=== PATIENT | female | born 1960 | race Caucasian/White ===

== ENCOUNTER → 2016-05-24 | Outpatient (CLI) | payer BC ==
[~2016-05-24] VITALS: Ht 162.6 cm; Wt 53.5 kg
[~2016-05-24] MED LIST: LIDOCAINE 2% INJ 100 MG/5 ML SDV (FOR ANES.) As Ordered ONE; METO25TAB PO; NS 1,000 ML IV SCH; PROPOFOL 200 MG/20 ML VIAL As Ordered ONE; TRAM50TA2 PO
--- NOTE | 2016-05-24 12:25 | ROOR ---
Patient Name: Diana Bonner Procedure Date: 05/24/2016 12:07 PM Date of : 1960 Age: 55 Room: [facility] Gender: Female Note Status: Finalized Procedure: Upper GI endoscopy + Biopsies Indications: Nausea with vomiting Providers: Mathew Haas MD Referring MD: WILFREDO SMITH MD Requesting Provider: Medicines: Monitored Anesthesia Care Complications: No immediate complications. Procedure: Pre-Anesthesia Assessment: - The heart rate, respiratory rate, oxygen saturations, blood pressure, adequacy of pulmonary ventilation, and response to care were monitored throughout the procedure. The Endoscope was introduced through the mouth, and advanced to the second part of duodenum. The upper GI endoscopy was accomplished without difficulty. The patient tolerated the procedure well. Findings: The Z-line was regular and was found 38 cm from the incisors. A small hiatus hernia was present. Localized minimal inflammation characterized by congestion (edema) and erythema was found in the gastric antrum. Biopsies were taken with a cold forceps for Helicobacter pylori testing. The exam of the duodenum was otherwise normal. Impression: - Z-line regular, 38 cm from the incisors. - Small hiatus hernia. - Chronic gastritis. Biopsied. - The examination was otherwise normal. Recommendation: - Patient has a contact number available for emergencies. The signs and symptoms of potential delayed complications were discussed with the patient. Return to normal activities tomorrow. Written discharge instructions were provided to the patient. - Discharge patient to home. - Follow an antireflux regimen. - Continue present medications. - Await pathology results. - Telephone GI clinic for pathology results in 1 week. - Return to referring physician. - The findings and recommendations were discussed with the patient's family. Mathew Haas MD Mathew Haas MD 05/24/2016 12:25:40 PM This report has been signed electronically. Number of Addenda: 0 Note Initiated On: 05/24/2016 12:07 PM Estimated Blood Loss: Estimated blood loss: none.
--- NOTE | 2016-05-24 12:44 | ROOR ---
Patient Name: Diana Bonner Procedure Date: 05/24/2016 12:08 PM Date of : 1960 Age: 55 Room: [facility] Gender: Female Note Status: Finalized Procedure: Colonoscopy to Cecum Indications: Screening for colorectal malignant neoplasm, Incidental - Abnormal CT of the GI tract Providers: Mathew Haas MD Referring MD: WILFREDO SMITH MD Requesting Provider: Medicines: Monitored Anesthesia Care Complications: No immediate complications. Procedure: Pre-Anesthesia Assessment: - The heart rate, respiratory rate, oxygen saturations, blood pressure, adequacy of pulmonary ventilation, and response to care were monitored throughout the procedure. The Colonoscope was introduced through the anus and advanced to the cecum, identified by appendiceal orifice and ileocecal valve. The colonoscopy was performed without difficulty. The patient tolerated the procedure well. The quality of the bowel preparation was good. Findings: The perianal and digital rectal examinations were normal. Non-bleeding internal hemorrhoids were found during retroflexion. The hemorrhoids were small and Grade I (internal hemorrhoids that do not prolapse). Scattered small-mouthed diverticula were found in the recto-sigmoid colon, in the sigmoid colon and in the descending colon. The exam was otherwise without abnormality on direct and retroflexion views. Impression: - Non-bleeding internal hemorrhoids. - Diverticulosis in the recto-sigmoid colon, in the sigmoid colon and in the descending colon. - The examination was otherwise normal on direct and retroflexion views. - No specimens collected. - The exam was otherwise normal to the cecum. Recommendation: - Patient has a contact number available for emergencies. The signs and symptoms of potential delayed complications were discussed with the patient. Return to normal activities tomorrow. Written discharge instructions were provided to the patient. - High fiber diet. - Discharge patient to home. - Continue present medications. - Repeat colonoscopy in 10 years for screening purposes. - Return to referring physician. - The findings and recommendations were discussed with the patient's family. Mathew Haas MD Mathew Haas MD 05/24/2016 12:43:51 PM This report has been signed electronically. Number of Addenda: 0 Note Initiated On: 05/24/2016 12:08 PM Estimated Blood Loss: Estimated blood loss: none.
[2016-05-24 13:00] VITALS: BP 180/90
== END ==
LOC: M OPP 10:49
PROVIDERS: ATTEND Internal Medicine Gastroenterology
DX: R93.3 Abnormal findings on diagnostic imaging of other parts of digestive tract (principal); K57.30 Diverticulosis of large intestine without perforation or abscess without bleeding; K64.0 First degree hemorrhoids; K44.9 Diaphragmatic hernia without obstruction or gangrene; K29.50 Unspecified chronic gastritis without bleeding; R11.2 Nausea with vomiting, unspecified; I25.2 Old myocardial infarction; I10 Essential (primary) hypertension; Z83.71 Family history of colonic polyps; Z57.8 Occupational exposure to other risk factors; Z79.899 Other long term (current) drug therapy; F17.200 Nicotine dependence, unspecified, uncomplicated

== ENCOUNTER → 2016-06-12 | Outpatient (CLI) | payer BC ==
[~2016-06-12] MED LIST changes: -LIDOCAINE 2% INJ 100 MG/5 ML SDV (FOR ANES.) As Ordered ONE; -NS 1,000 ML IV SCH; -PROPOFOL 200 MG/20 ML VIAL As Ordered ONE
[2016-06-12 08:55] LABS: MEAN CORPUSCULAR HGB CONC 33.2 g/dl (32.0-36.5); MEAN CORPUSCULAR VOLUME 96.3 fl (80.0-96.0); RED CELL DISTRIBUTION WIDTH 12.9 % (11.5-14.5); WHITE BLOOD COUNT 8.7 K/mm3 (4.0-10.0)
[2016-06-12 09:30] LABS: ALBUMIN 3.6 GM/DL (3.2-5.2); ALBUMIN/GLOBULIN RATIO 1.29 (1.00-1.93); BILIRUBIN,TOTAL 0.5 MG/DL (0.2-1.0); CALCIUM LEVEL 8.7 MG/DL (8.5-10.1); CREATININE FOR GFR 1.02 MG/DL (0.55-1.02); GLOMERULAR FILTRATION RATE 59.7 (>51); POTASSIUM SERUM 4.6 MEQ/L (3.5-5.1); TOTAL PROTEIN 6.4 GM/DL (6.4-8.2)
--- NOTE | 2016-06-13 00:55 | ECGEPIP ---
Stationary ECG Study [facility] Test Date: 2016-06-12 Pat Name: JORDYN MURILLO Department: Room: - Gender: F Clinical Trial Head: LEONILA : 1960 Requested By: Emilee Hu Order Number: [id number] Reading MD: Jones Florentino Measurements Intervals [place] Rate: 71 P: 73 ME: 130 QRS: -33 QRSD: 90 T: 64 QT: 398 QTc: 434 Interpretive Statements SINUS RHYTHM POSSIBLE RIGHT VENTRICULAR CONDUCTION DELAY Possible prior pancho-septal infarct Compared to the last 2 tracings in the system, no significant changes Electronically Signed On 06-13-2016 0:55:46 EST by Jones Florentino
--- NOTE | 2016-06-14 08:30 | REP ---
Lead shield chest PA and lateral views: The versus 12/03/2015. There are no infiltrates, effusions or masses. Lung ambrose are clear but again appear hyperinflated, suggestive of COPD, however, requiring clinical confirmation. The raquel, mediastinum, and bony thorax are unremarkable. Impression: There are no acute cardiopulmonary fatty changes. The lung ambrose appear chronically hyperinflated suggestive of COPD, however, requiring clinical confirmation. Signed by Ba Hargrove MD 06/12/2016 10:18 A
== END ==
LOC: M LAB 08:18
PROVIDERS: ATTEND Family Medicine
DX: I10 Essential (primary) hypertension (principal); J44.9 Chronic obstructive pulmonary disease, unspecified

== ENCOUNTER → 2016-07-29 | Outpatient (CLI) | payer BC | LOC: M LAB 11:24 | PROVIDERS: ATTEND Family Medicine | DX: E11.9 Type 2 diabetes mellitus without complications (principal) ==

== ENCOUNTER → 2016-08-27 | Outpatient (CLI) | payer BC ==
[~2016-08-27] MED LIST changes: +PROZ20CA11 PO; +VITA500055 PO
--- NOTE | 2016-08-27 15:26 | REP ---
RIGHT KNEE SERIES, COMPLETE: 08/27/2016. Comparison: 03/17/2011. Clinical history: Knee pain. Findings: Five views were provided. There is no patellar subluxation or dislocation on the sunrise view. No definite evidence of a joint effusion. There is no narrowing of the medial or lateral compartments and no visible fracture, avulsion, loose body or osteochondral defect. Small marginal osteophytes at joint margins and tibial spines. Impression: 1. Mild degenerative changes without fracture, loose body, osteochondral defect or focal lesion. No definite joint effusion. Signed by Anoop Padilla MD 08/27/2016 03:31 P
== END ==
LOC: M RAD 10:03
PROVIDERS: ATTEND Family Medicine
DX: M25.561 Pain in right knee (principal); M17.11 Unilateral primary osteoarthritis, right knee

== ENCOUNTER → 2016-08-27 | Outpatient (CLI) | payer BC ==
[2016-08-27 10:41] LABS: BASO # 0.1 K/mm3 (0.0-0.2); BASO % 0.9 % (0.0-1.0); EOS # 0.2 K/mm3 (0.0-0.50); EOS % 2.1 % (0.0-3.0); LARGE UNSTAINED CELL # 0.2 K/mm3 (0.0-0.4); LARGE UNSTAINED CELL % 2.9 % (0.0-4.0); LYMPH # 2.6 K/mm3 (1.5-4.5); LYMPH % 31.7 % (24.0-44.0); MEAN CORPUSCULAR HEMOGLOBIN 32.6 pg (27.0-33.0); MEAN CORPUSCULAR HGB CONC 33.3 g/dl (32.0-36.5); MEAN CORPUSCULAR VOLUME 98.2 fl (80.0-96.0); MONO # 0.4 K/mm3 (0.0-0.8); MONO % 5.2 % (0.0-5.0); NEUTROPHILS # 4.4 K/mm3 (1.8-7.7); NEUTROPHILS % 57.3 % (36.0-66.0); PLATELET COUNT, AUTOMATED 300 k/mm3 (150-450); RED CELL DISTRIBUTION WIDTH 12.1 % (11.5-14.5); WHITE BLOOD COUNT 7.6 K/mm3 (4.0-10.0)
[2016-08-27 11:04] LABS: ANION GAP 6 MEQ/L (8-16); BLOOD UREA NITROGEN 21 MG/DL (7-18); CALCIUM LEVEL 8.8 MG/DL (8.5-10.1); CARBON DIOXIDE LEVEL 26 MEQ/L (21-32); CHLORIDE LEVEL 108 MEQ/L (98-107); CREATININE FOR GFR 0.85 MG/DL (0.55-1.02); GLOMERULAR FILTRATION RATE > 60.0 (>51); GLUCOSE, FASTING 95 MG/DL (70-105); POTASSIUM SERUM 4.6 MEQ/L (3.5-5.1); SODIUM LEVEL 140 MEQ/L (136-145)
== END ==
LOC: M LAB 09:59
PROVIDERS: ATTEND Podiatrist
DX: Z01.818 Encounter for other preprocedural examination (principal)

== ENCOUNTER → 2016-09-08 | Day surgery (SDC) | payer BC ==
[~2016-09-08] VITALS: Ht 162.6 cm; Wt 52.2 kg
[~2016-09-08] MED LIST changes: +BACITRACIN PWD 50,000 UNITS VIAL As Ordered ONE; +BUPIVACAINE HCL 0.5% 30 ML VIAL As Ordered ONE; +LIDOCAINE 1% MDV 20ML VIAL As Ordered ONE; +LR 1,000 ML IV SCH; +MIDAZOLAM INJ 2 MG/2 ML VIAL (J2250) As Ordered ONE; +NEOSPORIN GU IRRIG 20 ML VIAL As Ordered ONE; +ONDANSETRON 4MG/2ML VIAL (J2405) As Ordered ONE; +PROPOFOL 500 MG/50 ML VIAL As Ordered ONE; +dexameTHASONE 4 MG/ML 1ML VIAL (J1100) As Ordered ONE; +fentaNYL 100 MCG/2 ML INJECTION (J3010) As Ordered ONE
[2016-09-08 11:40] VITALS: BP 155/87
--- NOTE | 2016-09-08 11:43 | REP ---
PORTABLE LEFT FOOT, THREE VIEWS: HISTORY: Postoperative. An overlying bandage is present obscuring detail. The patient is status post osteotomy of the 1st metatarsal. A metal screw is present. There is no acute fracture or dislocation. The joint spaces are normal in appearance. IMPRESSION: The patient is status post 1st metatarsal osteotomy. There is anatomic alignment. Signed by Hu Luciano MD 09/08/2016 11:57 A
--- NOTE | 2016-09-08 12:50 | RO ---
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 PROCEDURE: SURGEON: Dr. Vasyl Combs. SENIOR PARTNER: ANESTHESIA: Local MAC. IRRIGATION: Dilute bacitracin, neomycin, polymyxin B solution. HARDWARE: Right Dart-Fire 3.0 x 24 mm cannulated compression screw. HEMOSTASIS: Ankle pneumatic tourniquet at 20 mmHg for 31 minutes. DESCRIPTION OF PROCEDURE: On 09/08/2016, this 56-year-old white female was taken from her hospital room to the operating room and placed on the operating table in supine position. Following the induction of IV sedation, local and regional anesthesia, the left lower extremity was prepped and draped in the usual aseptic manner. The left lower extremity was elevated to 45 degrees from the horizontal plane for the purpose of preoperative exsanguination of the limb. During this 3-minute time period an ankle pneumatic tourniquet was applied just proximal to the medial and lateral malleolus over a well-padded site. To further exsanguinate the limb, a Blanco's Esmarch bandage was placed circumferentially extending from the digits to the distal edge of the ankle pneumatic tourniquet and rapidly inflated to 200 mmHg. Sterile draping was completed. The left lower extremity was returned to the operating table and the following procedure was performed. STEPHEN BUNIONECTOMY INTERNAL SCREW FIXATION 3.0 MM X 24 MM X ONE, LEFT FOOT: Attention was directed to the patients left foot. There was noted to be a previous cicatrix over the first metatarsophalangeal joint and this was utilized measuring approximately 5 cm in length. The incision was deepened through subcutaneous tissues, and all coursing venous tributaries were identified, underscored, clamped, cut, ligated, and electrocoagulated as necessary. A linear capsulotomy was performed in the same plane as original skin incision. The capsule and periosteal structures were then dissected free in one continuous layer dorsally, medially, and laterally, thus creating a capsule and periosteal-type envelope. The hypertrophied medial eminence was then osteotomized from dorsal to plantar through and through exiting medial to sesamoidal groove. Attention was directed to the 1st intermetatarsophalangeal space, where dissection was carried down to the level of the conjoined tendon, which was sharply dissected off the fibular sesamoid. Attention was directed to the medial surface of the 1st metatarsal, where a V-shaped osteotomy was performed with a long plantar and a short dorsal wing. Upon creation of this osteotomy, the capital fragment was transposed 40% of the width of the shaft of the 1st metatarsal and fixated with a 3.0 x 22 mm cannulated screw. The redundant cortical spike was then osteotomized from dorsal to plantar through and through. A large cystic erosion was noted in the medial surface of the 1st metatarsal. This was curetted out with a hand curet and irrigated. The redundant cortical spike was then cut with raji and bone splitting forceps and packed into the wound. Medial eminence was then contoured to the opening of the cyst and then impacted to close the cyst wall. The wound was flushed with copious amounts of dilute bacitracin, neomycin, and polymyxin B solution. Utilizing #2-0 Monocryl, the capsule was repaired in a simple interrupted and cruciate fashion. Subcutaneous tissues were coapted and maintained using #4-0 Monocryl in a simple interrupted-type fashion. The skin incision coapted and maintained utilizing #5-0 undyed Monocryl in a continuous subcuticular-type fashion. This was additionally reinforced with Steri-Strips. Following the completion of the surgical procedure, 4 mg of dexamethasone sodium phosphate was instilled proximal to the surgical site. Attention was directed towards bandaging, where a sterile compressive bandage was applied, consisting of Adaptic, 4 x 4's, 4 x 4 splints, Doris, Kerlix, and Coban. The ankle pneumatic tourniquet was rapidly deflated, and instantaneous capillary filling time was noted to digits 1 through 5 of the patient's right foot. The patient, having apparently tolerated the surgical procedure well, was taken from the operating room (OR) to the recovery room, vital signs stable, the patient afebrile, for further monitoring by the anesthesia department. All surgical specimens removed during the operative procedure were sent to pathology for gross and microscopic examination. Postoperative instructions given upon discharge.
== END | disposition home or self-care (01) ==
LOC: M SDC 07:56
PROVIDERS: ATTEND Podiatrist
DX: M20.12 Hallux valgus (acquired), left foot (principal); M79.672 Pain in left foot; I25.2 Old myocardial infarction; I10 Essential (primary) hypertension; K44.9 Diaphragmatic hernia without obstruction or gangrene; J44.9 Chronic obstructive pulmonary disease, unspecified; G47.30 Sleep apnea, unspecified; Z79.899 Other long term (current) drug therapy; F17.210 Nicotine dependence, cigarettes, uncomplicated
CPT/HCPCS: 28296; 73630; 88300; C1776; J0690; J1100; J2250; J2405; J3010

== ENCOUNTER 2016-12-26 07:30 | Emergency (ER) | payer BC, SELFPAY ==
[~2016-12-26] VITALS: Ht 162.6 cm; Wt 50.9 kg
[~2016-12-26 07:30] MED LIST changes: -BACITRACIN PWD 50,000 UNITS VIAL As Ordered ONE; -BUPIVACAINE HCL 0.5% 30 ML VIAL As Ordered ONE; -LIDOCAINE 1% MDV 20ML VIAL As Ordered ONE; -LR 1,000 ML IV SCH; +METO25TA4 PO; -METO25TAB PO; -MIDAZOLAM INJ 2 MG/2 ML VIAL (J2250) As Ordered ONE; -NEOSPORIN GU IRRIG 20 ML VIAL As Ordered ONE; -ONDANSETRON 4MG/2ML VIAL (J2405) As Ordered ONE; -PROPOFOL 500 MG/50 ML VIAL As Ordered ONE; -dexameTHASONE 4 MG/ML 1ML VIAL (J1100) As Ordered ONE; -fentaNYL 100 MCG/2 ML INJECTION (J3010) As Ordered ONE
[2016-12-26] MEDS ORDERED: METO-346 PO (07:45)
[2016-12-26] MEDS ORDERED: NORCO, ANEXSIA 5/325MG TABLET (HYDROcodone/ACETAMINOPHEN) PO ONE (08:15)
--- NOTE | 2016-12-26 09:08 | REP ---
Right ribs and PA chest: Right ribs four views: There is a fracture of the right sixth rib posterolaterally. PA chest: Comparison is the PA and lateral chest of 06/12/2016. There is no pneumothorax, hemothorax or pulmonary contusion. However, the right infrahilar zone appears enlarged as a change from the prior study. CT might be considered for further evaluation. Left lung is clear. Cardiac size is normal. Impression: The right infrahilar area appears enlarged compared to the prior study. CT might be considered for further evaluation. Signed by Ba Hargrove MD 12/26/2016 09:00 A
[2016-12-26] MEDS ORDERED: NORCOTAB PO (09:24)
[2016-12-26 09:33] VITALS: BP 151/113
[2016-12-26] MEDS ORDERED: MIRA3350 PO (09:44)
--- NOTE | 2016-12-26 13:27 | ED PDOC ---
Post-Departure Follow-Up radiology report faxed to Comfort Wiseman MD Dec 26, 2016 13:27
== END 2016-12-26 09:37 | disposition home or self-care (01) ==
LOC: M ED 07:30
DX: S22.31XA Fracture of one rib, right side, initial encounter for closed fracture (principal); W11.XXXA Fall on and from ladder, initial encounter; Y92.89 Other specified places as the place of occurrence of the external cause; Y93.89 Activity, other specified; Y99.8 Other external cause status; R93.8 Abnormal findings on diagnostic imaging of other specified body structures; I25.10 Atherosclerotic heart disease of native coronary artery without angina pectoris; F17.210 Nicotine dependence, cigarettes, uncomplicated; I25.2 Old myocardial infarction; Z79.899 Other long term (current) drug therapy

== ENCOUNTER → 2017-06-22 | Outpatient (CLI) | payer BC | LOC: M RAD 16:14 | DX: M25.561 Pain in right knee (principal) | CPT/HCPCS: 73564 ==

== ENCOUNTER → 2017-11-13 | Outpatient (CLI) | payer BC | LOC: M RAD 09:15 | DX: M54.5 Low back pain (principal) | CPT/HCPCS: 72110 ==

== ENCOUNTER 2018-09-20 17:39 | Emergency (ER) | payer BC, OTHER ==
[~2018-09-20] VITALS: Ht 162.6 cm; Wt 52.4 kg
[~2018-09-20 17:39] MED LIST changes: +HYDR-3715 PO; +METO-346 PO; +MIRA3350 PO
--- NOTE | 2018-09-20 19:27 | REPVR ---
EXAM: US Duplex Left Lower Extremity Veins, Limited EXAM DATE/TIME: 09/20/2018 6:45 PM CLINICAL HISTORY: 58 years old, female; Pain; Leg, lower; Left; Additional info: Pain, swelling TECHNIQUE: Imaging protocol: Real-time Duplex ultrasound of the Left Lower Extremity with 2-D byrd scale, color Doppler flow and spectral waveform analysis. Limited exam focused on the left lower extremity veins. COMPARISON: No relevant prior studies available. FINDINGS: Left deep veins: Unremarkable. The common femoral, femoral, proximal profunda femoral and popliteal veins are patent without thrombus. Normal Doppler waveforms. Normal compressibility and/or augmentation response. Left superficial veins: Unremarkable. Saphenofemoral junction is patent without thrombus. Soft tissues: Unremarkable. IMPRESSION: No acute findings. No evidence of deep vein thrombosis. Electronically signed by: Antoinette Price On 09/20/2018 19:27:09 PM
[2018-09-20 20:12] VITALS: BP 126/87
[2018-09-20] MEDS ORDERED: NEUR100C PO (20:19)
[2018-09-20] MEDS ORDERED: NAPR-837 PO (20:19)
[2018-09-20] MEDS ORDERED: GABAPENTIN 100 MG CAP PO ONE (20:30)
[2018-09-20] MEDS ORDERED: NAPROXEN 250 MG TAB PO ONE (20:30)
== END 2018-09-20 20:32 | disposition home or self-care (01) ==
LOC: M ED 17:39
DX: M79.662 Pain in left lower leg (principal); J44.9 Chronic obstructive pulmonary disease, unspecified; F17.210 Nicotine dependence, cigarettes, uncomplicated

== ENCOUNTER → 2018-10-18 | Outpatient (REF) | payer OTHER, MEDICAID ==
[~2018-10-18] MED LIST changes: +NAPR-837 PO; +NEUR100C PO
[2018-10-18 18:41] LABS: BASO # 0.1 10^3/uL (0.0-0.2); BASO % 1.1 % (0.0-1.0); EOS # 0.2 10^3/uL (0.0-0.50); EOS % 2.4 % (0.0-3.0); HEMATOCRIT 41.2 % (36.0-47.0); HEMOGLOBIN 15.5 g/dl (12.0-15.5); LYMPH # 2.3 10^3/uL (1.5-4.5); LYMPH % 27.9 % (24.0-44.0); MEAN CORPUSCULAR HEMOGLOBIN 38.9 pg (27.0-33.0); MEAN CORPUSCULAR VOLUME 103.5 fl (80.0-96.0); MONO # 0.7 10^3/uL (0.0-0.8); MONO % 8.7 % (0.0-5.0); NEUTROPHILS % 59.8 % (36.0-66.0); PLATELET COUNT, AUTOMATED 397 10^3/uL (150-450); RED BLOOD COUNT 3.98 10^6/uL (4.00-5.40); WHITE BLOOD COUNT 8.3 10^3/uL (4.0-10.0)
[2018-10-18 18:42] LABS: MEAN CORPUSCULAR HGB CONC 37.6 g/dl (32.0-36.5)
[2018-10-18 18:44] LABS: ALBUMIN 3.3 GM/DL (3.2-5.2); ALT/SGPT 16 U/L (12-78); BILIRUBIN,TOTAL 0.2 MG/DL (0.2-1.0); BLOOD UREA NITROGEN 14 MG/DL (7-18); CALCIUM LEVEL 8.5 MG/DL (8.5-10.1); CARBON DIOXIDE LEVEL 26 MEQ/L (21-32); CHLORIDE LEVEL 106 MEQ/L (98-107); CHOLESTEROL LEVEL 206 MG/DL (<200); CHOLESTEROL RISK RATIO 3.169 (<5); CREATININE FOR GFR 0.78 MG/DL (0.55-1.30); FREE T4 1.25 NG/DL (0.76-1.46); GLOMERULAR FILTRATION RATE > 60.0 (>51); GLUCOSE, FASTING 75 MG/DL (70-100); HDL CHOLESTEROL 65 MG/DL (>40); LDL CHOLESTEROL 116 MG/DL (<100); NON-HDL-C 141 MG/DL; POTASSIUM SERUM 4.9 MEQ/L (3.5-5.1); SODIUM LEVEL 138 MEQ/L (136-145); THYROID STIMULATING HORMONE 0.849 uIU/ML (0.358-3.740); TOTAL 25(OH) VITAMIN D 14.3 NG/ML (30.0-100.0); TOTAL PROTEIN 6.4 GM/DL (6.4-8.2); TRIGLYCERIDES LEVEL 126 MG/DL (<150)
[2018-10-18 19:20] LABS: HEMOGLOBIN A1c 5.2 %
[2018-10-21 00:06] LABS: Lyme Disease IgG/IgM Antibodie <0.91 ISR (0.00-0.90); Lyme Disease IgM Ab Quantitati <0.80 index (0.00-0.79)
== END ==
LOC: M LAB REF 17:05
PROVIDERS: ATTEND Family Medicine
DX: Z13.228 Encounter for screening for other metabolic disorders (principal)

== ENCOUNTER → 2018-11-08 | Outpatient (CLI) | payer OTHER ==
--- NOTE | 2018-11-08 10:03 | REP ---
Clinical: Symptoms related to atherosclerotic disease including absent pulses on physical examination. Technique: Real time byrd scale and color Doppler evaluation of the bilateral lower extremity arterial vasculature using linear high frequency transducer. Findings: There is evidence for significant bilateral inflow disease originating above the level of the common iliac arteries as well as moderate to significant elements of stenosis involving the bilateral external iliac arteries (left greater than right) based on obtainable velocities. Right lower extremity below the common femoral artery demonstrates elements of narrowing without significant focal stenosis appreciated. Left lower extremity demonstrates elements of narrowing as well as complete occlusion to the mid/distal superficial femoral artery extending to the level of the proximal anterior tibial artery where revascularization from a large collateral originating above the level of occlusion is noted. Aorta 61 cm/sec Right common iliac artery 167 cm/sec. Right external iliac artery 214 cm/sec. Left common iliac artery 49 - 142 cm/sec. Left external iliac artery 464 cm/sec. Peak systolic velocities (cm/sec) RIGHT LEFT Common femoral artery 209 (triphasic) 206 (monophasic) Profunda femoris 113 (monophasic) 121 (monophasic) SFA (proximal) 118 (triphasic) 112 (monophasic) SFA (mid) 104 (triphasic) 75 (monophasic) SFA (distal) 98 (triphasic) occluded Popliteal artery 58 (biphasic) occluded FESTUS (prox.) 29 (biphasic) occluded Tibioperoneal trunk 42 (biphasic) 11 (monophasic) WIRE DRAWING MACHINE OPERATOR (prox.) 52 (biphasic) 21 (monophasic) WIRE DRAWING MACHINE OPERATOR (distal) 35 (biphasic) 6 (monophasic) FESTUS (distal) 37 (biphasic) 8 (monophasic) Impression: Significant atherosclerotic disease as described above. Electronically Signed by Douglas Vences MD 11/08/2018 09:55 A
== END ==
LOC: M RAD 08:12
PROVIDERS: ATTEND Podiatrist Foot & Ankle Surgery
DX: I73.9 Peripheral vascular disease, unspecified (principal)

== ENCOUNTER → 2018-11-22 | Outpatient (CLI) | payer OTHER ==
[~2018-11-22] MED LIST changes: +OMEP40CA2 PO; +RA M500C PO; +VITA50005 PO
[2018-11-22 15:00] LABS: BASO # 0.1 10^3/uL (0.0-0.2); BASO % 0.9 % (0.0-1.0); EOS # 0.2 10^3/uL (0.0-0.50); EOS % 2.2 % (0.0-3.0); HEMATOCRIT 51.2 % (36.0-47.0); HEMOGLOBIN 17.3 g/dl (12.0-15.5); LYMPH # 3.3 10^3/uL (1.5-4.5); LYMPH % 33.6 % (24.0-44.0); MEAN CORPUSCULAR HEMOGLOBIN 32.5 pg (27.0-33.0); MEAN CORPUSCULAR HGB CONC 33.8 g/dl (32.0-36.5); MEAN CORPUSCULAR VOLUME 96.2 fl (80.0-96.0); MONO # 0.8 10^3/uL (0.0-0.8); NEUTROPHILS # 5.4 10^3/uL (1.8-7.7); NEUTROPHILS % 55.1 % (36.0-66.0); PLATELET COUNT, AUTOMATED 451 10^3/uL (150-450); RED BLOOD COUNT 5.32 10^6/uL (4.00-5.40); WHITE BLOOD COUNT 9.8 10^3/uL (4.0-10.0)
[2018-11-22 15:24] LABS: CREATININE FOR GFR 1.12 MG/DL (0.55-1.30); POTASSIUM SERUM 4.8 MEQ/L (3.5-5.1)
== END ==
LOC: M LAB 14:11
PROVIDERS: ATTEND Surgery Vascular Surgery
DX: R10.31 Right lower quadrant pain (principal); F17.210 Nicotine dependence, cigarettes, uncomplicated; I70.213 Atherosclerosis of native arteries of extremities with intermittent claudication, bilateral legs

== ENCOUNTER → 2018-11-24 | Outpatient (CLI) | payer OTHER ==
--- NOTE | 2018-11-24 11:12 | REP ---
CT CHEST WITHOUT CONTRAST: Low-dose screening exam. HISTORY: Nicotine dependence. Lung cancer screening. Comparison is made with right rib radiographs from December 26, 2016. CT FINDINGS: There is a fairly large coarse band of fibroatelectatic change through the right middle lobe. This may have been present previously on the December 26, 2016 radiographs. It is above the imaging field of view for the CT study of the abdomen obtained December 03, 2015. The largest portion of this band of parenchymal opacity measures 1.5 cm in greatest transverse dimension. In addition, there is a 6 mm rectangular subpleural nodular opacity in the right lower lobe on page 76 of 121 in today's study. There is a 3 mm nodule in the left lower lobe on page 81, which is visible in retrospect on 2016 prior study. There is an oval-shaped air cyst or bullous 3.7 cm in diameter in the left lower lobe. There is a 3 mm subpleural nodular opacity in the left upper lobe on page 45. The 2 mm right upper lobe subpleural nodule is seen on page 38. There are mild bilateral upper lobe emphysematous changes. No other significant pulmonary nodule is appreciated. IMPRESSION: Possibly chronic fibroatelectatic band of opacity in the right middle lobe. 6 mm nodule in the right lower lobe. Scattered smaller nodules. Lung RADS category 3 probably benign findings. 3- 6 month follow-up CT study recommended. Electronically Signed by Leopoldo Corona MD 11/24/2018 12:37 P
== END ==
LOC: M RAD 08:32
PROVIDERS: ATTEND Family Medicine
DX: Z12.2 Encounter for screening for malignant neoplasm of respiratory organs (principal); F17.210 Nicotine dependence, cigarettes, uncomplicated

== ENCOUNTER → 2018-11-28 | Outpatient (CLI) | payer OTHER ==
[~2018-11-28] MED LIST changes: +ASPI81CH8 PO; +ASPI81TA85 PO; +ATOR1TAB21 PO; +ATOR80TA59 PO; +DULC10SU2 PR; +ELIQ5TAB PO; +GABA-845 PO; +HYDR12CA PO; +LORA1TAB4 PO; +METO1TAB87 PO; +METO50TA7 PO; +NAPR-885 PO; +NITR0.3S4 SL; -OMEP40CA2 PO; +OMEP40CA97 PO; +OXYC1TAB23 PO; +PANT40TA3 PO; +PATIENT COMMENTS; +POTA1TAB14 PO; +REME15TA PO
--- NOTE | 2018-11-28 11:05 | REP ---
DUPLEX DOPPLER ULTRASOUND CELIAC AND SUPERIOR MESENTERIC ARTERY: Real-time ultrasound evaluation and duplex Doppler interrogation of celiac and superior mesenteric arteries performed in the fasting state and following a meal challenge. In the fasting state, there is elevated peak systolic velocity of the celiac axis at 296 cm/s, end diastolic velocity is 65.7 cm/s. The elevated peak systolic velocity is suggestive of stenosis 70% or greater. Proximal superior mesenteric artery demonstrates fasting peak systolic velocity 242 cm/s and mid superior mesenteric artery 212 cm/s. These values do not fulfill criteria for superior mesenteric artery stenosis. Flow velocities increase in a relatively normal fashion following meal challenge. 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 No compelling duplex Doppler sonographic evidence of significant stenosis of the superior mesenteric artery. Electronically Signed by Ba Ellis MD 11/28/2018 05:31 P
== END ==
LOC: M RAD 07:23
PROVIDERS: ATTEND Surgery Vascular Surgery
DX: R11.2 Nausea with vomiting, unspecified (principal)

== ENCOUNTER 2018-12-12 06:53 | Inpatient (IN) | payer OTHER ==
[~2018-12-12] VITALS: Ht 162.6 cm; Wt 52.3 kg
[~2018-12-12 06:53] MED LIST changes: -ASPI81CH8 PO; -ASPI81TA85 PO; -ATOR1TAB21 PO; -ATOR80TA59 PO; -DULC10SU2 PR; -ELIQ5TAB PO; -GABA-845 PO; -HYDR12CA PO; -LORA1TAB4 PO; -METO1TAB87 PO; -METO50TA7 PO; -NITR0.3S4 SL; +OMEP40CA2 PO; -OMEP40CA97 PO; -OXYC1TAB23 PO; -PANT40TA3 PO; -PATIENT COMMENTS; -POTA1TAB14 PO; -REME15TA PO
[2018-12-12] MEDS ORDERED: BUPIVACAINE HCL 0.5% 10 ML VIAL As Ordered ONE (06:55)
[2018-12-12] MEDS ORDERED: diphenhydrAMINE INJ 50MG/ML VIAL (J1200) As Ordered ONE (06:55)
[2018-12-12] MEDS ORDERED: fentaNYL 100 MCG/2 ML INJECTION (J3010) As Ordered ONE (06:55)
[2018-12-12] MEDS ORDERED: LIDOCAINE 2% MDV 20 ML VIAL As Ordered ONE (06:56)
[2018-12-12] MEDS ORDERED: MIDAZOLAM INJ 2 MG/2 ML VIAL (J2250) As Ordered ONE (06:56)
[2018-12-12] MEDS ORDERED: HEPARIN 1,000 UNITS/ML 10ML VIAL (FOR RADIOLOGY& DIALYSIS ONLY) As Ordered ONE (06:56)
[2018-12-12] MEDS ORDERED: ISOVUE-300 61% 50ML VIAL (Q9967) As Ordered ONE (06:56)
[2018-12-12] MEDS ORDERED: ONDANSETRON 4MG/2ML VIAL (J2405) As Ordered ONE (09:46)
--- NOTE | 2018-12-12 10:20 | REP ---
Clinical: Evaluate for intraperitoneal hemorrhage. Technique: Axial noncontrast images from the lung bases to the pubic symphysis with coronal and sagittal re-formations. Findings: Lung bases demonstrate COPD and chronic interstitial changes as well as scattered ill-defined areas of opacity involving the right middle lobe and left lower lobe. Visualized heart and pericardium grossly normal. The patient appears to be status post intraluminal stent placement at the origin of the celiac access and superior mesenteric artery. Moderate atherosclerotic changes to the aorta and branch vessels noted without aneurysm. No periaortic inflammatory stranding or fluid is identified to suggest leak. Liver, spleen, pancreas, gallbladder, bilateral adrenal glands and kidneys are essentially normal. Small amount of contrast identified in the urinary tract collecting system as well as within the bladder consistent with recent contrast enhanced examination/procedure. The enteric system is without obstruction or acute inflammatory process. Scattered diverticulosis noted without acute diverticulitis. Pelvis demonstrates relatively normal bladder and evidence of prior hysterectomy. No ascites. No free air. No adenopathy. No evidence for intraperitoneal or retroperitoneal hemorrhage/hematoma. Musculoskeletal structures demonstrate age-related changes without focal osseous abnormality. Impression: 1. Status post celiac axis and superior mesenteric artery stent placement. 2. No evidence for intraperitoneal or retroperitoneal hemorrhage or hematoma. 3. No obvious acute abdominopelvic pathology appreciated. 4. Chronic changes as described above. 5. Lung bases demonstrate elements of opacity/irregularity involving the right middle lobe and left lower lobe which warrant short-term follow-up evaluation. Electronically Signed by Douglas Vences MD 12/12/2018 10:11 A
[2018-12-12] MEDS ORDERED: NORCO, ANEXSIA 5/325MG TABLET (HYDROcodone/ACETAMINOPHEN) As Ordered ONE (10:22)
[2018-12-12] MEDS: D5W/0.45% SODIUM CHLORIDE 1,000 ML IV SCH ×2 (10:36→18:14)
[2018-12-12] MEDS ORDERED: ONDANSETRON 4MG/2ML VIAL (J2405) IV PRN (10:45)
[2018-12-12] MEDS ORDERED: ACETAMINOPHEN TAB 650MG DOSE (2X325MG) PO PRN (10:45)
[2018-12-12] MEDS ORDERED: NORCO, ANEXSIA 5/325MG TABLET (HYDROcodone/ACETAMINOPHEN) PO PRN ×2 (10:45→14:00)
[2018-12-12 11:22] LABS: BASO # 0.1 10^3/uL (0.0-0.2); BASO % 0.5 % (0.0-1.0); EOS # 0.1 10^3/uL (0.0-0.50); EOS % 0.8 % (0.0-3.0); HEMATOCRIT 54.6 % (36.0-47.0); HEMOGLOBIN 18.4 g/dl (12.0-15.5); LYMPH # 2.8 10^3/uL (1.5-4.5); LYMPH % 28.3 % (24.0-44.0); MEAN CORPUSCULAR HEMOGLOBIN 33.2 pg (27.0-33.0); MEAN CORPUSCULAR HGB CONC 33.7 g/dl (32.0-36.5); MEAN CORPUSCULAR VOLUME 98.4 fl (80.0-96.0); MONO # 0.6 10^3/uL (0.0-0.8); MONO % 5.6 % (0.0-5.0); NEUTROPHILS # 6.3 10^3/uL (1.8-7.7); NEUTROPHILS % 64.5 % (36.0-66.0); PLATELET COUNT, AUTOMATED 352 10^3/uL (150-450); RED BLOOD COUNT 5.55 10^6/uL (4.00-5.40); WHITE BLOOD COUNT 9.7 10^3/uL (4.0-10.0)
[2018-12-12 11:32] LABS: PROTHROMBIN TIME 13.9 SECONDS (11.8-14.0)
[2018-12-12 12:13] LABS: BLOOD UREA NITROGEN 15 MG/DL (7-18); CALCIUM LEVEL 8.1 MG/DL (8.5-10.1); CARBON DIOXIDE LEVEL 20 MEQ/L (21-32); CHLORIDE LEVEL 106 MEQ/L (98-107); CREATININE FOR GFR 0.86 MG/DL (0.55-1.30); GLOMERULAR FILTRATION RATE > 60.0 (>51); GLUCOSE, FASTING 147 MG/DL (70-100); POTASSIUM SERUM 4.1 MEQ/L (3.5-5.1); SODIUM LEVEL 134 MEQ/L (136-145)
[2018-12-12 12:16] LABS: PARTIAL THROMBOPLASTIN TIME > 240.0 SECONDS (25.0-38.4)
[2018-12-12] MEDS ORDERED: CLOPIDOGREL 300 MG TAB (PLAVIX) PO STA (12:22)
[2018-12-12] MEDS ORDERED: CLOPIDOGREL 75 MG TAB As Ordered ONE (12:29)
[2018-12-12 13:48] VITALS: BP 160/102
[2018-12-12 14:30] VITALS: BP 150/105
[2018-12-12] MEDS: ONDANSETRON 4MG/2ML VIAL (J2405) IV PRN ×2 (15:18→21:20)
[2018-12-12 16:41] VITALS: BP 142/82
[2018-12-12] MEDS ORDERED: zolPIDEM TARTRATE 5 MG TAB PO PRN (18:15)
[2018-12-12 18:30] VITALS: BP 144/105
[2018-12-12] MEDS ORDERED: METOPROLOL TART 25 MG TABLET PO ONE ×2 (18:30→20:45)
[2018-12-12] MEDS ORDERED: PANTOPRAZOLE 40MG INJ (PROTONIX) (C9113) IV SCH (21:00)
[2018-12-12 21:50] LABS: CK-MB VALUE MASS 10.4 NG/ML (<3.6); TROPONIN I 1.6 NG/ML (< 0.10)
[2018-12-12 22:00] VITALS: BP 156/110
--- NOTE | 2018-12-12 22:11 | REPVR ---
EXAM: XR Chest, 1 View EXAM DATE/TIME: 12/12/2018 (9:36pm) CLINICAL HISTORY: 58 year old female with dypnea. Lateral CXR requested. TECHNIQUE: Imaging protocol: Lateral CXR, 1 view COMPARISON: Abdomen and CXR plain films of 12/12/18 (9:34pm) Frontal CXR of 12/26/16 FINDINGS: A lateral chest film is provided for review. A frontal chest film was obtained a few minutes earlier. Coarse interstitial disease is seen in the mid and upper lung zones (not present in 2016). No consolidation and no pleural effusions. Stable, normal heart size. No pneumothorax. IMPRESSION: Coarse, prominentlung markings noted in the mid and upper lung zones, not present 2 years ago. No consolidation and no pleural effusions. An acute bilateral interstitial pneumonitis is of concern. Clinical correlation and follow-up are suggested. Electronically signed by: Nancy Garduno On 12/12/2018 22:11:05 PM
--- NOTE | 2018-12-12 22:25 | REPVR ---
EXAM: XR Abdomen, 3 or More Views EXAM DATE/TIME: 12/12/18 (9:36pm) CLINICAL HISTORY: 58 year old female with abdominal pain. S/P stent placement today. Possible bowel obstruction or free air. Prior surgery. Surgery date: Post-operative (0-2 days). TECHNIQUE: Imaging protocol: Frontal view of the abdomen/pelvis with upright view of the abdomen and frontal CXR COMPARISON: No relevant prior studies available FINDINGS: The accompanying frontal chest film demonstrates coarse, prominent lung markings in the mid and upper lung zones. No consolidation and no pleural effusions. Hyperinflation is also noted. Abdomen films demonstrate a nonspecific bowel gas pattern. Air-filled small and large bowel loops are noted. No free air. No abnormal mass. Two (2) short adjacent metallic stents (each approx. 13 mm length) are oriented vertically, in the medial LUQ area, overlying the left margin of the L1 vertebral body. Contrast is seen in the urinary bladder. IMPRESSION: Coarse lung disease in the mid and upper lung zones, of unclear chronicity and unclear clinical significance. An acute pneumonitis cannot be excluded. No consolidation and no pleural effusions. The bowel gas pattern is nonspecific and non-obstructed. Air-filled small and large bowel loops are noted, predominantly in the lower abdomen and pelvis. 2 adjacent, short metallic stents (each 13 mm length) are seen in the medial LUQ area, oriented vertically, overlying the left margin of the L1 vertebral body. Electronically signed by: Nancy Garduno On 12/12/2018 22:24:37 PM
[2018-12-13] VITALS (14 sets, daily range): BP systolic 110–180; BP diastolic 87–142
--- NOTE | 2018-12-13 00:31 | HPEPDOC ---
General Date of Admission Dec 12, 2018 at 13:48 Date of Service: Dec 12, 2018 Chief Complaint The patient is a 58-year-old female admitted with a reason for visit of Lt Leg Pain. Source: Patient, RN/MD Exam Limitations: No limitations Severity: Moderate Associated Symptoms: Nausea History of Present Illness Consultation Report Consultation requested by Dr Kilpatrick Reason for consult: Tachycardia , uncontrolled hypertension with elevated troponin. HPI: 58 year old female with PM of PAD, left leg claudication, Celiac and SMA stenosis, AMI in the past, hypertension , Smoker, chronic cough , chronic abdo rashid pain , nausea and vomiting daily underwent elective SMA and Celiac artery stenting today. Post procedure patient complained of abdominal pain, nausea. She was noted to be tachycardic up to 160s . EKG showed sinus tachycardia, Her blood pressure was elevated and she was diaphoretic. Pateint had a CT abdomen and Xray abdomen did not show any free air or any extravasation of blood. Had a CXR which was negative for any pneumothorax. Pateint was given 50 of metoprolol and cardiac markers ordered. Troponin was elevated to 1.5 first set, pateint continued to have uncontrolled hypertension and nausea. Also remained tachycardic so the hospitalist service was consulted. Patient complained of diffuse abdominal pain but maximum in the epigastrium and left upper quadrant about 3/10 in intensity, dull aching, associated with nausea but no vomiting. Home Medications Scheduled Ergocalciferol (Vitamin D2) (Vitamin D2) 50,000 Unit Capsule, 50,000 UNIT PO QWEEK, (Reported) tuesday Magnesium Oxide (Magnesium) 500 Mg Capsule, 500 MG PO PRN, (Reported) Omeprazole (Omeprazole) 40 Mg Capsule.dr, 40 MG PO BIDP, (Reported) Scheduled PRN Naproxen (Naproxen) 500 Mg Tablet, 500 MG PO for PAIN, (Reported) Allergies Coded Allergies: No Known Allergies (Unverified , 11/24/18) Past Medical History Medical History PAD Hypertension Celiac artery and SMA stenosis Surgical History Appendectomy right oophorectomy partial hysterectomy Incisional hernia surgery in right groin Family History Significant Family History: Cancer (mother ovarian), Heart disease (father), Hypertension, Other (stroke father) Social History * Smoker: current smoker Alcohol: Denies Drugs: denies A-FIB/CHADSVASC A-FIB History Current/History of A-Fib/PAF?: No Review of Systems Constitutional: Denies: Chills, Fever, Night Sweats Eyes: Denies: Pain, Vision change ENT: Denies: Head Aches, Ear Pain, Dysphagia Skin: Reports: Rash (upper back); Denies: Lesions, Breakdown Pulmonary: Reports: Cough (chronic); Denies: Dyspnea Cardiovascular: Denies: Chest Pain, Palpitations, Orthopnea, Paroxysmal Noc. Dyspnea, Lt Headedness Gastrointestinal: Reports: Nausea, Abdominal Pain; Denies: Vomiting, Diarrhea, Constipation, Melena, Hematochezia Genitourinary: Denies: Dysuria, Frequency, Incontinence, Retention Musculoskeletal: Reports: Leg Pain (left); Denies: Neck Pain, Back Pain, Joint Pain, Muscle Pain, Spasms Physical Examination General Exam: Positive: Alert, Cooperative, No Acute Distress Eye Exam: Positive: PERRLA, Conjunctiva & lids normal, EOMI; Negative: Sclera icteric ENT Exam: Positive: Atraumatic, Mucous membr. moist/pink, Pharynx Normal Neck Exam: Positive: Supple; Negative: JVD, thyromegaly Chest Exam: Positive: Rhonchi (on expiration), Wheezing (on deep expiration), Diminished Heart Exam: Positive: Tachycardic, Regular Rhythm, Normal S1, Normal S2; Negative: Irregular Rhythm, Gallops, Murmurs, Rubs Telemetry: Positive: Sinus, Tachycardia Abdomen Exam: Positive: BS Hyperactive, Soft, Tenderness (in the epigastrium and left upper quadrant. ) Extremity Exam: Negative: Clubbing, Cyanosis, Edema Vital Signs Vital Signs Date Time Temp Pulse Resp B/P (MAP) Pulse Ox O2 Delivery O2 Flow Rate FiO2 12/12/18 21:00 124 156/110 12/12/18 18:39 94 1.0 12/12/18 18:38 20 12/12/18 14:09 97.9 Laboratory Data Labs 24H Laboratory Tests 2 12/12/18 10:52: Immature Granulocyte % (Auto) 0.3, White Blood Count 9.7, Red Blood Count 5.55H, Hemoglobin 18.4H, Hematocrit 54.6H, Mean Corpuscular Volume 98.4H, Mean Corpuscular Hemoglobin 33.2H, Mean Corpuscular Hemoglobin Concent 33.7, Red Cell Distribution Width 12.3, Platelet Count 352, Neutrophils (%) (Auto) 64.5, Lymphocytes (%) (Auto) 28.3, Monocytes (%) (Auto) 5.6H, Eosinophils (%) (Auto) 0.8, Basophils (%) (Auto) 0.5, Neutrophils # (Auto) 6.3, Lymphocytes # (Auto) 2.8, Monocytes # (Auto) 0.6, Eosinophils # (Auto) 0.1, Basophils # (Auto) 0.1, Nucleated Red Blood Cells % (auto) 0.0, Prothrombin Time 13.9, Prothromb Time International Ratio 1.10, Activated Partial Thromboplast Time > 240.0*H, Anion Gap 8, Glomerular Filtration Rate > 60.0, Blood Urea Nitrogen 15, Creatinine 0.86, Sodium Level 134L, Potassium Level 4.1, Chloride Level 106, Carbon Dioxide Level 20L, Calcium Level 8.1L 12/12/18 21:03: Total Creatine Kinase 130, Creatine Kinase MB 10.4H, Creatine Kinase MB Relative Index 8.00H, Troponin I 1.60*H CBC/BMP Laboratory Tests 12/12/18 10:52 Red Blood Count 5.55 H, Mean Corpuscular Volume 98.4 H, Mean Corpuscular Hem oglobin 33.2 H, Mean Corpuscular Hemoglobin Concent 33.7, Red Cell Distribution Width 12.3, Neutrophils (%) (Auto) 64.5, Lymphocytes (%) (Auto) 28.3, Monocytes (%) (Auto) 5.6 H, Eosinophils (%) (Auto) 0.8, Basophils (%) (Auto) 0.5, Neutrophils # (Auto) 6.3, Lymphocytes # (Auto) 2.8, Monocytes # (Auto) 0.6, Eosinophils # (Auto) 0.1, Basophils # (Auto) 0.1, Calcium Level 8.1 L Assessment/Plan Hypertensive urgency patient has received metoprolol will continue will add clonidine Q6H Elevated troponin No Chest pain no ekg changes possibly due to tachycardia and hypertensive urgency will cycle cardiac markers. Sinus tachycardia patient may be intravascularly depleted along with pain and nausea Her HH is up to 18 suggesting dehydration. May be having some nicotine withdrawal also continue IVF, continue metoprolol. Will not give any patch for now. She does not feel any craving at present. Abdominal pain and nausea possibly due to repercussion as per surgeon ct scan and xray abdomen negative for acute post procedure complications. continue zofran, tylenol, codeine will add pantoprazole. PAD as per Dr Kilpatrick has received plavix 300 mg COPD and Emphysema in CXR. long time smoker with chronic cough denies any SOB though has wheezing on exam will make Xopenex available if needed. Protein calorie malnutrition Has bitemporal wasting, BMI 19.8 probably due to chronic abdominal ischemia and chronic nausea and vomiting Chronic lung disease. Right middle lobe and Left lower lobe opacity / irregularity needs short time follow up CT to demonstrate stability Plan / VTE VTE Prophylaxis Ordered?: Yes HAL ALICEA MD Dec 13, 2018 00:29
[2018-12-13] MEDS: cloNIDine 0.1 MG TAB PO SCH ×2 (00:43→05:31)
[2018-12-13] MEDS ORDERED: LEVALBUTEROL 1.25 MG/0.5 ML CONCENTRATE NEB INH PRN (01:30)
[2018-12-13] MEDS: METOPROLOL TART 25 MG TABLET PO SCH ×2 (03:16→10:26)
[2018-12-13 03:25] LABS: CK-MB VALUE MASS 11.8 NG/ML (<3.6); MB/CK RELATIVE INDEX 5.24 (< OR =4); TROPONIN I 0.95 NG/ML (< 0.10)
[2018-12-13] MEDS ORDERED: AZITHROMYCIN 250 MG TAB PO ONE (03:30)
[2018-12-13] MEDS ORDERED: methylPREDNISolone INJ 40 MG/1 ML VIAL (J2920) IV ONE (03:30)
--- NOTE | 2018-12-13 03:37 | IPNPDOC ---
Text Note Date of Service The patient was seen on 12/13/18. NOTE Patient complaining of SOB, tachypneic to 36/ min, Bilateral wheezing and ronchi worsened. Cxr repeated, To me it seems like increased vascular markings with chronic interstitial changes and emphysema. Will send the plate to eladia chapman for read I think patient may be having COPD exacerbation with mild fluid overload. will stop IVf give lasix 20 mg once give nebs, methyl pred and azithromycin 1 dose each. continue oxygen supplementation. Troponin down trending. though EKG V4, V5 and V6 shows more prominent T wave inversion and ST depression. Denies any chest pain. The EKG changes could be due to hypertensive urgency However if continues to be SOB and EKG changes persist now with management of severe hypertension will consult Cardiology as patient being a smoker and vasculopath an NSTEMI is definitely in the differential VS,Naomie, I+O VS, Naomie, I+O Laboratory Tests 12/12/18 10:52 Red Blood Count 5.55 H, Mean Corpuscular Volume 98.4 H, Mean Corpuscular Hemoglobin 33.2 H, Mean Corpuscular Hemoglobin Concent 33.7, Red Cell Distribution Width 12.3, Neutrophils (%) (Auto) 64.5, Lymphocytes (%) (Auto) 28.3, Monocytes (%) (Auto) 5.6 H, Eosinophils (%) (Auto) 0.8, Basophils (%) (Auto) 0.5, Neutrophils # (Auto) 6.3, Lymphocytes # (Auto) 2.8, Monocytes # (Auto) 0.6, Eosinophils # (Auto) 0.1, Basophils # (Auto) 0.1, Calcium Level 8.1 L Vital Signs Date Time Temp Pulse Resp B/P (MAP) Pulse Ox O2 Delivery O2 Flow Rate FiO2 12/13/18 03:16 109 164/108 12/13/18 03:05 95.1 36 93 1.0 I&O- Last 24 Hours up to 6 AM 12/13/18 05:59 Intake Total 0 ml Output Total 201 ml Balance -201 ml HAL ALICEA MD Dec 13, 2018 03:37
[2018-12-13] MEDS ORDERED: IPRATROPIUM 0.02% SOLN 0.5MG/2.5 ML NEB INH PRN (03:45)
[2018-12-13] MEDS ORDERED: FUROSEMIDE 20 MG/2 ML VIAL (J1940) IV ONE (03:45)
--- NOTE | 2018-12-13 05:07 | REPVR ---
EXAM: XR Chest, 1 View EXAM DATE/TIME: 12/13/2018 3:26 AM CLINICAL HISTORY: 58 years old, female; Shortness of breath; Additional info: SOB TECHNIQUE: Imaging protocol: XR of the chest, 1 view. COMPARISON: CR Chest, 1 view 12/12/2018 9:31 PM CR - Ribs uni W-PA CHEST ONLY 12/26/2016 8:28:20 AM FINDINGS: Lungs: The lungs are hyperinflated, unchanged. There is an increase in upper lobe predominant interstitial thickening and bilateral upper lobe opacities compared to the exam of one day prior. Pleural space: There are no pleural effusions present. No pneumothorax is seen. Heart/Mediastinum: The heart is normal in size. Bones/joints: Deformity from an old healed right sixth rib fracture is again noted. IMPRESSION: Worsening of bilateral upper lobe opacities and interstitial thickening, probably due to multifocal pneumonia. Electronically signed by: Jena Armenta On 12/13/2018 05:07:20 AM
[2018-12-13 06:27] LABS: BASO % 0.1 % (0.0-1.0); HEMATOCRIT 56.6 % (36.0-47.0); HEMOGLOBIN 19.9 g/dl (12.0-15.5); LYMPH # 1.4 10^3/uL (1.5-4.5); LYMPH % 6.4 % (24.0-44.0); MEAN CORPUSCULAR HEMOGLOBIN 35.5 pg (27.0-33.0); MEAN CORPUSCULAR HGB CONC 35.2 g/dl (32.0-36.5); MEAN CORPUSCULAR VOLUME 101.1 fl (80.0-96.0); MONO # 1.5 10^3/uL (0.0-0.8); NEUTROPHILS # 18.7 10^3/uL (1.8-7.7); NEUTROPHILS % 85.9 % (36.0-66.0); PLATELET COUNT, AUTOMATED 376 10^3/uL (150-450); WHITE BLOOD COUNT 21.7 10^3/uL (4.0-10.0)
[2018-12-13] MEDS ORDERED: SODIUM CHLORIDE 0.9% 1000ML IV ONE (06:45)
[2018-12-13 07:25] LABS: ABG BASE EXCESS -6.2 (-2.0-2.0); ABG HCO3 17.4 MEQ/L (22.0-26.0); ABG O2 SATURATION 87.4 % (95.0-99.0); ABG PARTIAL PRESSURE O2 53.9 mmHg (75.0-100.0); ABG STANDARD HCO3 19.3 MEQ/L (22.0-26.0); ABG TOTAL CO2 18.3 MEQ/L (22.0-29.0); ABG pH (ARTERIAL) 7.366 UNITS (7.350-7.450)
[2018-12-13 07:43] LABS: CALCIUM LEVEL 8.8 MG/DL (8.5-10.1); CREATININE FOR GFR 1.34 MG/DL (0.55-1.30); GLOMERULAR FILTRATION RATE 43.1 (>51); POTASSIUM SERUM 4.4 MEQ/L (3.5-5.1)
[2018-12-13] MEDS ORDERED: NS 1,000 ML IV ONE (08:00)
[2018-12-13] MEDS ORDERED: cefTRIAXone SOD 2 GM in D5W MINI-BAG PLUS 50 ML IV SCH (08:00)
[2018-12-13] MEDS ORDERED: LISINOPRIL 10 MG TAB PO SCH (09:00)
[2018-12-13] MEDS ORDERED: CLOPIDOGREL 75 MG TAB PO SCH (09:00)
[2018-12-13] MEDS ORDERED: ATORVASTATIN 20 MG TAB PO SCH (09:00)
--- NOTE | 2018-12-13 09:31 | ECGEPIP ---
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
--- NOTE | 2018-12-13 09:34 | ECGEPIP ---
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
--- NOTE | 2018-12-13 09:45 | ECGEPIP ---
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
--- NOTE | 2018-12-13 10:38 | IPNPDOC ---
Date Seen The patient was seen on 12/13/18. Progress Note Vascular Surgery Dr Kilpatrick. HPI: 58year oldF with chronic abdominal pain , nausea and vomiting daily underwent elective SMA and Celiac artery stenting 12/12/[address] Kilpatrick. The pt has also had pain with ambulation/claudication symptoms LLE and had also been scheduled for LLE angiogram, this had been postponed related to her abdominal pain. Following her procedure the pt had been complaining of SOB, tachypneic to 36/ min, Bilateral wheezing and rhonchi worsened. Hospitalist consulted. This AM the pt continues to experience SOB. She states she continues to have lower abdominal pain, nausea. No vomiting. Denies CP. Reports non productive cough. Denies any Headache, palpitations, or changes in bowel or bladder habits. 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 PE: GEN: 58yoF, appears stated age. No acute distress. Alert and oriented x 3. HEENT: Normocephalic, atraumatic. Sclera are nonicteric. Conjunctiva without injection. No facial asymmetry. Moist mucous membranes. CHEST: Regular rate and rhythm, +S1, +S2 LUNGS: decreased BS bilaterally with rhonchi noted, rales at bases. No wheezes. ABD: Round, soft, no tenderness with palpation, non-distended. +Bowel sounds throughout. No rebound or guarding. No costovertebral angle tenderness. EXT: Pulses 2+ bilaterally dorsalis pedis and radial. No lower extremity edema appreciated. SKIN: [place], dry, warm. Capillary refill <2sec. No rashes. NEURO: Alert and oriented x 3. Cranial nerves III-XII are intact. No focal deficits appreciated. EKG SINUS TACHYCARDIA Left axis deviation LEFT VENTRICULAR HYPERTROPHY by aVL criteria New inferior Q's a marked change from tracing done 06-12-16 ST-T wave abnormalities, consider ischemia Electronically Signed on 12-13-2018 9:31:39 EDT by Hernesto Goodman EKG SINUS TACHYCARDIA WITH SHORT NH INTERVAL WITH OCCASIONAL SUPRAVENTRICULAR PREMATURE COMPLEXES ANTEROSEPTAL MYOCARDIAL INFARCTION, PROBABLY RECENT Continuing evolution of anterospetal ST-T wave changes when compared to tracing done 0248 on the same day Consider anteroseptal infarct Electronically Signed on 12-13-2018 9:44:45 EDT by Hernesto Goodman A&P: 1. H/O chronic abdominal pain, N/V. Celiac and SMA stenosis S/P stent placement 12/12/[address] Kilpatrick. Pt with cont'd lower abdominal pain and nausea, pt states slightly less pronounced c/w yesterday. Plavix 300mg po x 1 12/12/18, continue with 75 mg po daily. IV Zofran last dose 12/12 PM. 2. Abn. EKG/Elevated troponin. Hospitalist managing. Anticipate possible transfer to [facility] for further evaluation. 3. SOB/Cough/ COPD exacerbation. Mgmt as per primary team. BC, SC pending. Supplemental O2. Duonebs. IV Rocephin/Zmax IV Solumedrol. Lasix 20 mg IV x 1 dose VASCULAR SURGICAL ATTENDING NOTE: Dr. Dino Kilpatrick M.D. The patient was seen on 12/13/18 at 09:27. This is a 58-year-old female admitted with abdominal pain, nausea and vomiting after undergoing a speed her mesenteric artery and celiac artery angiogram, angioplasty and stenting via a left brachial artery approach. After revascularization the patient had a significant amount of abdominal pain and was sent for a noncontrast CT of the abdomen and pelvis which showed no hematoma or extravasation at the placement of the stents or from the abdominal aorta. The patient was monitored and after 4-5 hours was still complaining of nausea with the inability to vomit but with improvement in her abdominal pain. The patient had sinus tachycardia and hypertension after the procedure which was thought to be secondary to her pain. The patient was hypertensive prior to the procedure. The patient was given Lopressor in an attempt to improve her tachycardia and hypertension with slight improvement. Later in the evening the patient continued with sinus tachycardia with elevation of her heart rate into the 160s. A cardiac index panel was sent which showed her troponin to be 1.60. This was her peak troponin and has started to trend downward on follow-up cardiac index panel evaluation. Once the initial troponin of 1.60 was related to me by phone from the nurse on the floor a medical consult was placed to Dr. Serra for management of the patient medically. Today the patient still complains of some abdominal pain and cramping which is slightly improved. The left upper extremit y is well-perfused with good pulses at the brachial, radial and ulnar distributions. The incision from the left brachial artery exposure is clean with the dressing intact. Vital Signs Date Time Temp Pulse Resp B/P (MAP) Pulse Ox O2 Delivery O2 Flow Rate FiO2 12/13/18 11:22 165/88 12/13/18 10:26 104 142/103 12/13/18 09:09 96.6 104 34 134/96 (109) 94 4.0 12/13/18 08:50 4.0 12/13/18 08:15 4.0 12/13/18 08:00 96.2 102 18 153/111 (125) 90 4.0 12/13/18 06:49 98 40 110/ (36) 98 4.0 12/13/18 05:40 115 38 138/110 (119) 94 4.0 12/13/18 05:35 96.0 105 20 96 3.0 12/13/18 05:31 158/110 12/13/18 05:30 4.0 12/13/18 04:35 93 3.0 12/13/18 04:31 90 2.0 12/13/18 04:30 88 12/13/18 04:30 89 1.0 12/13/18 03:16 109 164/108 12/13/18 03:05 95.1 109 36 164/108 (126) 93 1.0 12/13/18 02:30 34 93 1.0 12/13/18 00:43 162/101 12/13/18 00:00 107 25 162/101 (121) 93 1.0 12/12/18 22:00 96.8 124 21 156/110 (125) 93 1.0 12/12/18 21:00 124 156/110 12/12/18 20:00 1.0 12/12/18 18:39 94 1.0 12/12/18 18:38 168 20 93 1.0 12/12/18 18:35 160 144/105 12/12/18 18:30 160 18 144/105 (118) 91 12/12/18 16:41 120 16 142/82 (102) 96 12/12/18 15:49 18 12/12/18 15:19 20 12/12/18 14:30 150/105 (120) 12/12/18 14:09 97.9 105 18 96 2 12/12/18 13:48 97.0 111 17 160/102 (121) 92 12/12/18 13:08 105 18 96 Intake & Output 12/13/18 06:00 Intake Total 980 ml Output Total 451 ml Balance 529 ml Laboratory Tests 12/12/18 21:03: Total Creatine Kinase 130, Creatine Kinase MB 10.4H, Creatine Kinase MB Relative Index 8.00H, Troponin I 1.60*H 12/13/18 02:47: Total Creatine Kinase 225H, Creatine Kinase MB 11.8H, Creatine Kinase MB Relative Index 5.24H, Troponin I 0.95#H 12/13/18 05:40: White Blood Count 21.7H, Red Blood Count 5.60H, Hemoglobin 19.9H, Hematocrit 56.6H, Mean Corpuscular Volume 101.1H, Mean Corpuscular Hemoglobin 35.5H, Mean Corpuscular Hemoglobin Concent 35.2, Red Cell Distribution Width 13.0, Platelet Count 376, Neutrophils (%) (Auto) 85.9H, Lymphocytes (%) (Auto) 6.4L, Monocytes (%) (Auto) 7.0H, Eosinophils (%) (Auto) 0.0, Basophils (%) (Auto) 0.1, Neutrophils # (Auto) 18.7H, Lymphocytes # (Auto) 1.4L, Monocytes # (Auto) 1.5H, Eosinophils # (Auto) 0.0, Basophils # (Auto) 0.0, Immature Granulocyte % (Auto) 0.6, Nucleated Red Blood Cells % (auto) 0.0 12/13/18 06:59: Blood Urea Nitrogen 21H, Creatinine 1.34#H, Sodium Level 132L, Potassium Level 4.4, Chloride Level 102, Carbon Dioxide Level 16L, Calcium Level 8.8, Anion Gap 14, Glomerular Filtration Rate 43.1L, Fasting Glucose 243H, Lactic Acid Level 5.3*H 12/13/18 07:07: Blood Gas Bicarbonate Standard 19.3L, Arterial Blood pH 7.366, Arterial Blood Partial Pressure CO2 31.0L, Arterial Blood Partial Pressure O2 53.9L, Arterial Blood Total CO2 18.3L, Arterial Blood HCO3 17.4L, Arterial Blood Base Excess - 6.2L, Arterial Blood Oxygen Saturation 87.4L 12/13/18 10:04: Aspartate Amino Transf (AST/SGOT) 23, Alanine Aminotransferase (ALT/SGPT) 17, Alkaline Phosphatase 75, Total Bilirubin 0.5, Direct Bilirubin 0.1, Total Creatine Kinase 131, Creatine Kinase MB 11.6H, Creatine Kinase MB Relative Index 8.85H, Troponin I 0.55#H, Total Protein 5.7L, Albumin 2.7L, Albumin/Globulin Ratio 0.90L 12/13/18 11:27: Lactic Acid Followup at 4 Hours 6.9*H Current Medications Medications (Trade) Dose Ordered Sig/Kevin Route PRN Reason Start Time Stop Time Status Last Admin Dose Admin Acetaminophen/ Hydrocodone Bitart ([place], Anexsia 5/325) 1 tab Q6HP PRN PO PAIN 12/12/18 14:00 Future hold 12/12/18 15:19 1 TAB Atorvastatin Calcium (Lipitor) 80 mg DAILY PO 12/13/18 09:00 12/13/18 11:22 80 MG Ceftriaxone Sodium 2 gm/ Dextrose 50 ml @ 100 mls/hr Q24H IV 12/13/18 08:00 12/13/18 09:38 100 MLS/HR Clopidogrel Bisulfate (PLAVix) 75 mg DAILY PO 12/13/18 09:00 12/13/18 11:21 75 MG Levalbuterol HCl (Xopenex Neb) 0.63 mg Q6HP PRN INH SOB/WHEEZING 12/13/18 01:30 12/13/18 02:46 0.63 MG Lisinopril (Prinivil) 10 mg DAILY PO 12/13/18 09:00 12/13/18 11:22 10 MG Methylprednisolone (SOLU medrol) 40 mg Q8H IV 12/13/18 11:00 12/13/18 11:21 40 MG Metoprolol Tartrate (Lopressor) 25 mg Q6H PO 12/13/18 03:00 12/13/18 10:26 25 MG Ondansetron HCl (ZOFRAN INJection) 4 mg Q6HP PRN IV NAUSEA OR VOMITING 12/12/18 14:00 12/12/18 21:20 4 MG Pantoprazole Sodium (Protonix) 40 mg Q24H IV 12/12/18 21:00 12/13/18 00:42 40 MG Zolpidem Tartrate (Ambien) 5 mg QHSP PRN PO COUGH 12/12/18 18:15 12/12/18 18:24 5 MG Laboratory Tests 12/12/18 10:52 Red Blood Count 5.55 H, Mean Corpuscular Volume 98.4 H, Mean Corpuscular Hemoglobin 33.2 H, Mean Corpuscular Hemoglobin Concent 33.7, Red Cell Distribution Width 12.3, Neutrophils (%) (Auto) 64.5, Lymphocytes (%) (Auto) 28.3, Monocytes (%) (Auto) 5.6 H, Eosinophils (%) (Auto) 0.8, Basophils (%) (Auto) 0.5, Neutrophils # (Auto) 6.3, Lymphocytes # (Auto) 2.8, Monocytes # (Auto) 0.6, Eosinophils # (Auto) 0.1, Basophils # (Auto) 0.1, Calcium Level 8.1 L 12/13/18 05:40 Red Blood Count 5.60 H, Mean Corpuscular Volume 101.1 H, Mean Corpuscular Hemoglobin 35.5 H, Mean Corpuscular Hemoglobin Concent 35.2, Red Cell Distribution Width 13.0, Neutrophils (%) (Auto) 85.9 H, Lymphocytes (%) (Auto) 6.4 L, Monocytes (%) (Auto) 7.0 H, Eosinophils (%) (Auto) 0.0, Basophils (%) (Auto) 0.1, Neutrophils # (Auto) 18.7 H, Lymphocytes # (Auto) 1.4 L, Monocytes # (Auto) 1.5 H, Eosinophils # (Auto) 0.0, Basophils # (Auto) 0.0 12/13/18 06:59 Calcium Level 8.8 ASSESSMENT: Patient is a 58-year-old female with severe mesenteric arterial atherosclerotic occlusive disease as well as lower extremity atherosclerotic occlusive disease and claudication in the left lower extremity which is more severe than the right. The patient underwent angioplasty and stenting of her celiac and superior mesenteric arteries. The patient developed abdominal pain, nausea and vomiting post procedure which I believe is secondary to reperfusion of her viscera secondary to to her chronic intestinal ischemia. The patient also had a slight elevation in her troponin which is now returning to normal. Patient's medical management is being performed by the hospitalist who have recommended transferring her for further cardiac evaluation and possible cardiac cath. Patient was started on Plavix 300 mg yesterday and will continue on Plavix 75 mg daily. PLAN: Patient will continue on Plavix for her celiac and superior mesenteric artery stents. Patient will be transferred for further cardiac evaluation and treatment with possible cardiac catheterization with intervention. Patient will follow-up as an outpatient for continued management of her mesenteric ischemia as well as discussion of treatment for her left lower extremity claudication pending the results of her cardiac evaluation. The patient was counseled and recommendation was made to stop tobacco use and the patient states that she has Chantix at home and will attempt to stop tobacco use once she is discharged. Eric Mclean was the attending vascular surgeon for this patient encounter. The patient was seen, examined, interviewed and evaluated independently by Dr. Marjan Kilpatrick M.D. Dr. Marjan Kilpatrick M.D. was fully available during the consultation evaluation. All aspects of the patient interview, examination, medical decision making process, and medical care plan development were reviewed and approved by Dr. Marjan Kilpatrick M.D. Dr. Marjan Kilpatrick M.D. is aware and concurs with the plan as stated in the body of this note and will attest to such by his/her cosignature. VS, I&O, 24H, Fishbone Vital Signs/I&O Vital Signs Date Time Temp Pulse Resp B/P (MAP) Pulse Ox O2 Delivery O2 Flow Rate FiO2 12/13/18 09:09 96.6 104 34 134/96 (109) 94 4.0 I&O- Last 24 Hours up to 6 AM 12/13/18 06:00 Intake Total 980 ml Output Total 451 ml Balance 529 ml Laboratory Data 24H LABS Laboratory Tests 2 12/12/18 10:52: Immature Granulocyte % (Auto) 0.3, White Blood Count 9.7, Red Blood Count 5.55H, Hemoglobin 18.4H, Hematocrit 54.6H, Mean Corpuscular Volume 98.4H, Mean Corpuscular Hemoglobin 33.2H, Mean Corpuscular Hemoglobin Concent 33.7, Red Cell Distribution Width 12.3, Platelet Count 352, Neutrophils (%) (Auto) 64.5, Lymphocytes (%) (Auto) 28.3, Monocytes (%) (Auto) 5.6H, Eosinophils (%) (Auto) 0.8, Basophils (%) (Auto) 0.5, Neutrophils # (Auto) 6.3, Lymphocytes # (Auto) 2.8, Monocytes # (Auto) 0.6, Eosinophils # (Auto) 0.1, Basophils # (Auto) 0.1, Nucleated Red Blood Cells % (auto) 0.0, Prothrombin Time 13.9, Prothromb Time International Ratio 1.10, Activated Partial Thromboplast Time > 240.0*H, Anion Gap 8, Glomerular Filtration Rate > 60.0, Blood Urea Nitrogen 15, Creatinine 0.86, Sodium Level 134L, Potassium Level 4.1, Chloride Level 106, Carbon Dioxide Level 20L, Calcium Level 8.1L 12/12/18 21:03: Total Creatine Kinase 130, Creatine Kinase MB 10.4H, Creatine Kinase MB Relative Index 8.00H, Troponin I 1.60*H 12/13/18 02:47: Total Creatine Kinase 225H, Creatine Kinase MB 11.8H, Creatine Kinase MB Relative Index 5.24H, Troponin I 0.95#H 12/13/18 05:40: Immature Granulocyte % (Auto) 0.6, White Blood Count 21.7H, Red Blood Count 5.60H, Hemoglobin 19.9H, Hematocrit 56.6H, Mean Corpuscular Volume 101.1H, Mean Corpuscular Hemoglobin 35.5H, Mean Corpuscular Hemoglobin Concent 35.2, Red Cell Distribution Width 13.0, Platelet Count 376, Neutrophils (%) (Auto) 85.9H, Lymphocytes (%) (Auto) 6.4L, Monocytes (%) (Auto) 7.0H, Eosinophils (%) (Auto) 0.0, Basophils (%) (Auto) 0.1, Neutrophils # (Auto) 18.7H, Lymphocytes # (Auto) 1.4L, Monocytes # (Auto) 1.5H, Eosinophils # (Auto) 0.0, Basophils # (Auto) 0.0, Nucleated Red Blood Cells % (auto) 0.0 12/13/18 06:59: Anion Gap 14, Glomerular Filtration Rate 43.1L, Lactic Acid Level 5.3*H, Blood Urea Nitrogen 21H, Creatinine 1.34#H, Sodium Level 132L, Potassium Level 4.4, Chloride Level 102, Carbon Dioxide Level 16L, Calcium Level 8.8 12/13/18 07:07: Blood Gas Bicarbonate Standard 19.3L, Arterial Blood pH 7.366, Arterial Blood Partial Pressure CO2 31.0L, Arterial Blood Partial Pressure O2 53.9L, Arterial Blood Total CO2 18.3L, Arterial Blood HCO3 17.4L, Arterial Blood Base Excess - 6.2L, Arterial Blood Oxygen Saturation 87.4L CBC/BMP Laboratory Tests 12/12/18 10:52 Red Blood Count 5.55 H, Mean Corpuscular Volume 98.4 H, Mean Corpuscular Hem oglobin 33.2 H, Mean Corpuscular Hemoglobin Concent 33.7, Red Cell Distribution Width 12.3, Neutrophils (%) (Auto) 64.5, Lymphocytes (%) (Auto) 28.3, Monocytes (%) (Auto) 5.6 H, Eosinophils (%) (Auto) 0.8, Basophils (%) (Auto) 0.5, Neutrophils # (Auto) 6.3, Lymphocytes # (Auto) 2.8, Monocytes # (Auto) 0.6, Eosinophils # (Auto) 0.1, Basophils # (Auto) 0.1, Calcium Level 8.1 L 12/13/18 05:40 Red Blood Count 5.60 H, Mean Corpuscular Volume 101.1 H, Mean Corpuscular Hemoglobin 35.5 H, Mean Corpuscular Hemoglobin Concent 35.2, Red Cell Distribution Width 13.0, Neutrophils (%) (Auto) 85.9 H, Lymphocytes (%) (Auto) 6.4 L, Monocytes (%) (Auto) 7.0 H, Eosinophils (%) (Auto) 0.0, Basophils (%) (Auto) 0.1, Neutrophils # (Auto) 18.7 H, Lymphocytes # (Auto) 1.4 L, Monocytes # (Auto) 1.5 H, Eosinophils # (Auto) 0.0, Basophils # (Auto) 0.0 12/13/18 06:59 Calcium Level 8.8 Microbiology Microbiology 12/13/18 Blood Culture, Received Pending Wandy Escalona Dec 13, 2018 10:38 Vasyl Kilpatrick MD Dec 13, 2018 12:42
[2018-12-13] MEDS ORDERED: NS 1,000 ML IV SCH (10:44)
[2018-12-13] MEDS ORDERED: NITROGLYCERIN 0.4 MG SUBL TABLET SL PRN (10:45)
[2018-12-13] MEDS ORDERED: methylPREDNISolone INJ 40 MG/1 ML VIAL (J2920) IV SCH (11:00)
[2018-12-13 11:02] LABS: CK-MB VALUE MASS 11.6 NG/ML (<3.6); MB/CK RELATIVE INDEX 8.85 (< OR =4); TROPONIN I 0.55 NG/ML (< 0.10)
[2018-12-13] MEDS ORDERED: IPRATROPIUM 0.5MG/ALBUTEROL 2.5MG INH SOL UD 3ML (DUONEB)(J7620) NEB PRN (11:15)
[2018-12-13 11:23] LABS: ALBUMIN 2.7 GM/DL (3.2-5.2); BILIRUBIN,DIRECT 0.1 MG/DL (0.0-0.2); BILIRUBIN,TOTAL 0.5 MG/DL (0.2-1.0); TOTAL PROTEIN 5.7 GM/DL (6.4-8.2)
[2018-12-13] MEDS ORDERED: FUROSEMIDE 40 MG/4 ML VIAL (J1940) As Ordered ONE (11:53)
[2018-12-13] MEDS ORDERED: FUROSEMIDE 40 MG/4 ML VIAL (J1940) IV ONE (12:00)
--- NOTE | 2018-12-13 12:14 | ROOPDOC ---
[facility] Report Of Operation Report of Operation DATE OF PROCEDURE: 12/12/2018 PREOPERATIVE DIAGNOSES: Abdominal pain, nausea, vomiting, mesenteric artery stenosis, left lower extremity claudication, atherosclerotic arterial occlusive disease, chronic renal insufficiency, history of tobacco use with smoking of cigarettes with patient continuing to smoke currently, COPD. POSTOPERATIVE DIAGNOSES: Abdominal pain, nausea, vomiting, mesenteric artery stenosis, left lower extremity claudication, atherosclerotic arterial occlusive disease, chronic renal insufficiency, history of tobacco use with smoking of cigarettes with patient continuing to smoke currently, COPD. PROCEDURE: Left brachial artery exposure Abdominal Aortogram Selective celiac artery catheter placement with angiogram Celiac artery angioplasty and stent with a 7 x 15 express SD stent Selective superior mesenteric artery catheter placement with angiogram Superior mesenteric artery angioplasty and stent with a 7 x 19 express SD stent Closure of the left brachial artery arteriotomy SURGEON: Dr. Dino Kilpatrick M.D. MATERIAL MANAGER: Nanda Rios INDICATION: The patient is a 58-year-old female who was initially referred for left lower extremity claudication and during the evaluation the patient was found to also have abdominal pain and chronic nausea and vomiting which has been present for approximate 2 years. The patient has been evaluated by the dialysis biomed technician. 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 The patient was also found to have atherosclerotic arterial occlusive disease in her left lower extremity. The patient has a long history and current tobacco use with smoking of cigarettes. The procedure was explained and described to the patient's family in detail including drawing of pictures demonstrating the procedure and the pertinent anatomy. Risks, benefits and alternative treatment options were discussed with the patient's family. Alternative treatment options included but were not limited to no intervention. Benefits include but were not limited to evaluation of arterial inflow to the intra-abdominal organs, small bowel and large bowel with possible intervention to treat the gastrointestinal hemorrhage. Risks included but were not limited to infection, bleeding, renal failure requiring hemodialysis, retroperitoneal hematoma, possible need for surgical intervention, allergic and/or adverse reaction from the prepping and draping materials, allergic and/or adverse reaction to the IV sedation and local anesthetic, sedation related complication, possible requirement for transfusion of blood products, scarring of the skin, bruising, nerve injury, anesthetic complications, cerebrovascular accident, myocardial infarction, pulmonary embolus, deep venous thrombosis, poor satisfaction, poor outcome, poor results, loss of limb and loss of life. Patient's family's questions were answered. Patient's family voices understanding of these risks, benefits and alternative treatment options. Patient's family voices acceptance of the risks associated with angiogram to evaluate for gastrointestinal bleeding with possible intervention and consents to proceed with the procedure accepting the associated risks of the procedure. There were no promises or guarantees made to the patient regarding the outcome and/or results of the procedure ANESTHESIA: Local with sedation with 2 mg of Versed, 100 g of fentanyl, 50 mg of Benadryl and 20 mL of 2% lidocaine mixed with 0.5% Marcaine. SEDATION TIME: 8:25 AM to 9:53 AM for a total of 88 minutes of monitored sedation. The sedation was administered by the registered nurse monitoring the procedure. The cardiopulmonary monitoring during sedation was performed by the registered nurse monitoring the procedure. Administration of sedation and cardiopulmonary monitoring were performed under my direct supervision and direction. I was present for and directed the entire case. There were no sedation related complications. Patient was stable post sedation and returned to pre-sedation status. FLUORO TIME: 5.1 minutes CONTRAST: 18 mL of Isovue 300 IVF: 100 mL ESTIMATED BLOOD LOSS: 10 mL. HEPARIN: 7000 units PROTAMINE: None COMPLICATIONS: None. DRAINS: None SPECIMENS: None IMPLANTS: Celiac artery angioplasty and stent with and an express SD 7 mm x 15 mm stent. Superior mesenteric artery angioplasty and stent with an express SD 7 1 x 19 mm stent. DESCRIPTION OF PROCEDURE: The patient was taken to the angiography suite and placed supine on the angiography room table and then prepped and draped in a standard surgical fashion. A time-out was conducted by myself and the team members in the room confirming the correct procedure, patient and laterality. The left brachial artery was exposed to a transverse incision in the left antecubital fossa after anesthetizing the overlying skin with 2% lidocaine mixed with 0.5% Marcaine. The brachial artery was sharply dissected proximally and distally and then encircled with vessel loops. The micropuncture needle was then used to cannulate the left brachial artery. A micropuncture wire was then advanced through the micropuncture needle which was used to up-size to a micropuncture sheath. The Gordon wire was then advanced through the micropuncture sheath which was up-sized to a 5 Egyptian sheath. The Omni flush catheter was used to direct the Gordon wire through the aortic arch into the descending thoracic aorta and the infrarenal abdominal aorta. The marking pigt ail catheter was placed in the aorta at the level of the diaphragm and aortogram was performed showing stenosis in the celiac artery which is high-grade and at the origin which was approximately 95-99%. There was stenosis in the superior mesenteric artery shortly after the origin which was approximately 60-70%. The 5 Egyptian sheath was then exchanged for a long 6 Egyptian sheath which was placed with the tip in the abdominal aorta just below the diaphragm. The patient was given systemic heparin for anticoagulation. The celiac artery was then selectively cannulated and an angiogram performed showing catheter to be intraluminal after crossing the high-grade stenosis in the celiac artery. This celiac artery was then angioplastied and stented with a 7 mm x 15 mm express SD stent. The completion celiac artery angiogram showed the celiac artery to be widely patent distal to the stented region with the stent in good position and no residual stenosis remaining. The superior mesenteric artery was then selectively cannulated and an angiogram performed showing the catheter to be intraluminal after crossing the lesion in the spare mesenteric artery. The superior mesenteric artery was then angioplastied and stented with a 7 mm x 19 mm express SD stent. The completion superior mesenteric artery angiogram showed the stent to be in good position and good alignment with good filling of the superior mesenteric artery distal to the stent and no residual stenosis remaining. A completion aortogram was performed and this showed the celiac and superior mesenteric arteries to be in good position and good alignment and widely patent with no residual stenosis remaining. The sheath was then removed and the arteriotomy in the left brachial artery was closed with 6-0 Prolene sutures in interrupted fashion. Once hemostasis was obtained the wound was closed using 3-0 Monocryl to approximate the skin in a running subcuticular fashion. Steri-Strips and dressings were then applied. The patient tolerated the procedure well. All instrument, sponge and needle counts were correct at the end of the case. There were no complications. Dr. Kilpatrick was present for and directed the entire case. The patient was transferred to the recovery area and subsequently to the floor in stable condition. RADIOLOGIC SUPERVISION INTERPRETATION: Aortogram: The aortogram formed and lateral projection showed stenosis in the celiac artery which is approximate 95-99% as well as stenosis in the spare mesenteric artery which was approximate 60-70%. The distal superior mesenteric artery appeared small and had atherosclerotic arterial occlusive disease with no obvious stenosis or occlusion distally the splenic, left gastric and hepatic arteries were patent. There was atherosclerotic plaquing along the course of th e abdominal aorta. Selective celiac artery angiogram: The celiac artery was selectively cannulated and after an angiogram confirmed intraluminal positioning, the celiac artery underwent angioplasty and stenting with a 7 mm x 15 mm express SD stent. Comp letion celiac artery angiogram showed the stent to be widely patent with no residual stenosis remaining. Selective superior mesenteric artery angiogram: The superior mesenteric artery was selected cannulated and after an angiogram confirmed intraluminal p ositioning, the spare mesenteric artery underwent angioplasty and stenting with a 7 mm x 19 mm express SD stent. Completion superior mesenteric artery angiography showed resolution of the stenosis with the stent in good position and no residual stenosis remaining. A completion aortogram was performed showing both the superior mesenteric and celiac artery stents to be widely patent with good filling of the vessels distal to the stent. CONCLUSION: The patient underwent successful angioplasty and stenting of her superior mesenteric and celiac arteries. The patient had significant abdominal pain after the procedure and a noncontrast CT was performed showing no evidence of hematoma around the celiac artery, spare mesenteric artery or aorta at this level. PLAN: Patient will be started on Plavix with 300 mg loading dose followed by 75 mg daily. The patient will be admitted and monitored for observation overnight due to her abdominal pain which I believe is secondary to reperfusion after undergoing celiac artery and superior mesenteric artery stenting. The patient will require left lower extremity angiogram for her claudication and atherosclerotic arterial occlusive disease in her lower extremities and this will be performed at a later time. Vasyl Kilpatrick MD Dec 13, 2018 12:13
--- NOTE | 2018-12-13 12:18 | REP ---
Portable chest, 11:54 a.m., single AP view with the patient sitting: Comparisons are 12/13/2018 at 03:22 a.m. and 12/26/2016. There is diffuse bilateral interstitial coarsening, similar to the study of 03:22 a.m. earlier today. This was not present on 12/26/2016. There are no pleural effusions. The finding could be acute, subacute, chronic, or combination. Cardiac size is normal. The raquel, mediastinum, skeletal structures are unremarkable. Impression: Diffuse interstitial coarsening as described. Electronically Signed by Ba Hargrove MD 12/13/2018 12:09 P
--- NOTE | 2018-12-13 13:37 | IPNPDOC ---
Subjective Date Seen The patient was seen on 12/13/18. Subjective Chief Complaint/HPI Patient is a 58 year old female who was seen this morning with hypotension and tachycardia. She is s/p SMA and celiac angioplasty post op day [address] Kilpatrick. This morning her only complaint was nausea which she states has been persistent for the past few months and mild abdominal pain. She denied any chest pain, palpitations, SOB, headaches, arm or jaw pain. She denies chills but states she often feels cold. Constitutional: Denies: Chills, Fever, Night Sweats ENT: Denies: Head Aches Skin: Denies: Rash Pulmonary: Denies: Dyspnea, Cough Cardiovascular: Denies: Chest Pain, Palpitations, Orthopnea, Lt Headedness Gastrointestinal: Reports: Nausea, Abdominal Pain; Denies: Vomiting, Diarrhea, Constipation Genitourinary: Denies: Dysuria, Frequency Musculoskeletal: Denies: Arm Pain, Joint Pain, Muscle Pain Neurological: Denies: Weakness, Numbness, Confusion Psych: Reports: Mood Normal Objective Physical Examination General Exam: Positive: Alert, Cooperative, No Acute Distress Eye Exam: Positive: PERRLA, Conjunctiva & lids normal, EOMI; Negative: Sclera icteric ENT Exam: Positive: Atraumatic, Mucous membr. moist/pink, Pharynx Normal Neck Exam: Positive: Supple; Negative: JVD Chest Exam: Positive: Rhonchi (on expiration), Wheezing (on deep expiration), Diminished Heart Exam: Positive: Rate Normal, Regular Rhythm, Normal S1, Normal S2; Negative: Murmurs, Rubs Abdomen Exam: Positive: Normal bowel sounds, Soft, Tenderness (in the epigastrium and left upper quadrant. ) Extremity Exam: Positive: Normal pulses; Negative: Clubbing, Cyanosis, Edema Skin Exam: Positive: Nl turgor and temperature Neuro Exam: Positive: Normal Speech, Strength at 5/5 X4 ext, Cranial Nerves 3- 12 NL Psych Exam: Positive: Mental status NL, Mood NL, Oriented x 3 Assessment /Plan Assessment 58 F who presented with nausea, hypotension, tachycardia, elevated troponins, and EKG changes Plan/VTE VTE Prophylaxis Ordered?: Yes Plan 1. NSTEMI Pt presented with nausea, diaphoresis, and hypotension. Troponins peaked at 1.60 and have been downtrending. EKG showed T wave inversions in leads I, aVL, and V3-V6 which are new compared to her last EKG in May 2016. Lactic acid also elevated to 5.3. She was given oxygen, aspirin, giancarlo inhibitor, statin. Morphine and nitroglycerin as needed for chest pain/angina. She is on plavix since her procedure last night and she has been on metoprolol. Plan is for transfer to [facility] in [place] for further cardiology work up and management, such as cardiac catheterization. 2. SOB She was given 1L fluid bolus and subsequently developed shortness of breath with crackles on lung exam. O2 saturation dropped at that point into the 80s and she was placed on venti mask 15 liters with FiO2 of 40. Portable CXR revealed increased interstitial congestion. She was diuresed with lasix and had clinical improvement of her SOB. 3. Chronic abdominal pain s/p celiac and SMA stent placement on 12/12/[address] Kilpatrick. On Plavix. Disposition Transfer to [facility] in [place] VS, I&O, 24H, Fishbone Vital Signs/I&O Vital Signs Date Time Temp Pulse Resp B/P (MAP) Pulse Ox O2 Delivery O2 Flow Rate FiO2 12/13/18 12:00 15.0 40 12/13/18 12:00 97.0 98 34 152/101 (118) 92 I&O- Last 24 Hours up to 6 AM 12/13/18 06:00 Intake Total 980 ml Output Total 451 ml Balance 529 ml Laboratory Data 24H LABS Laboratory Tests 2 12/12/18 21:03: Total Creatine Kinase 130, Creatine Kinase MB 10.4H, Creatine Kinase MB Relative Index 8.00H, Troponin I 1.60*H 12/13/18 02:47: Total Creatine Kinase 225H, Creatine Kinase MB 11.8H, Creatine Kinase MB Relative Index 5.24H, Troponin I 0.95#H 12/13/18 05:40: Immature Granulocyte % (Auto) 0.6, White Blood Count 21.7H, Red Blood Count 5.60H, Hemoglobin 19.9H, Hematocrit 56.6H, Mean Corpuscular Volume 101.1H, Mean Corpuscular Hemoglobin 35.5H, Mean Corpuscular Hemoglobin Concent 35.2, Red Cell Distribution Width 13.0, Platelet Count 376, Neutrophils (%) (Auto) 85.9H, Lymphocytes (%) (Auto) 6.4L, Monocytes (%) (Auto) 7.0H, Eosinophils (%) (Auto) 0.0, Basophils (%) (Auto) 0.1, Neutrophils # (Auto) 18.7H, Lymphocytes # (Auto) 1.4L, Monocytes # (Auto) 1.5H, Eosinophils # (Auto) 0.0, Basophils # (Auto) 0.0, Nucleated Red Blood Cells % (auto) 0.0 12/13/18 06:59: Anion Gap 14, Glomerular Filtration Rate 43.1L, Lactic Acid Level 5.3*H, Blood Urea Nitrogen 21H, Creatinine 1.34#H, Sodium Level 132L, Potassium Level 4.4, Chloride Level 102, Carbon Dioxide Level 16L, Calcium Level 8.8 12/13/18 07:07: Blood Gas Bicarbonate Standard 19.3L, Arterial Blood pH 7.366, Arterial Blood Partial Pressure CO2 31.0L, Arterial Blood Partial Pressure O2 53.9L, Arterial Blood Total CO2 18.3L, Arterial Blood HCO3 17.4L, Arterial Blood Base Excess - 6.2L, Arterial Blood Oxygen Saturation 87.4L 12/13/18 10:04: Aspartate Amino Transf (AST/SGOT) 23, Alanine Aminotransferase (ALT/SGPT) 17, Alkaline Phosphatase 75, Total Bilirubin 0.5, Direct Bilirubin 0.1, Total Creatine Kinase 131, Creatine Kinase MB 11.6H, Creatine Kinase MB Relative Index 8.85H, Troponin I 0.55#H, Total Protein 5.7L, Albumin 2.7L, Albumin/Globulin Ratio 0.90L 12/13/18 11:27: Lactic Acid Followup at 4 Hours 6.9*H CBC/BMP Laboratory Tests 12/13/18 05:40 Red Blood Count 5.60 H, Mean Corpuscular Volume 101.1 H, Mean Corpuscular Hemoglobin 35.5 H, Mean Corpuscular Hemoglobin Concent 35.2, Red Cell Distribution Width 13.0, Neutrophils (%) (Auto) 85.9 H, Lymphocytes (%) (Auto) 6.4 L, Monocytes (%) (Auto) 7.0 H, Eosinophils (%) (Auto) 0.0, Basophils (%) (Auto) 0.1, Neutrophils # (Auto) 18.7 H, Lymphocytes # (Auto) 1.4 L, Monocytes # (Auto) 1.5 H, Eosinophils # (Auto) 0.0, Basophils # (Auto) 0.0 12/13/18 06:59 Calcium Level 8.8 Microbiology Microbiology 12/13/18 Blood Culture, Received Pending 12/13/18 Blood Culture, Received Pending GME ATTESTATION GME ATTESTATION My faculty preceptor for this patient encounter was physically present during the encounter and was fully available. All aspects of the patient interview, examination, medical decision making process, and medical care plan development were reviewed and approved by the faculty preceptor. The faculty preceptor is aware and concurs with the plan as stated in the body of this note and will attest to such by his/her cosignature. ATTENDING NOTE I, Galileo Hoyt, have independently examined this patient and performed my own physical exam, as well as reviewed the documentation and edited where necessary. I have discussed in detail with the resident / student the findings and plan of treatment as documented by the resident / student and edited their note. I agree with their findings and treatment plan and have edited their documentation. I will continue to follow the patient during this hospital stay. LUANN HERRERA PGY-1 Dec 13, 2018 13:37 GALILEO HOYT MD Dec 14, 2018 07:57
[2018-12-13] MEDS ORDERED: AZITHROMYCIN 250 MG TAB PO SCH (21:00)
[2018-12-14] MEDS ORDERED: ASPIRIN 81 MG ENTERIC TAB PO SCH (09:00)
== END 2018-12-13 13:04 | disposition short-term general hospital (02) | DRG 182 ==
LOC: M IRPRO 06:53 → M MSPAV 13:48 → M PCU 12-13 05:00 → M ICU 12-13 08:41
PROVIDERS: ADMIT Surgery Vascular Surgery; ATTEND Surgery Vascular Surgery
PROC: 04713DZ Dilation of Celiac Artery with Intraluminal Device, Percutaneous Approach (ICD-10-PCS; 2018-12-12)
PROC: 04753DZ Dilation of Superior Mesenteric Artery with Intraluminal Device, Percutaneous Approach (ICD-10-PCS; 2018-12-12)
PROC: B41J1ZZ Fluoroscopy of Other Lower Arteries using Low Osmolar Contrast (ICD-10-PCS; 2018-12-12)
PROC: B4141ZZ Fluoroscopy of Superior Mesenteric Artery using Low Osmolar Contrast (ICD-10-PCS; 2018-12-12)
PROC: B4101ZZ Fluoroscopy of Abdominal Aorta using Low Osmolar Contrast (ICD-10-PCS; principal; 2018-12-12 07:30)
DX: I21.4 Non-ST elevation (NSTEMI) myocardial infarction (principal); K55.1 Chronic vascular disorders of intestine; E46 Unspecified protein-calorie malnutrition; J44.1 Chronic obstructive pulmonary disease with (acute) exacerbation; I16.0 Hypertensive urgency; F17.210 Nicotine dependence, cigarettes, uncomplicated; G89.18 Other acute postprocedural pain; I70.212 Atherosclerosis of native arteries of extremities with intermittent claudication, left leg; I10 Essential (primary) hypertension; Z79.899 Other long term (current) drug therapy; Z90.49 Acquired absence of other specified parts of digestive tract; Z68.1 Body mass index [BMI] 19.9 or less, adult

== ENCOUNTER 2018-12-29 10:51 | Inpatient (IN) | payer OTHER ==
[~2018-12-29] VITALS: Ht 162.6 cm; Wt 48.2 kg
[2018-12-29 11:45] VITALS: BP 110/75
[2018-12-29] MEDS ORDERED: NITROGLYCERIN 0.3 MG SUBL TAB SL PRN (12:15)
[2018-12-29] MEDS ORDERED: oxyCODONE 5MG TAB PO PRN (12:15)
[2018-12-29] MEDS ORDERED: ACETAMINOPHEN TAB 650MG DOSE (2X325MG) PO PRN (12:15)
[2018-12-29] MEDS ORDERED: POTA1TAB14 PO ×2 (13:01→13:04)
[2018-12-29] MEDS ORDERED: OXYC1TAB23 PO (13:01)
[2018-12-29] MEDS ORDERED: DULC10SU2 PR (13:01)
[2018-12-29] MEDS ORDERED: ATOR80TA59 PO (13:01)
[2018-12-29] MEDS ORDERED: MIRA3350 PO (13:01)
[2018-12-29] MEDS ORDERED: ELIQ5TAB PO (13:01)
[2018-12-29] MEDS ORDERED: LORA1TAB12 PO (13:01)
[2018-12-29] MEDS ORDERED: METO50TA7 PO (13:08)
[2018-12-29] MEDS ORDERED: ASPI81TA85 PO (13:08)
[2018-12-29] MEDS ORDERED: PATIENT COMMENTS (13:10)
--- NOTE | 2018-12-29 13:18 | CR.PDOC ---
General Date of Consultation: Dec 29, 2018 Referring Provider: ALONZO GURROLA MD Primary Care Physician: A Attending Physician: ABDI MICHELLE MD Consultation REASON FOR CONSULTATION/CHIEF COMPLAINT: Medical management HISTORY OF PRESENT ILLNESS: Patient is a 58-year-old female, past medical history significant for peripheral arterial disease, SMA stenosis, hypertension, COPD, admitted to inpatient rehabilitation unit. S/P left BKA. Patient initially presented to this facility 12 of December on account of a bdominal and left leg pain, with plan for elective angioplasty. Post procedure, she complained of shortness of breath, tachycardia, and was found to have elevated troponins. Due to concern for acute myocardial infarction. She was emergently transferred to [facility] for emergent cath. Left heart catheterization completed 12/13/2018 was negative for obstructive coronary artery disease and did reveal cardiomyopathy with Ejection fraction of 25%. There were also findings of left ventricular thrombus with cold lower extremities. CT was completed and showed aortic and distal bilateral lower extremity occlusions. Repeat 2-D echocardiogram 12/17/2018 showed hyperdynamic cardiac function with left ventricular function of greater than 65%. Patient was again taken emergently to the operating room for bilateral femoral cutdowns aortic iliac SFA DFA distal embolectomy. Post surgical intervention. She was admitted, intubated to ICU. Perfusion to left lower extremity did not improve and she was taken back to the emergency room and had left [id number] amputation. She also had right calf fasciotomy. Patient was started on heparin drip for limb ischemia and arterial thrombus. She was subsequently transitioned to oral anticoagulation with Eliquis 10 mg twice a day. Post stabilization she was transferred back to this facility for rehabilitation. On assessment, she denies chest pain, shortness of breath, weakness, chills, abdominal pain or discomfort. ALLERGIES: Please see below. HOME MEDICATIONS: Please see below. PAST MEDICAL HISTORY: Peripheral arterial disease COPD Hypertension Nicotine dependence Nonischemic cardiomyopathy, EF 25% Aortic thromboembolism Left ventricular Thrombus Non-ST elevation myocardial infarction PAST SURGICAL HISTORY: Left [id number] amputation. Tonsillectomy Appendectomy Hysterectomy D&C Aortic iliac SFA DFA, distal embolectomy Bilateral lower extremity 4 compartment fasciotomy FAMILY HISTORY: Father: CVA, hypertension Mother: Ovarian cancer SOCIAL HISTORY: Tobacco use: One pack per day ETOH: Occasional Illicit drug use: Denies REVIEW OF SYSTEMS: A pertinent 10 point review of systems is completed, negative except as stated in the history of presenting illness PHYSICAL EXAMINATION: GENERAL: NAD SKIN : Warm. Right leg lateral and medial fasciotomy without odor or drainage. Left AKA tim and sutures intact HEENT: Atraumatic, normocephalic, PERRL, moist mucous membrane CARDIOVASCULAR: Regular rate and rhythm, S1S2, no JVD, no edema to right lower extremity,right distal pulses is palpable RESP: CTAB, no accessory muscle use noted ABDOMEN: BS+ non distended non tender MS: left AKA NEURO: Alert and oriented x 3, CN2-12 grossly intact PSYCH: no anxiety or agitation, appropriate mood and affect. LABORATORY DATA: Please see below. ASSESSMENT/PLAN: Peripheral Arterial Disease -with thrombus leading to critical limb ischemia -S/P Left AKA -continue aspirin, atorvastatin, apixaban -Rehabilitation for new musculoskeletal deficit by primary team LV Thrombus -Apixaban twice a day -Repeat 2-D echocardiogram showing preserved ejection fraction greater than 65% Hypertension -Continue metoprolol Nicotine dependence -Plans to quit -Counseling provided COPD -No acute exacerbation currently -Stable Right leg fasciotomy -Wound care per wound team -Pain control as needed DVT prophylaxis -Fully anticoagulated on apixaban Vital Signs/I&O Vital Signs Date Time Temp Pulse Resp B/P (MAP) Pulse Ox O2 Delivery O2 Flow Rate FiO2 12/29/18 11:45 98.5 100 16 110/75 (87) 97 Allergies Coded Allergies: No Known Allergies (Unverified , 11/24/18) Home Medications Scheduled Apixaban (Eliquis) 5 Mg Tablet, 10 MG PO BID, (Reported) STARTED AT PREVIOUS FACILITY 12/29/2018. STATED FOR 4 DAYS TO END 01/02/2019 Aspirin (Aspir 81) 81 Mg Tablet.dr, 81 MG PO DAILY, (Reported) STARTED AT PREVIOUS FACILITY Atorvastatin Calcium (Atorvastatin Calcium) 80 Mg Tablet, 80 MG PO DAILY, (Reported) STARTED AT PREVIOUS FACILITY Ergocalciferol (Vitamin D2) (Vitamin D2) 50,000 Unit Capsule, 50,000 UNIT PO QWEEK, (Reported) tuesday Magnesium Oxide (Magnesium) 500 Mg Capsule, 500 MG PO DAILY, (Reported) Metoprolol Tartrate (Metoprolol Tartrate) 50 Mg Tablet, 50 MG PO BID, (Reported) STARTED AT PREVIOUS FACILITY Potassium Chloride (Potassium Chloride) 20 Meq Tablet.er, 20 MEQ PO DAILY, (Reported) STARTED AT PREVIOUS FACILITY Scheduled PRN Bisacodyl (Dulcolax) 10 Mg Supp.rect, 10 MG NC DAILY PRN for CONSTIPATION, (Repo rted) STARTED AT PREVIOUS FACILITY Lorazepam (Lorazepam) 1 Mg Tablet, 1 MG PO TID PRN for ANXIETY, (Reported) STARTED AT PREVIOUS FACILITY Naproxen (Naproxen) 500 Mg Tablet, 500 MG PO Q6H PRN for PAIN, (Reported) Oxycodone HCl/Acetaminophen (Oxycodone-Acetaminophen 5-325) 1 Each Tablet, 1-2 TAB PO Q4H PRN for PAIN, (Reported) STARTED AT PREVIOUS FACILITY. Polyethylene Glycol 3350 (Miralax) 119 Gm Powder, 17 GM PO DAILY PRN for CONSTIPATION, (Reported) STARTED AT PREVIOUS FACILITY Miscellaneous Medications [Patient Comments] , (Reported) PATIENT STATES SHE WAS NOT TAKING ANY PRESCRIPTION MEDICATIONS AT HOME. SHE HAD AN RX FOR CHANTIX BUT HAD NOT STARTED IT YET. RAJESH TAVARES Dec 29, 2018 13:18
--- NOTE | 2018-12-29 13:21 | HPEPDOC ---
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 Kilpatrick at [facility] and transferred to [facility] on 12/13/18 for NSTEMI and admitted for cardiac catheterization. She was found to have Takotsubo cardiomyopathy and no CAD, acute systolic CHF, with an EF of 25%. She developed bilateral cold lower limbs and post-cath ECHO on 12/14/18 revealed a left ventricular thrombus. She was started on IV heparin, had bilateral femoral cutdowns with [id number] embolectomies with bilateral 4 compartment fasciotomies performed by Dr. Baez. Follow-up CTA on 12/16/18 showed, "Occlusion of the infrarenal aorta. reconstitution of diminutive iliac arteries and common femoral arteries. Limited opacification of the superficial femoral arteries left more so than right with non-opacification of the popliteal arteries and vessels below the knee. Areas of decreased perfusion, cortical right kidney...lesser degrees within the left kidney...likely embolic" Repeat TTE on 12/17/18 showed "hyperdynamic (>65%) left v entricular function." Her left limb was deemed unsalvageable and she underwent an AKA on 12/22/18. She was transitioned from heparin drip to po Eliquis, evaluated by therapy and found to well below her prior level of function with regard to mobility and ADL management. She was deemed medically appropriate for discharge to ARU on 12/29/18 for IRF level of care. REVIEW OF SYSTEMS: The following is a completed review of systems and has been reviewed. Review of systems otherwise unremarkable. PAIN: Patient self reports right calf pain EYES: No recent vision changes EARS, NOSE, & THROAT: No throat pain, or dysphagia, or rhinorrhea CARDIOVASCULAR: Denies chest pain or palpitations PULMONARY: Denies shortness of breath GASTROINTESTINAL: Denies constipation/diarrhea GENITOURINARY: denies dysuria MUSCULOSKELETAL: left aka and right fasciotomies NEUROLOGICAL:no tremor or seizure activity HEMATOLOGICAL: +PAD SKIN: left aka incision and right calf fasciotomies PSYCHIATRIC: Unremarkable All other review of systems found to be negative. PAST MEDICAL HISTORY: as per hpi PAST SURGICAL HISTORY: 12/12/18 Left brachial artery exposure, Abdominal Aortogram, Selective celiac artery catheter placement with angiogram, Celiac artery angioplasty and stent with a 7 x 15 express SD stent Selective superior mesenteric artery catheter placement with angiogram, Superior mesenteric artery angioplasty and stent with a 7 x 19 express SD stent, Closure of the left brachial artery arteriotomy ALLERGIES: Please see below. MEDICATIONS: Please see below. SOCIAL HISTORY: currently without housing, daily smoker, no ETOH, or illicit drugs, not working DIET: low sodium PHYSICAL EXAMINATION: VITAL SIGNS: Please see below. GENERAL: Pleasant and cooperative. No acute distress. HEENT: PERRL. Extraocular movements intact. Clear conjunctiva CARDIOVASCULAR: Regular rate and rhythm. No murmurs, rubs, or gallops LUNGS: Clear to auscultation bilaterally. No wheezes. No rhonchi ABDOMEN: Soft, nontender, nondistended. Positive bowel sounds. Normal active eden wel sounds NEUROLOGICAL: Alert and oriented times three. Cranial nerves II through XII grossly intact. Sensation grossly intact EXTREMITIES: 5\\5 strength bilateral upper extremities. 5-\\5 strength right hip flexion, knee extension, 3/5 ankle DF and EHL, 5-/5 strength in left hip flexion extremity SKIN: left residual limb c/d/i without erythema or induration right calf fasciotomies c/d/i with healthy appearing muscle tissue bilateral groin incisions, scant drainage on the left LABORATORY DATA: Please see below. IMAGING:Imaging documentation personally reviewed by record FUNCTIONAL STATUS: Premorbid: Independent with all activities of daily life as well as mobility On Admission: Mod-assist with bed mobility and functional transfers, Max assist for sit-to stand GOALS: Mod-I wheelchair level for mobility, dressing, toileting, grooming, medical optimization ASSESSMENT: 58-year-old F with past medical history of COPD who presents status post AKA and right LE fasciotomy. PLAN: 1. Rehab: PT-strengthen /maintain ROM/stretch bilat LE- prevent left hip flexion and abduction contracture OT- strengthen /maintain ROM/stretch bilat UE 2. Neuro: stable, avoid delirogenic meds 3. Cardiac: s/p recent NSTEMI with cath positive for takotsubo [place], EF 65% -LV thrombus with emboli in the aorta, iliac, and bilateral LE s/p embolectomies with right lower leg fasciotomy and left AKA, c/u ASA and Eliquis -has f/u with Dr. Forrest 01/10/19 1:30 pm -will need outpatient hypercoagulation work-up -HTN, c/u betablocker, medicine consulted to assist in management -HLD, c/u statin 4. Resp: pmh COPD, current smoker, will order Duonebs prn, smoking cessation education 5. Pain: oxycodone, gabapentin and tylenol 6. Renal: recent angiogram suspicious for renal emboli, will monitor kidney function and consult renal prn 7. GI ppx: protonix 8. DVT ppx: Eliquis 9. SKin: wound vac to be changed [id number], will monitor CRP and ESR 9. Dispo: TBD POST ADMISSION PHYSICIAN EVALUATION: Medical and functional status: Description of medical status, medical assessment: As above. Rehabilitation diagnosis and current and prior cold morbid medical conditions as above. Risk of complications and plans to mitigate them as above. Description of functional status current status is as above. Prior status as above. Status compared to preadmission: There are no clinically significant differences between the patient's current status and the information described on the preadmission screening document. Treatment plan anticipated: Treatment plan is as described above. Required disciplines including physical therapy, occupational therapy, others as noted above. Intensity of services: 3 hours a day, 6 days a week. Special considerations: There are no specific special or safety considerations that would likely preclude immediate implementation of an intensive rehabilitation program or subsequently influence the plan of care ATTESTATION: Considering all the information above, it is my best judgment that this patient requires intensive rehabilitation therapy as described above and an inpatient hospital environment due to the complexity of nursing, medical, and rehabilitation needs required by the patient. Furthermore, this patient can reasonably be expected to participate in an benefit from an inpatient rehabilitation stay with an interdisciplinary team approach to the delivery of rehabilitation care under the direction and supervision of rehabilitation physician PROGNOSIS:good ESTIMATED LENGTH OF STAY:21-24 days. PROJECTED DISCHARGE DESTINATION: Home with family support and any durable medical equipment required to increase functional safety and mobility TIME SPENT COUNSELING AND COORDINATING INITIAL CARE: Greater than 70 minutes. Vital Signs Vital Signs Date Time Temp Pulse Resp B/P (MAP) Pulse Ox O2 Delivery O2 Flow Rate FiO2 12/29/18 11:45 98.5 100 16 110/75 (87) 97 Home Medications Scheduled Apixaban (Eliquis) 5 Mg Tablet, 10 MG PO BID, (Reported) STARTED AT PREVIOUS FACILITY 12/29/2018. STATED FOR 4 DAYS TO END 01/02/2019 Aspirin (Aspir 81) 81 Mg Tablet.dr, 81 MG PO DAILY, (Reported) STARTED AT PREVIOUS FACILITY Atorvastatin Calcium (Atorvastatin Calcium) 80 Mg Tablet, 80 MG PO DAILY, (Reported) STARTED AT PREVIOUS FACILITY Ergocalciferol (Vitamin D2) (Vitamin D2) 50,000 Unit Capsule, 50,000 UNIT PO QWEEK, (Reported) tuesday Magnesium Oxide (Magnesium) 500 Mg Capsule, 500 MG PO DAILY, (Reported) Metoprolol Tartrate (Metoprolol Tartrate) 50 Mg Tablet, 50 MG PO BID, (Reported) STARTED AT PREVIOUS FACILITY Potassium Chloride (Potassium Chloride) 20 Meq Tablet.er, 20 MEQ PO DAILY, (R eported) STARTED AT PREVIOUS FACILITY Scheduled PRN Bisacodyl (Dulcolax) 10 Mg Supp.rect, 10 MG [place] DAILY PRN for CONSTIPATION, (Reported) STARTED AT PREVIOUS FACILITY Lorazepam (Lorazepam) 1 Mg Tablet, 1 MG PO TID PRN for ANXIETY, (Reported) STARTED AT PREVIOUS FACILITY Naproxen (Naproxen) 500 Mg Tablet, 500 MG PO Q6H PRN for PAIN, (Reported) Oxycodone HCl/Acetaminophen (Oxycodone-Acetaminophen 5-325) 1 Each Tablet, 1-2 TAB PO Q4H PRN for PAIN, (Reported) STARTED AT PREVIOUS FACILITY. Polyethylene Glycol 3350 (Miralax) 119 Gm Powder, 17 GM PO DAILY PRN for CONSTIPATION, (Reported) STARTED AT PREVIOUS FACILITY Allergies Coded Allergies: No Known Allergies (Unverified , 11/24/18) A-FIB/CHADSVASC A-FIB History Current/History of A-Fib/PAF?: No ALONZO GURROLA MD Dec 29, 2018 13:20
[2018-12-29] MEDS: oxyCODONE 5MG TAB PO PRN ×2 (13:28→20:09)
[2018-12-29] MEDS: PANTOPRAZOLE 40MG TAB (PROTONIX) PO SCH (13:35)
[2018-12-29 15:30] VITALS: BP 124/77
[2018-12-29] MEDS: GABAPENTIN 300 MG CAP PO SCH ×2 (16:17→22:29)
[2018-12-29] MEDS: IPRATROPIUM 0.5MG/ALBUTEROL 2.5MG INH SOL UD 3ML (DUONEB)(J7620) NEB SCH ×2 (16:56→19:39)
[2018-12-29 21:00] VITALS: BP 111/67
[2018-12-29] MEDS ORDERED: LORazepam 1 MG TAB PO ONE ×2 (22:15→23:00)
[2018-12-29] MEDS: ATORVASTATIN 20 MG TAB PO SCH (22:28)
[2018-12-29] MEDS: DOCUSATE SODIUM 100 MG CAP PO SCH (22:30)
[2018-12-29] MEDS: APIXABAN 5 MG TAB (ELIQUIS) PO SCH (22:30)
[2018-12-29] MEDS: METOPROLOL TART 50 MG TAB PO SCH (22:30)
[2018-12-29] MEDS: SENNA 8.6 MG TAB (SENOKOT) PO SCH (22:30)
[2018-12-30 06:00] VITALS: BP 106/65
[2018-12-30 07:22] LABS: BASO # 0.1 10^3/uL (0.0-0.2); BASO % 0.7 % (0.0-1.0); EOS # 0.3 10^3/uL (0.0-0.50); EOS % 2.3 % (0.0-3.0); HEMATOCRIT 29.5 % (36.0-47.0); HEMOGLOBIN 9.4 g/dl (12.0-15.5); LYMPH # 2.1 10^3/uL (1.5-4.5); LYMPH % 15.6 % (24.0-44.0); MEAN CORPUSCULAR HEMOGLOBIN 31.3 pg (27.0-33.0); MEAN CORPUSCULAR HGB CONC 31.9 g/dl (32.0-36.5); MEAN CORPUSCULAR VOLUME 98.3 fl (80.0-96.0); MONO # 1.2 10^3/uL (0.0-0.8); NEUTROPHILS # 9.6 10^3/uL (1.8-7.7); NEUTROPHILS % 71.7 % (36.0-66.0); PLATELET COUNT, AUTOMATED 742 10^3/uL (150-450); WHITE BLOOD COUNT 13.3 10^3/uL (4.0-10.0)
[2018-12-30] MEDS: IPRATROPIUM 0.02% SOLN 0.5MG/2.5 ML NEB INH SCH ×3 (07:49→19:52)
[2018-12-30] MEDS: IPRATROPIUM 0.5MG/ALBUTEROL 2.5MG INH SOL UD 3ML (DUONEB)(J7620) NEB SCH (07:49)
[2018-12-30 08:00] LABS: ALBUMIN 2.2 GM/DL (3.2-5.2); ALT/SGPT 27 U/L (12-78); BLOOD UREA NITROGEN 15 MG/DL (7-18); CALCIUM LEVEL 8.8 MG/DL (8.5-10.1); CARBON DIOXIDE LEVEL 27 MEQ/L (21-32); CHLORIDE LEVEL 99 MEQ/L (98-107); GLOMERULAR FILTRATION RATE > 60.0 (>51); GLUCOSE, FASTING 108 MG/DL (70-100); POTASSIUM SERUM 4.5 MEQ/L (3.5-5.1); SODIUM LEVEL 133 MEQ/L (136-145); TOTAL PROTEIN 6.2 GM/DL (6.4-8.2)
[2018-12-30 09:27] LABS: C REACTIVE PROTEIN QUANTITATIV 7.59 MG/DL (0.00-0.30)
[2018-12-30 10:14] LABS: ERYTHROCYTE SEDIMENTATION RATE 90 mm/hr (0-30)
[2018-12-30] MEDS: ASPIRIN 81 MG CHEW TABLET PO SCH (10:14)
[2018-12-30] MEDS: PANTOPRAZOLE 40MG TAB (PROTONIX) PO SCH (10:15)
[2018-12-30] MEDS: DOCUSATE SODIUM 100 MG CAP PO SCH ×3 (10:15→20:34)
[2018-12-30] MEDS: GABAPENTIN 300 MG CAP PO SCH ×3 (10:16→20:34)
[2018-12-30] MEDS: POTASSIUM CHLORIDE 10 MEQ SR TABLET PO SCH (10:16)
[2018-12-30] MEDS: METOPROLOL TART 50 MG TAB PO SCH ×2 (10:16→20:34)
[2018-12-30] MEDS: APIXABAN 5 MG TAB (ELIQUIS) PO SCH ×2 (10:17→20:34)
[2018-12-30] MEDS: oxyCODONE 5MG TAB PO PRN ×2 (10:59→20:35)
[2018-12-30 14:00] VITALS: BP 122/68
[2018-12-30 20:00] VITALS: BP 136/81
[2018-12-30] MEDS: TEMAZEPAM 7.5 MG CAP PO PRN (20:33)
[2018-12-30] MEDS: ATORVASTATIN 20 MG TAB PO SCH (20:33)
[2018-12-30] MEDS: SENNA 8.6 MG TAB (SENOKOT) PO SCH (20:34)
[2018-12-31] MEDS: oxyCODONE 5MG TAB PO PRN ×3 (03:47→20:21)
[2018-12-31 06:00] VITALS: BP 119/73
[2018-12-31] MEDS: IPRATROPIUM 0.02% SOLN 0.5MG/2.5 ML NEB INH SCH ×3 (07:37→20:11)
[2018-12-31] MEDS: DOCUSATE SODIUM 100 MG CAP PO SCH ×3 (09:50→20:19)
[2018-12-31] MEDS: ASPIRIN 81 MG CHEW TABLET PO SCH (09:50)
[2018-12-31] MEDS: GABAPENTIN 300 MG CAP PO SCH ×3 (09:50→20:19)
[2018-12-31] MEDS: PANTOPRAZOLE 40MG TAB (PROTONIX) PO SCH (09:50)
[2018-12-31] MEDS: METOPROLOL TART 50 MG TAB PO SCH ×2 (09:51→20:20)
[2018-12-31] MEDS: APIXABAN 5 MG TAB (ELIQUIS) PO SCH ×2 (09:52→20:20)
[2018-12-31] MEDS: POTASSIUM CHLORIDE 10 MEQ SR TABLET PO SCH (09:53)
[2018-12-31 14:00] VITALS: BP 126/85
[2018-12-31] MEDS: ATORVASTATIN 20 MG TAB PO SCH (20:19)
[2018-12-31] MEDS: SENNA 8.6 MG TAB (SENOKOT) PO SCH (20:20)
[2018-12-31 22:05] VITALS: BP 117/59
[2019-01-01] MEDS: TEMAZEPAM 7.5 MG CAP PO PRN ×2 (00:32→20:45)
[2019-01-01] MEDS: MOM 30ML SUSPENSION UDC PO PRN (04:29)
[2019-01-01 06:02] VITALS: BP 131/71
[2019-01-01] MEDS: IPRATROPIUM 0.02% SOLN 0.5MG/2.5 ML NEB INH SCH ×3 (07:40→20:08)
[2019-01-01] MEDS: GABAPENTIN 300 MG CAP PO SCH ×3 (08:41→20:37)
[2019-01-01] MEDS: ASPIRIN 81 MG CHEW TABLET PO SCH (08:41)
[2019-01-01] MEDS: METOPROLOL TART 50 MG TAB PO SCH ×2 (08:41→20:37)
[2019-01-01] MEDS: DOCUSATE SODIUM 100 MG CAP PO SCH ×3 (08:42→20:37)
[2019-01-01] MEDS: APIXABAN 5 MG TAB (ELIQUIS) PO SCH ×2 (08:42→20:37)
[2019-01-01] MEDS: PANTOPRAZOLE 40MG TAB (PROTONIX) PO SCH (08:42)
[2019-01-01] MEDS: POTASSIUM CHLORIDE 10 MEQ SR TABLET PO SCH (08:42)
[2019-01-01] MEDS: oxyCODONE 5MG TAB PO PRN ×2 (08:43→20:39)
[2019-01-01 14:00] VITALS: BP 122/83
[2019-01-01 14:31] LABS: ALBUMIN 2.3 GM/DL (3.2-5.2); ALT/SGPT 33 U/L (12-78); BILIRUBIN,TOTAL 0.8 MG/DL (0.2-1.0); BLOOD UREA NITROGEN 14 MG/DL (7-18); CALCIUM LEVEL 8.5 MG/DL (8.5-10.1); CARBON DIOXIDE LEVEL 27 MEQ/L (21-32); CHLORIDE LEVEL 100 MEQ/L (98-107); CREATININE FOR GFR 0.56 MG/DL (0.55-1.30); GLOMERULAR FILTRATION RATE > 60.0 (>51); GLUCOSE, FASTING 93 MG/DL (70-100); POTASSIUM SERUM 5.5 MEQ/L (3.5-5.1); SODIUM LEVEL 134 MEQ/L (136-145); TOTAL PROTEIN 5.6 GM/DL (6.4-8.2)
[2019-01-01] MEDS ORDERED: SOD POLYSTYRENE SULFONATE SUSP 15 GM/60 ML UD PO ONE (14:45)
[2019-01-01] MEDS: DOXYCYCLINE HYCLATE 100 MG TAB PO SCH ×2 (16:44→20:37)
--- NOTE | 2019-01-01 17:07 | IPNPDOC ---
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 She is wondering when her tim and sutures can be removed. REVIEW OF SYSTEMS: The following is a completed review of systems and has been reviewed. Review of systems otherwise unremarkable. PAIN: Patient self reports right calf pain EYES: No recent vision changes EARS, NOSE, & THROAT: No throat pain, or dysphagia, or rhinorrhea CARDIOVASCULAR: Denies chest pain or palpitations PULMONARY: Denies shortness of breath GASTROINTESTINAL: Denies constipation/diarrhea GENITOURINARY: denies dysuria MUSCULOSKELETAL: left aka and right fasciotomies NEUROLOGICAL:no tremor or seizure activity HEMATOLOGICAL: +PAD SKIN: left aka incision and right calf fasciotomies PSYCHIATRIC: Unremarkable All other review of systems found to be negative. PHYSICAL EXAMINATION: VITAL SIGNS: Please see below. GENERAL: Pleasant and cooperative. No acute distress. HEENT: PERRL. Extraocular movements intact. Clear conjunctiva CARDIOVASCULAR: Regular rate and rhythm. No murmurs, rubs, or gallops LUNGS: Clear to auscultation bilaterally. No wheezes. No rhonchi ABDOMEN: Soft, nontender, nondistended. Positive bowel sounds. Normal active bowel sounds NEUROLOGICAL: Alert and oriented times three. Cranial nerves II through XII grossly intact. Sensation grossly intact EXTREMITIES: 5\5 strength bilateral upper extremities. 5-\5 strength right hip flexion, knee extension, 3/5 ankle DF and EHL, 5-/5 strength in left hip flexion extremity SKIN: left residual limb c/d/i without erythema or induration right calf fasciotomies c/d/i with healthy appearing muscle tissue bilateral groin incisions, scant drainage on the left presents status post AKA and right LE fasciotomy. PLAN: 1. Rehab: PT-strengthen /maintain ROM/stretch bilat LE- prevent left hip flexion and abduction contracture, limit weight bearing to RLE for transfers, otherwise aim for NWB OT- strengthen /maintain ROM/stretch bilat UE 2. Neuro: stable, avoid delirogenic meds 3. Cardiac: s/p recent NSTEMI with cath positive for takotsubo [place], EF 65% -LV thrombus with emboli in the aorta, iliac, and bilateral LE s/p embolectomies with right lower leg fasciotomy and left AKA, c/u ASA and Eliquis -has f/u with Dr. Forrest 01/10/19 1:30 pm -will need outpatient hypercoagulation work-up -HTN, c/u betablocker, medicine consulted to assist in management -HLD, c/u statin 4. Resp: pmh COPD, current smoker, c/u Duonebs prn, smoking cessation education 5. Pain: oxycodone, gabapentin and tylenol 6. Renal: recent angiogram suspicious for renal emboli, will monitor kidney function and consult renal prn 7. GI ppx: protonix 8. DVT ppx: Eliquis 9. SKin: wound vac to be changed [id number] -left AKA incision slightly more erythematous than on admission and right fasciotomy with mild erythema yen-wound, will start Doxycycline to cover MRSA and will monitor CRP and ESR 9. Dispo: TBD Allergies Coded Allergies: No Known Allergies (Unverified , 11/24/18) Vital Signs Vital Signs Date Time Temp Pulse Resp B/P (MAP) Pulse Ox O2 Delivery O2 Flow Rate FiO2 01/01/19 14:00 98.3 102 18 122/83 (96) 96 Laboratory Data CBC/BMP Laboratory Tests 01/01/19 13:41 Calcium Level 8.5, Aspartate Amino Transf (AST/SGOT) 33, Alanine Aminotransferase (ALT/SGPT) 33, Alkaline Phosphatase 86, Total Bilirubin 0.8, Total Protein 5.6 L, Albumin 2.3 L Labs 24H Laboratory Tests 2 01/01/19 13:41: Anion Gap 7L, Glomerular Filtration Rate > 60.0, Blood Urea Nitrogen 14, Creatinine 0.56, Sodium Level 134L, Potassium Level 5.5H, Chloride Level 100, Carbon Dioxide Level 27, Calcium Level 8.5, Aspartate Amino Transf (AST/SGOT) 33, Alanine Aminotransferase (ALT/SGPT) 33, Alkaline Phosphatase 86, Total Bilirubin 0.8, Total Protein 5.6L, Albumin 2.3L, Albumin/Globulin Ratio 0.70L Microbiology Microbiology 12/30/18 Blood Culture - Preliminary, Resulted No Growth after 48 hours. All Specime... 12/30/18 Blood Culture - Preliminary, Resulted No Growth after 48 hours. All Specime... Current Medications Current Medications Current Medications Medications (Trade) Dose Ordered Sig/Kevin Route PRN Reason Start Time Stop Time Status Last Admin Dose Admin Acetaminophen (Tylenol Tab) 650 mg Q4HP PRN PO fever/MILD PAIN (PS 1-4) 12/29/18 12:15 Albuterol/ Ipratropium (Duoneb (Ipr 0.5mg/Alb 2.5mg)) 3 ml RTID NEB 12/29/18 14:00 12/30/18 07:43 DC 12/30/18 07:49 Apixaban (Eliquis) 5 mg BID PO 01/03/19 09:00 Apixaban (Eliquis) 10 mg BID PO 12/29/18 21:00 01/02/19 23:00 01/01/19 08:42 Aspirin (Aspirin Chewable) 81 mg DAILY PO 12/30/18 09:00 01/01/19 08:41 Atorvastatin Calcium (Lipitor) 80 mg QHS PO 12/29/18 21:00 12/31/18 20:19 Bacitracin/ Polymyxin B Sulfate (Polysporin Top Oint) 1 dose BID TOP 01/01/19 21:00 Docusate Sodium (Colace) 100 mg BID PO 12/29/18 21:00 12/30/18 12:13 DC 12/30/18 10:15 Docusate Sodium (Colace) 100 mg TID PO 12/30/18 16:00 01/01/19 08:42 Doxycycline Hyclate (Vibramycin) 100 mg BID PO 01/01/19 15:45 01/01/19 16:44 Gabapentin (Neurontin) 300 mg TID PO 12/29/18 16:00 01/01/19 16:44 Home Med (Med Rec Complete!) ASDIRECTED XX 12/29/18 13:15 12/29/18 13:16 DC Ipratropium [place]on (Atrovent 0.02%) 0.25 mg RTID INH 12/30/18 08:00 01/01/19 07:40 Magnesium Hydroxide (Milk Of Magnesia) 30 ml DAILYPRN PRN PO CONSTIPATION 12/30/18 11:45 01/01/19 04:29 Metoprolol Tartrate (Lopressor) 50 mg BID PO 12/29/18 21:00 01/01/19 08:41 Nitroglycerin (Nitrostat (1/ 200)) 0.3 mg Q5MP PRN SL CHEST PAIN 12/29/18 12:15 Oxycodone HCl (Roxicodone, Oxyir) 5 mg Q4HP PRN PO PAIN 12/29/18 12:15 Oxycodone HCl (Roxicodone, Oxyir) 10 mg Q6HP PRN PO SEVERE PAIN (PS 8-10) 12/29/18 12:15 01/01/19 08:43 Pantoprazole Sodium (Protonix) 40 mg DAILY PO 12/29/18 09:00 01/01/19 08:42 Potassium Chloride (Micro-K Extencaps) 20 meq DAILY PO 12/30/18 09:00 01/01/19 08:42 Senna (Senokot) 1 tab QHS PO 12/29/18 21:00 12/31/18 20:20 Temazepam (Restoril) 7.5 mg QHSP PRN PO INSOMNIA 12/30/18 12:00 01/01/19 00:32 ALONZO GURROLA MD Jan 01, 2019 17:07
[2019-01-01 19:56] VITALS: BP 124/67
[2019-01-01] MEDS: ATORVASTATIN 20 MG TAB PO SCH (20:37)
[2019-01-01] MEDS: SENNA 8.6 MG TAB (SENOKOT) PO SCH (20:37)
[2019-01-01] MEDS: POLYSPORIN TOPICAL OINTMENT 15GM TOP SCH (20:52)
--- NOTE | 2019-01-01 23:36 | IPN ---
DATE: 01/01/2019 She is a 58-year-old female who had a left above-knee amputation and right lower extremity fasciotomy. She had a left superficial femoral artery (SFA) occlusion, mesenteric artery stenosis, underwent vascular procedure 12/12/2018, transferred to [facility] 12/13/2018 for non-ST elevation myocardial infarction, admitted for cardiac catheterization. She had a Takotsubo cardiomyopathy. No coronary artery disease. She had acute systolic congestive heart failure (CHF) with an ejection fraction of 25%. She developed bilateral cold lower limbs and post cath echo on 12/14/2018 revealed a left ventricular thrombus. She was started on intravenous (IV) heparin, had bilateral femoral cutdowns with aortic iliac SFA, DFA embolectomies with bilateral four compartment fasciotomies performed by Dr. Forrest. Followup CTA on 12/16/2018 showed occlusion of the infrarenal aorta, reconstitution of diminutive iliac arteries and common femoral artery. Limited opacification of the superficial femoral arteries, left more so than right with non-opacification of the popliteal arteries and vessels below knee. There were areas of decreased perfusion, cortical right kidney, lesser degrees within the left kidney, likely embolic. Repeat transesophageal echocardiogram (CARISSA) on 12/17/2018 showed hyperdynamic, greater than 65% left ventricular function. Her left limb was deemed nonsalvageable and she underwent above-knee amputation on 12/22/2018. She was transitioned from a heparin drip to oral Eliquis, evaluated by therapy and was subsequently admitted to acute rehab unit on 12/29/2018. Today, she was sitting up in the chair. She was in good spirits. Wound VAC was in place on the right lower leg, which was warm. Vital signs have been stable. Will get a repeat CBC and CMP in the morning. White count yesterday was 13.3. She continues on Eliquis, doxycycline, statin, beta ana. She has had no chest pain or increased shortness of breath. OBJECTIVE: Blood pressure 124/67, pulse 100, respirations 18, temperature 98. Patient is alert and oriented times three. Pupils equal and reactive to light. Cornea and sclerae clear. Conjunctivae is normal. No facial asymmetry. Pharynx: Tongue and gums pink and moist. Tongue is midline. Neck is supple without lymphadenopathy. No thyromegaly. No goiter. Carotids 2+ without bruits. Chest: Decreased breath sounds. No wheeze or retractions. Heart is regular. Abdomen: Benign. Bowel sounds positive. Genital/Rectal: Not done. Extremities: Right lower leg warm to touch. Wound VAC in place. IMPRESSION/PLAN: Peripheral arterial disease with thrombus leading to critical limb ischemia, status post left above-knee amputation (AKA). She continues aspirin, atorvastatin, Eliquis, on rehab per rehabilitation team. LV thrombus. Continues Eliquis. Hypertension. Continues metoprolol. Nicotine dependence. Counseling provided. Chronic obstructive pulmonary disease (COPD). No acute exacerbation, currently clinically stable. Right leg fasciotomy. Wound care. The wound VAC in place, to be changed Tuesday, Tuesday, Tuesday. Followup schedule with Dr. Forrest. Deep vein thrombosis (DVT) prophylaxis. Patient is on Eliquis.
[2019-01-02 05:08] VITALS: BP 118/72
[2019-01-02 06:27] LABS: BASO # 0.1 10^3/uL (0.0-0.2); BASO % 0.9 % (0.0-1.0); EOS # 0.3 10^3/uL (0.0-0.50); EOS % 3.6 % (0.0-3.0); HEMATOCRIT 27.6 % (36.0-47.0); HEMOGLOBIN 8.8 g/dl (12.0-15.5); LYMPH # 1.7 10^3/uL (1.5-4.5); LYMPH % 18.5 % (24.0-44.0); MEAN CORPUSCULAR HEMOGLOBIN 31.9 pg (27.0-33.0); MEAN CORPUSCULAR HGB CONC 31.9 g/dl (32.0-36.5); MONO % 10.3 % (0.0-5.0); NEUTROPHILS # 6.1 10^3/uL (1.8-7.7); NEUTROPHILS % 66.3 % (36.0-66.0); PLATELET COUNT, AUTOMATED 731 10^3/uL (150-450); RED BLOOD COUNT 2.76 10^6/uL (4.00-5.40); WHITE BLOOD COUNT 9.2 10^3/uL (4.0-10.0)
[2019-01-02 06:53] LABS: BLOOD UREA NITROGEN 12 MG/DL (7-18); C REACTIVE PROTEIN QUANTITATIV 4.11 MG/DL (0.00-0.30); CALCIUM LEVEL 8.4 MG/DL (8.5-10.1); CARBON DIOXIDE LEVEL 30 MEQ/L (21-32); CHLORIDE LEVEL 102 MEQ/L (98-107); CREATININE FOR GFR 0.53 MG/DL (0.55-1.30); GLOMERULAR FILTRATION RATE > 60.0 (>51); GLUCOSE, FASTING 99 MG/DL (70-100); POTASSIUM SERUM 3.7 MEQ/L (3.5-5.1); SODIUM LEVEL 135 MEQ/L (136-145)
[2019-01-02] MEDS: IPRATROPIUM 0.02% SOLN 0.5MG/2.5 ML NEB INH SCH ×2 (07:13→13:26)
[2019-01-02 07:17] LABS: ERYTHROCYTE SEDIMENTATION RATE 74 mm/hr (0-30)
[2019-01-02] MEDS: GABAPENTIN 300 MG CAP PO SCH (08:36)
[2019-01-02] MEDS: METOPROLOL TART 50 MG TAB PO SCH ×2 (08:36→21:21)
[2019-01-02] MEDS: APIXABAN 5 MG TAB (ELIQUIS) PO SCH ×2 (08:36→21:21)
[2019-01-02] MEDS: PANTOPRAZOLE 40MG TAB (PROTONIX) PO SCH (08:36)
[2019-01-02] MEDS: DOXYCYCLINE HYCLATE 100 MG TAB PO SCH ×2 (08:36→21:22)
[2019-01-02] MEDS: ASPIRIN 81 MG CHEW TABLET PO SCH (08:36)
[2019-01-02] MEDS: oxyCODONE 5MG TAB PO PRN (08:37)
[2019-01-02] MEDS: DOCUSATE SODIUM 100 MG CAP PO SCH ×3 (09:00→21:21)
[2019-01-02] MEDS: POLYSPORIN TOPICAL OINTMENT 15GM TOP SCH ×2 (09:11→21:26)
--- NOTE | 2019-01-02 12:25 | IPN ---
DATE: 01/02/2019 Diana was seen in the gym on acute rehabilitation unit (ARU). She expressed no complaints. Denies any chest pain, shortness of breath. No wheezing problems. Eager to go home. PHYSICAL EXAMINATION: Vital signs stable. Lungs: Clear. Heart: Regular rate and rhythm. Abdomen: Soft, nontender. LABS: White count is down to 9.2. Potassium is down to 3.7. IMPRESSION: 1. Status post left [id number] (AKA). Thrombus causing ischemia. Continue aspirin, Eliquis, atorvastatin. 2. Hypertension. Blood pressure is well controlled. 3. Tobacco abuse. Tolerating nicotine abstention well. 4. Chronic obstructive pulmonary disease (COPD). Currently stable. 5. Right leg fasciotomy. Wound vacuum-assisted closure (VAC) is in place.
[2019-01-02 14:00] VITALS: BP 118/72
--- NOTE | 2019-01-02 16:56 | IPNPDOC ---
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 REVIEW OF SYSTEMS: The following is a completed review of systems and has been reviewed. Review of systems otherwise unremarkable. PAIN: Patient self reports right calf pain EYES: No recent vision changes EARS, NOSE, & THROAT: No throat pain, or dysphagia, or rhinorrhea CARDIOVASCULAR: Denies chest pain or palpitations PULMONARY: Denies shortness of breath GASTROINTESTINAL: Denies constipation/diarrhea GENITOURINARY: denies dysuria MUSCULOSKELETAL: left aka and right fasciotomies NEUROLOGICAL:no tremor or seizure activity HEMATOLOGICAL: +PAD SKIN: left aka incision and right calf fasciotomies PSYCHIATRIC: Unremarkable All other review of systems found to be negative. PHYSICAL EXAMINATION: VITAL SIGNS: Please see below. GENERAL: Pleasant and cooperative. No acute distress. HEENT: PERRL. Extraocular movements intact. Clear conjunctiva CARDIOVASCULAR: Regular rate and rhythm. No murmurs, rubs, or gallops LUNGS: Clear to auscultation bilaterally. No wheezes. No rhonchi ABDOMEN: Soft, nontender, nondistended. Positive bowel sounds. Normal active bowel sounds NEUROLOGICAL: Alert and oriented times three. Cranial nerves II through XII cindy sly intact. Sensation grossly intact EXTREMITIES: 5\5 strength bilateral upper extremities. 5-\5 strength right hip flexion, knee extension, 3/5 ankle DF and EHL, 5-/5 strength in left hip flexion extremity SKIN: left residual limb c/d/i without erythema or induration right calf fasciotomies c/d/i with healthy appearing muscle tissue bilateral groin incisions, scant drainage on the left presents status post AKA and right LE fasciotomy. PLAN: 1. Rehab: PT-strengthen /maintain ROM/stretch bilat LE- prevent left hip flexion and abduction contracture, limit weight bearing to RLE for transfers, otherwise aim for NWB OT- strengthen /maintain ROM/stretch bilat UE 2. Neuro: stable, avoid delirogenic meds 3. Cardiac: s/p recent NSTEMI with cath positive for takotsubo [place], EF 65% -LV thrombus with emboli in the aorta, iliac, and bilateral LE s/p embolectomies with right lower leg fasciotomy and left AKA, c/u ASA and Eliquis -has f/u with Dr. Forrest 01/10/19 1:30 pm -will need outpatient hypercoagulation work-up -HTN, c/u betablocker, medicine consulted to assist in management -HLD, c/u statin 4. Resp: pmh COPD, current smoker, c/u Duonebs prn, smoking cessation education 5. Pain: oxycodone, will increase gabapentin to 400 TID for neurpathic pain and monitor, c/u tylenol 6. Renal: recent angiogram suspicious for renal emboli, will monitor kidney function and consult renal prn 7. GI ppx: protonix, pmh hemorrhoids will order FOBT 8. DVT ppx: Eliquis 9. SKin: wound vac to be changed [id number], bacitracin to bilateral groin incisions and cover with gauze -left AKA incision slightly more erythematous than on admission and right fasciotomy with mild erythema yen-wound, c/u Doxycycline to cover MRSA -leukocytosis improved and CRP and ESR trending down 10/ Hyperkalemia 01/01/19 s/p kayexealte improved, d/c'd K, will recheck tomorrow 9. Dispo: TBD Allergies Coded Allergies: No Known Allergies (Unverified , 11/24/18) Vital Signs Vital Signs Date Time Temp Pulse Resp B/P (MAP) Pulse Ox O2 Delivery O2 Flow Rate FiO2 01/02/19 14:00 97.6 93 18 118/72 (87) 95 Laboratory Data CBC/BMP Laboratory Tests 01/02/19 06:02 Red Blood Count 2.76 L, Mean Corpuscular Volume 100.0 H, Mean Corpuscular Hemoglobin 31.9, Mean Corpuscular Hemoglobin Concent 31.9 L, Red Cell Distribution Width 19.0 H, Neutrophils (%) (Auto) 66.3 H, Lymphocytes (%) (Auto) 18.5 L, Monocytes (%) (Auto) 10.3 H, Eosinophils (%) (Auto) 3.6 H, Basophils (%) (Auto) 0.9, Neutrophils # (Auto) 6.1, Lymphocytes # (Auto) 1.7, Monocytes # (Auto) 1.0 H, Eosinophils # (Auto) 0.3, Basophils # (Auto) 0.1, Calcium Level 8.4 L Labs 24H Laboratory Tests 2 01/02/19 06:02: Immature Granulocyte % (Auto) 0.4, White Blood Count 9.2, Red Blood Count 2.76L, Hemoglobin 8.8L, Hematocrit 27.6L, Mean Corpuscular Volume 100.0H, Mean Corpuscular Hemoglobin 31.9, Mean Corpuscular Hemoglobin Concent 31.9L, Red Cell Distribution Width 19.0H, Platelet Count 731H, Neutrophils (%) (Auto) 66.3H, Lymphocytes (%) (Auto) 18.5L, Monocytes (%) (Auto) 10.3H, Eosinophils (%) (Auto) 3.6H, Basophils (%) (Auto) 0.9, Neutrophils # (Auto) 6.1, Lymphocytes # (Auto) 1.7, Monocytes # (Auto) 1.0H, Eosinophils # (Auto) 0.3, Basophils # (Auto) 0.1, Nucleated Red Blood Cells % (auto) 0.0, Erythrocyte Sedimentation Rate 74H, Anion Gap 3L, Glomerular Filtration Rate > 60.0, Blood Urea Nitrogen 12, Creatinine 0.53L, Sodium Level 135L, Potassium Level 3.7#, Chloride Level 102, Carbon Dioxide Level 30, Calcium Level 8.4L, C-Reactive Protein, Quantitative 4.11H Microbiology Microbiology 12/30/18 Blood Culture - Preliminary, Resulted No Growth after 72 hours. All specime... 12/30/18 Blood Culture - Preliminary, Resulted No Growth after 72 hours. All specime... Current Medications Current Medications Current Medications Medications (Trade) Dose Ordered Sig/Kevin Route PRN Reason Start Time Stop Time Status Last Admin Dose Admin Acetaminophen (Tylenol Tab) 650 mg Q4HP PRN PO fever/MILD PAIN (PS 1-4) 12/29/18 12:15 Albuterol/ Ipratropium (Duoneb (Ipr 0.5mg/Alb 2.5mg)) 3 ml RTID NEB 12/29/18 14:00 12/30/18 07:43 DC 12/30/18 07:49 Apixaban (Eliquis) 5 mg BID PO 01/03/19 09:00 Apixaban (Eliquis) 10 mg BID PO 12/29/18 21:00 01/02/19 23:00 01/02/19 08:36 Aspirin (Aspirin Chewable) 81 mg DAILY PO 12/30/18 09:00 01/02/19 08:36 Atorvastatin Calcium (Lipitor) 80 mg QHS PO 12/29/18 21:00 01/01/19 20:37 Bacitracin/ Polymyxin B Sulfate (Polysporin Top Oint) 1 dose BID TOP 01/01/19 21:00 01/02/19 09:11 Docusate Sodium (Colace) 100 mg BID PO 12/29/18 21:00 12/30/18 12:13 DC 12/30/18 10:15 Docusate Sodium (Colace) 100 mg TID PO 12/30/18 16:00 01/01/19 20:37 Doxycycline Hyclate (Vibramycin) 100 mg BID PO 01/01/19 15:45 01/02/19 08:36 Gabapentin (Neurontin) 300 mg TID PO 12/29/18 16:00 01/02/19 08:36 Home Med (Med Rec Complete!) ASDIRECTED XX 12/29/18 13:15 12/29/18 13:16 DC Ipratropium [place] (Atrovent 0.02%) 0.25 mg RTID INH 12/30/18 08:00 01/01/19 20:08 Magnesium Hydroxide (Milk Of Magnesia) 30 ml DAILYPRN PRN PO CONSTIPATION 12/30/18 11:45 01/01/19 04:29 Metoprolol Tartrate (Lopressor) 50 mg BID PO 12/29/18 21:00 01/02/19 08:36 Nitroglycerin (Nitrostat (1/ 200)) 0.3 mg Q5MP PRN SL CHEST PAIN 12/29/18 12:15 Oxycodone HCl (Roxicodone, Oxyir) 5 mg Q4HP PRN PO PAIN 12/29/18 12:15 Oxycodone HCl (Roxicodone, Oxyir) 10 mg Q6HP PRN PO SEVERE PAIN (PS 8-10) 12/29/18 12:15 01/02/19 08:37 Pantoprazole Sodium (Protonix) 40 mg DAILY PO 12/29/18 09:00 01/02/19 08:36 Potassium Chloride (Micro-K Extencaps) 20 meq DAILY PO 12/30/18 09:00 01/01/19 19:40 DC 01/01/19 08:42 Senna (Senokot) 1 tab QHS PO 12/29/18 21:00 01/01/19 20:37 Temazepam (Restoril) 7.5 mg QHSP PRN PO INSOMNIA 12/30/18 12:00 01/01/19 20:45 ALONZO GURROLA MD Jan 02, 2019 16:56
[2019-01-02 20:00] VITALS: BP 124/76
[2019-01-02] MEDS: ATORVASTATIN 20 MG TAB PO SCH (21:22)
[2019-01-02] MEDS: SENNA 8.6 MG TAB (SENOKOT) PO SCH (21:22)
[2019-01-02] MEDS: GABAPENTIN 400 MG CAP PO SCH (21:22)
[2019-01-02] MEDS: ACETAMINOPHEN 500 MG TAB PO SCH (21:24)
[2019-01-02] MEDS: TEMAZEPAM 7.5 MG CAP PO PRN (21:56)
[2019-01-03 05:23] LABS: BASO # 0.1 10^3/uL (0.0-0.2); BASO % 1.3 % (0.0-1.0); EOS # 0.4 10^3/uL (0.0-0.50); EOS % 4.9 % (0.0-3.0); HEMATOCRIT 28.5 % (36.0-47.0); HEMOGLOBIN 9.1 g/dl (12.0-15.5); LYMPH # 1.8 10^3/uL (1.5-4.5); LYMPH % 22.5 % (24.0-44.0); MEAN CORPUSCULAR HEMOGLOBIN 32.2 pg (27.0-33.0); MEAN CORPUSCULAR HGB CONC 31.9 g/dl (32.0-36.5); MEAN CORPUSCULAR VOLUME 100.7 fl (80.0-96.0); MONO # 0.9 10^3/uL (0.0-0.8); MONO % 10.9 % (0.0-5.0); NEUTROPHILS # 4.7 10^3/uL (1.8-7.7); PLATELET COUNT, AUTOMATED 737 10^3/uL (150-450); RED BLOOD COUNT 2.83 10^6/uL (4.00-5.40); WHITE BLOOD COUNT 7.8 10^3/uL (4.0-10.0)
[2019-01-03 05:46] LABS: BLOOD UREA NITROGEN 13 MG/DL (7-18); CALCIUM LEVEL 8.1 MG/DL (8.5-10.1); CARBON DIOXIDE LEVEL 28 MEQ/L (21-32); CHLORIDE LEVEL 106 MEQ/L (98-107); CREATININE FOR GFR 0.54 MG/DL (0.55-1.30); GLOMERULAR FILTRATION RATE > 60.0 (>51); GLUCOSE, FASTING 94 MG/DL (70-100); POTASSIUM SERUM 3.6 MEQ/L (3.5-5.1); SODIUM LEVEL 140 MEQ/L (136-145)
[2019-01-03 06:00] VITALS: BP 128/67
--- NOTE | 2019-01-03 09:31 | IPNPDOC ---
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 She reports she has been feeling dizzy since her surgeries and it is not posi tion-related. REVIEW OF SYSTEMS: The following is a completed review of systems and has been reviewed. Review of systems otherwise unremarkable. PAIN: Patient self reports right calf pain EYES: No recent vision changes EARS, NOSE, & THROAT: No throat pain, or dysphagia, or rhinorrhea CARDIOVASCULAR: Denies chest pain or palpitations PULMONARY: Denies shortness of breath GASTROINTESTINAL: Denies constipation/diarrhea GENITOURINARY: denies dysuria MUSCULOSKELETAL: left aka and right fasciotomies NEUROLOGICAL:no tremor or seizure activity HEMATOLOGICAL: +PAD SKIN: left aka incision and right calf fasciotomies PSYCHIATRIC: Unremarkable All other review of systems found to be negative. PHYSICAL EXAMINATION: VITAL SIGNS: Please see below. GENERAL: Pleasant and cooperative. No acute distress. HEENT: PERRL. Extraocular movements intact. Clear conjunctiva CARDIOVASCULAR: Regular rate and rhythm. No murmurs, rubs, or gallops LUNGS: Clear to auscultation bilaterally. No wheezes. No rhonchi ABDOMEN: Soft, nontender, nondistended. Positive bowel sounds. Normal active bowel sounds NEUROLOGICAL: Alert and oriented times three. Cranial nerves II through XII grossly intact. Sensation grossly intact EXTREMITIES: 5\5 strength bilateral upper extremities. 5-\5 strength right hip flexion, knee extension, 3/5 ankle DF and EHL, 5-/5 strength in left hip flexion extremity SKIN: left residual limb c/d/i without erythema or induration right calf fasciotomies c/d/i with healthy appearing muscle tissue bilateral groin incisions, scant drainage on the left presents status post AKA and right LE fasciotomy. PLAN: 1. Rehab: PT-strengthen /maintain ROM/stretch bilat LE- prevent left hip flexion and abduction contracture, limit weight bearing to RLE for transfers, otherwise aim for NWB OT- strengthen /maintain ROM/stretch bilat UE 2. Neuro: stable, avoid delirogenic meds 3. Cardiac: s/p recent NSTEMI with cath positive for takotsubo [place], EF 65% -LV thrombus with emboli in the aorta, iliac, and bilateral LE s/p embolectomies with right lower leg fasciotomy and left AKA, c/u ASA and Eliquis -has f/u with Dr. Forrest 01/10/19 1:30 pm -will need outpatient hypercoagulation work-up -HTN, c/u betablocker, medicine consulted to assist in management -HLD, c/u statin 4. Resp: pmh COPD, current smoker, c/u Duonebs prn, smoking cessation education 5. Pain: oxycodone, will increase gabapentin to 400 TID for neurpathic pain and monitor, c/u tylenol 6. Renal: recent angiogram suspicious for renal emboli, will monitor kidney function and consult renal prn 7. GI ppx: protonix, pmh hemorrhoids, FOBT negative 8. DVT ppx: Eliquis 9. SKin: wound vac to be changed [id number], bacitracin to bilateral groin incisions and cover with gauze- healing well -left AKA incision slightly more erythematous than on admission and right fasciotomy with mild erythema yen-wound, c/u Doxycycline to cover MRSA -leukocytosis improved and CRP and ESR trending down 10/ Hyperkalemia 01/01/19 s/p kayexealte improved, d/c'd K, c/u to monitor 9. Dispo: 01/16/19 to [facility] housing Allergies Coded Allergies: No Known Allergies (Unverified , 11/24/18) Vital Signs Vital Signs Date Time Temp Pulse Resp B/P (MAP) Pulse Ox O2 Delivery O2 Flow Rate FiO2 01/03/19 06:00 96.8 82 18 128/67 (87) 98 Laboratory Data CBC/BMP Laboratory Tests 01/03/19 05:10 Red Blood Count 2.83 L, Mean Corpuscular Volume 100.7 H, Mean Corpuscular Hemoglobin 32.2, Mean Corpuscular Hemoglobin Concent 31.9 L, Red Cell D istribution Width 18.6 H, Neutrophils (%) (Auto) 60.0, Lymphocytes (%) (Auto) 22.5 L, Monocytes (%) (Auto) 10.9 H, Eosinophils (%) (Auto) 4.9 H, Basophils (%) (Auto) 1.3 H, Neutrophils # (Auto) 4.7, Lymphocytes # (Auto) 1.8, Monocytes # (Auto) 0.9 H, Eosinophils # (Auto) 0.4, Basophils # (Auto) 0.1, Calcium Level 8.1 L Labs 24H Laboratory Tests 2 01/03/19 05:10: Immature Granulocyte % (Auto) 0.4, White Blood Count 7.8, Red Blood Count 2.83L, Hemoglobin 9.1L, Hematocrit 28.5L, Mean Corpuscular Volume 100.7H, Mean Corpuscular Hemoglobin 32.2, Mean Corpuscular Hemoglobin Concent 31.9L, Red Cell Distribution Width 18.6H, Platelet Count 737H, Neutrophils (%) (Auto) 60.0, Lymphocytes (%) (Auto) 22.5L, Monocytes (%) (Auto) 10.9H, Eosinophils (%) (Auto) 4.9H, Basophils (%) (Auto) 1.3H, Neutrophils # (Auto) 4.7, Lymphocytes # (Auto) 1.8, Monocytes # (Auto) 0.9H, Eosinophils # (Auto) 0.4, Basophils # (Auto) 0.1, Nucleated Red Blood Cells % (auto) 0.0, Anion Gap 6L, Glomerular Filtration Rate > 60.0, Blood Urea Nitrogen 13, Creatinine 0.54L, Sodium Level 140, Potassium Level 3.6, Chloride Level 106, Carbon Dioxide Level 28, Calcium Level 8.1L Microbiology Microbiology 12/30/18 Blood Culture - Preliminary, Resulted No Growth after 72 hours. All specime... 12/30/18 Blood Culture - Preliminary, Resulted No Growth after 72 hours. All specime... Current Medications Current Medications Current Medications Medications (Trade) Dose Ordered Sig/Kevin Route PRN Reason Start Time Stop Time Status Last Admin Dose Admin Acetaminophen (Tylenol Tab) 650 mg Q4HP PRN PO fever/MILD PAIN (PS 1-4) 12/29/18 12:15 01/02/19 16:56 DC Acetaminophen (Tylenol Tab) 1,000 mg TID PO 01/02/19 21:00 01/02/19 21:24 Albuterol/ Ipratropium (Duoneb (Ipr 0.5mg/Alb 2.5mg)) 3 ml RTID NEB 12/29/18 14:00 12/30/18 07:43 DC 12/30/18 07:49 Apixaban (Eliquis) 5 mg BID PO 01/03/19 09:00 Apixaban (Eliquis) 10 mg BID PO 12/29/18 21:00 01/02/19 23:00 DC 01/02/19 21:21 Aspirin (Aspirin Chewable) 81 mg DAILY PO 12/30/18 09:00 01/02/19 08:36 Atorvastatin Calcium (Lipitor) 80 mg QHS PO 12/29/18 21:00 01/02/19 21:22 Bacitracin/ Polymyxin B Sulfate (Polysporin Top Oint) 1 dose BID TOP 01/01/19 21:00 01/02/19 21:26 Docusate Sodium (Colace) 100 mg BID PO 12/29/18 21:00 12/30/18 12:13 DC 12/30/18 10:15 Docusate Sodium (Colace) 100 mg TID PO 12/30/18 16:00 01/02/19 21:21 Doxycycline Hyclate (Vibramycin) 100 mg BID PO 01/01/19 15:45 01/02/19 21:22 Gabapentin (Neurontin) 300 mg TID PO 12/29/18 16:00 01/02/19 16:54 DC 01/02/19 08:36 Gabapentin (Neurontin) 400 mg TID PO 01/02/19 21:00 01/02/19 21:22 Home Med (Med Rec Complete!) ASDIRECTED XX 12/29/18 13:15 12/29/18 13:16 DC Ipratropium [place] (Atrovent 0.02%) 0.25 mg RTID INH 12/30/18 08:00 01/02/19 16:54 DC 01/01/19 20:08 Magnesium Hydroxide (Milk Of Magnesia) 30 ml DAILYPRN PRN PO CONSTIPATION 12/30/18 11:45 01/01/19 04:29 Metoprolol Tartrate (Lopressor) 50 mg BID PO 12/29/18 21:00 01/02/19 21:21 Nitroglycerin (Nitrostat (1/ 200)) 0.3 mg Q5MP PRN SL CHEST PAIN 12/29/18 12:15 Oxycodone HCl (Roxicodone, Oxyir) 5 mg Q4HP PRN PO PAIN 12/29/18 12:15 Oxycodone HCl (Roxicodone, Oxyir) 10 mg Q6HP PRN PO SEVERE PAIN (PS 8-10) 12/29/18 12:15 01/02/19 16:56 DC 01/02/19 08:37 Pantoprazole Sodium (Protonix) 40 mg DAILY PO 12/29/18 09:00 01/02/19 08:36 Potassium Chloride (Micro-K Extencaps) 20 meq DAILY PO 12/30/18 09:00 01/01/19 19:40 DC 01/01/19 08:42 Senna (Senokot) 1 tab QHS PO 12/29/18 21:00 01/02/19 21:22 Temazepam (Restoril) 7.5 mg QHSP PRN PO INSOMNIA 12/30/18 12:00 01/02/19 21:56 ALONZO GURROLA MD Jan 03, 2019 09:31
[2019-01-03] MEDS: ASPIRIN 81 MG CHEW TABLET PO SCH (09:48)
[2019-01-03] MEDS: APIXABAN 5 MG TAB (ELIQUIS) PO SCH ×2 (09:48→20:21)
[2019-01-03] MEDS: DOXYCYCLINE HYCLATE 100 MG TAB PO SCH ×2 (09:48→20:20)
[2019-01-03] MEDS: ACETAMINOPHEN 500 MG TAB PO SCH ×3 (09:48→20:22)
[2019-01-03] MEDS: METOPROLOL TART 50 MG TAB PO SCH ×2 (09:49→20:21)
[2019-01-03] MEDS: PANTOPRAZOLE 40MG TAB (PROTONIX) PO SCH (09:49)
[2019-01-03] MEDS: DOCUSATE SODIUM 100 MG CAP PO SCH ×3 (09:49→20:20)
[2019-01-03] MEDS: POLYSPORIN TOPICAL OINTMENT 15GM TOP SCH ×2 (09:49→20:22)
[2019-01-03] MEDS: GABAPENTIN 400 MG CAP PO SCH ×3 (09:49→20:20)
[2019-01-03 14:00] VITALS: BP 116/63
[2019-01-03 20:20] VITALS: BP 116/77
[2019-01-03] MEDS: SENNA 8.6 MG TAB (SENOKOT) PO SCH (20:20)
[2019-01-03] MEDS: ATORVASTATIN 20 MG TAB PO SCH (20:21)
[2019-01-03] MEDS: TEMAZEPAM 7.5 MG CAP PO PRN (21:46)
[2019-01-04 06:00] VITALS: BP 137/84
[2019-01-04] MEDS: ASPIRIN 81 MG CHEW TABLET PO SCH (07:51)
[2019-01-04] MEDS: APIXABAN 5 MG TAB (ELIQUIS) PO SCH ×2 (07:52→20:48)
[2019-01-04] MEDS: GABAPENTIN 400 MG CAP PO SCH ×3 (07:52→20:47)
[2019-01-04] MEDS: PANTOPRAZOLE 40MG TAB (PROTONIX) PO SCH (07:52)
[2019-01-04] MEDS: METOPROLOL TART 50 MG TAB PO SCH (07:52)
[2019-01-04] MEDS: ACETAMINOPHEN 500 MG TAB PO SCH ×3 (07:52→20:48)
[2019-01-04] MEDS: DOXYCYCLINE HYCLATE 100 MG TAB PO SCH ×2 (07:52→20:48)
[2019-01-04] MEDS: DOCUSATE SODIUM 100 MG CAP PO SCH ×3 (07:53→20:46)
[2019-01-04] MEDS: POLYSPORIN TOPICAL OINTMENT 15GM TOP SCH ×2 (07:54→20:49)
[2019-01-04] MEDS ORDERED: ACETAMINOPHEN TAB 650MG DOSE (2X325MG) PO ONE (12:00)
[2019-01-04] MEDS ORDERED: diphenhydrAMINE 25 MG CAP PO ONE (12:00)
[2019-01-04 14:00] VITALS: BP 115/57
--- NOTE | 2019-01-04 15:49 | IPNPDOC ---
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 REVIEW OF SYSTEMS: The following is a completed review of systems and has been reviewed. Review of systems otherwise unremarkable. PAIN: Patient self reports right calf pain EYES: No recent vision changes EARS, NOSE, & THROAT: No throat pain, or dysphagia, or rhinorrhea CARDIOVASCULAR: Denies chest pain or palpitations PULMONARY: Denies shortness of breath GASTROINTESTINAL: Denies constipation/diarrhea GENITOURINARY: denies dysuria MUSCULOSKELETAL: left aka and right fasciotomies NEUROLOGICAL:no tremor or seizure activity HEMATOLOGICAL: +PAD SKIN: left aka incision and right calf fasciotomies PSYCHIATRIC: Unremarkable All other review of systems found to be negative. PHYSICAL EXAMINATION: VITAL SIGNS: Please see below. GENERAL: Pleasant and cooperative. No acute distress. HEENT: PERRL. Extraocular movements intact. Clear conjunctiva CARDIOVASCULAR: Regular rate and rhythm. No murmurs, rubs, or gallops LUNGS: Clear to auscultation bilaterally. No wheezes. No rhonchi ABDOMEN: Soft, nontender, nondistended. Positive bowel sounds. Normal active bowel sounds NEUROLOGICAL: Alert and oriented times three. Cranial nerves II through XII grossly intact. Sensation grossly intact EXTREMITIES: 5\5 strength bilateral upper extremities. 5-\5 strength right hip flexion, knee extension, 3/5 ankle DF and EHL, 5-/5 strength in left hip flexion extremity SKIN: left residual limb c/d/i without erythema or induration right calf fasciotomies c/d/i with healthy appearing muscle tissue bilateral groin incisions, scant drainage on the left presents status post AKA and right LE fasciotomy. PLAN: 1. Rehab: PT-strengthen /maintain ROM/stretch bilat LE- prevent left hip flexion and abduction contracture, limit weight bearing to RLE for transfers, otherwise aim for NWB OT- strengthen /maintain ROM/stretch bilat UE 2. Neuro: stable, avoid delirogenic meds 3. Cardiac: s/p recent NSTEMI with cath positive for takotsubo [place], EF 65% -LV thrombus with emboli in the aorta, iliac, and bilateral LE s/p embolectomies with right lower leg fasciotomy and left AKA, c/u ASA and Eliquis -has f/u with Dr. Forrest 01/10/19 1:30 pm -will need outpatient hypercoagulation work-up -HTN, medicine consulted to assist in management, discussed episode of bradycardia l yesterday to 48bpm noted by therapy staff taken just after patient woke from a nap in setting of ST changes and recent DC with Dr. Yeung who recommended lowering beta-ana dosing and would be happy to follow as outpatient, will lower metoprolol and give 1 unit rbcs for Hgb 9 -HLD, c/u statin 4. Resp: pmh COPD, current smoker, c/u Duonebs prn, smoking cessation education 5. Pain: oxycodone, will increase gabapentin to 400 TID for neurpathic pain and monitor, c/u tylenol 6. Renal: recent angiogram suspicious for renal emboli, will monitor kidney function and consult renal prn 7. GI ppx: protonix, pmh hemorrhoids, FOBT negative 8. DVT ppx: Eliquis 9. SKin: wound vac to be changed [id number], bacitracin to bilateral groin incisions and cover with gauze- healing well -left AKA incision slightly more erythematous than on admission and right fasciotomy with mild erythema yen-wound, c/u Doxycycline to cover MRSA -leukocytosis improved and CRP and ESR trending down 10/ Hyperkalemia 01/01/19 s/p kayexealte improved, d/c'd K, c/u to monitor 11. Heme: postop anemia with persistent dizziness, will give one unit today for Hgb of 9, not concerned for GI bleed given stable Hgb and negative FOBT 9. Dispo: 01/16/19 to [facility] housing Allergies Coded Allergies: No Known Allergies (Unverified , 11/24/18) Vital Signs Vital Signs Date Time Temp Pulse Resp B/P (MAP) Pulse Ox O2 Delivery O2 Flow Rate FiO2 01/04/19 14:00 98.2 92 18 115/57 (76) 97 Laboratory Data Labs 24H Laboratory Tests 2 01/03/19 19:41: Urine Color YELLOW, Urine Appearance HAZY, Urine pH 7.0, Urine Specific [place] 1.016, Urine Protein NEGATIVE, Urine Glucose (UA) NEGATIVE, Urine Ketones NEGATIVE, Urine Blood 1+H, Urine Nitrite NEGATIVE, Urine Bilirubin NEGATIVE, Urine Urobilinogen 2.0H, Urine Leukocyte Esterase NEGATIVE, Urine WBC (Auto) 3, Urine RBC (Auto) 4H, Urine Hyaline Casts (Auto) 0, Urine Bacteria (Auto) NEGATIVE, Urine Squamous Epithelial Cells 1, Urine Amorphous Sediment SMALLH, Urine Sperm (Auto) Microbiology Microbiology 12/30/18 Blood Culture - Final, Complete NO GROWTH AFTER 5 DAYS 12/30/18 Blood Culture - Final, Complete NO GROWTH AFTER 5 DAYS 01/04/19 Stool Occult Blood (STACEY) - Final, Complete Current Medications Current Medications Current Medications Medications (Trade) Dose Ordered Sig/Kevin Route PRN Reason Start Time Stop Time Status Last Admin Dose Admin Acetaminophen (Tylenol Tab) 650 mg Q4HP PRN PO fever/MILD PAIN (PS 1-4) 12/29/18 12:15 01/02/19 16:56 DC Acetaminophen (Tylenol Tab) 1,000 mg TID PO 01/02/19 21:00 01/04/19 07:52 Albuterol/ Ipratropium (Duoneb (Ipr 0.5mg/Alb 2.5mg)) 3 ml RTID NEB 12/29/18 14:00 12/30/18 07:43 DC 12/30/18 07:49 Apixaban (Eliquis) 5 mg BID PO 01/03/19 09:00 01/04/19 07:52 Apixaban (Eliquis) 10 mg BID PO 12/29/18 21:00 01/02/19 23:00 DC 01/02/19 21:21 Aspirin (Aspirin Chewable) 81 mg DAILY PO 12/30/18 09:00 01/04/19 07:51 Atorvastatin Calcium (Lipitor) 80 mg QHS PO 12/29/18 21:00 01/03/19 20:21 Bacitracin/ Polymyxin B Sulfate (Polysporin Top Oint) 1 dose BID TOP 01/01/19 21:00 01/03/19 20:22 Docusate Sodium (Colace) 100 mg BID PO 12/29/18 21:00 12/30/18 12:13 DC 12/30/18 10:15 Docusate Sodium (Colace) 100 mg TID PO 12/30/18 16:00 01/03/19 20:20 Doxycycline Hyclate (Vibramycin) 100 mg BID PO 01/01/19 15:45 01/04/19 07:52 Gabapentin (Neurontin) 300 mg TID PO 12/29/18 16:00 01/02/19 16:54 DC 01/02/19 08:36 Gabapentin (Neurontin) 400 mg TID PO 01/02/19 21:00 01/04/19 07:52 Home Med (Med Rec Complete!) ASDIRECTED XX 12/29/18 13:15 12/29/18 13:16 DC Ipratropium [place] (Atrovent 0.02%) 0.25 mg RTID INH 12/30/18 08:00 01/02/19 16:54 DC 01/01/19 20:08 Magnesium Hydroxide (Milk Of Magnesia) 30 ml DAILYPRN PRN PO CONSTIPATION 12/30/18 11:45 01/01/19 04:29 Metoprolol Tartrate (Lopressor) 25 mg BID PO 01/04/19 21:00 Metoprolol Tartrate (Lopressor) 50 mg BID PO 12/29/18 21:00 01/04/19 09:25 DC 01/04/19 07:52 Nitroglycerin (Nitrostat (1/ 200)) 0.3 mg Q5MP PRN SL CHEST PAIN 12/29/18 12:15 Oxycodone HCl (Roxicodone, Oxyir) 5 mg Q4HP PRN PO PAIN 12/29/18 12:15 Oxycodone HCl (Roxicodone, Oxyir) 10 mg Q6HP PRN PO SEVERE PAIN (PS 8-10) 12/29/18 12:15 01/02/19 16:56 DC 01/02/19 08:37 Pantoprazole Sodium (Protonix) 40 mg DAILY PO 12/29/18 09:00 01/04/19 07:52 Potassium Chloride (Micro-K Extencaps) 20 meq DAILY PO 12/30/18 09:00 01/01/19 19:40 DC 01/01/19 08:42 Senna (Senokot) 1 tab QHS PO 12/29/18 21:00 01/03/19 20:20 Temazepam (Restoril) 7.5 mg QHSP PRN PO INSOMNIA 12/30/18 12:00 01/03/19 21:46 ALONZO GURROLA MD Jan 04, 2019 15:49
[2019-01-04] MEDS ORDERED: SLF 3 ML SYR IV PRN (17:00)
[2019-01-04 20:00] VITALS: BP 122/75
[2019-01-04] MEDS: METOPROLOL TART 25 MG TABLET PO SCH (20:47)
[2019-01-04] MEDS: ATORVASTATIN 20 MG TAB PO SCH (20:48)
[2019-01-04] MEDS: SENNA 8.6 MG TAB (SENOKOT) PO SCH (20:48)
[2019-01-04] MEDS: TEMAZEPAM 7.5 MG CAP PO PRN (20:56)
[2019-01-04] MEDS: SLF 3 ML SYR IV SCH (22:00)
[2019-01-05] MEDS: SLF 3 ML SYR IV SCH ×3 (06:00→22:00)
[2019-01-05 07:42] LABS: BASO # 0.1 10^3/uL (0.0-0.2); BASO % 1.1 % (0.0-1.0); EOS # 0.5 10^3/uL (0.0-0.50); HEMATOCRIT 32.1 % (36.0-47.0); HEMOGLOBIN 10.3 g/dl (12.0-15.5); LYMPH # 1.7 10^3/uL (1.5-4.5); LYMPH % 20.8 % (24.0-44.0); MEAN CORPUSCULAR HEMOGLOBIN 31.1 pg (27.0-33.0); MEAN CORPUSCULAR HGB CONC 32.1 g/dl (32.0-36.5); MONO # 0.8 10^3/uL (0.0-0.8); MONO % 9.3 % (0.0-5.0); NEUTROPHILS # 5.3 10^3/uL (1.8-7.7); NEUTROPHILS % 62.6 % (36.0-66.0); PLATELET COUNT, AUTOMATED 762 10^3/uL (150-450); RED BLOOD COUNT 3.31 10^6/uL (4.00-5.40); WHITE BLOOD COUNT 8.4 10^3/uL (4.0-10.0)
[2019-01-05] MEDS: ASPIRIN 81 MG CHEW TABLET PO SCH (08:36)
[2019-01-05] MEDS: DOCUSATE SODIUM 100 MG CAP PO SCH ×3 (08:37→22:06)
[2019-01-05] MEDS: METOPROLOL TART 25 MG TABLET PO SCH ×2 (08:37→22:07)
[2019-01-05] MEDS: GABAPENTIN 400 MG CAP PO SCH ×3 (08:37→22:06)
[2019-01-05] MEDS: APIXABAN 5 MG TAB (ELIQUIS) PO SCH ×2 (08:37→22:06)
[2019-01-05] MEDS: DOXYCYCLINE HYCLATE 100 MG TAB PO SCH ×2 (08:37→22:06)
[2019-01-05] MEDS: ACETAMINOPHEN 500 MG TAB PO SCH ×3 (08:37→22:06)
[2019-01-05] MEDS: PANTOPRAZOLE 40MG TAB (PROTONIX) PO SCH (08:37)
[2019-01-05] MEDS: POLYSPORIN TOPICAL OINTMENT 15GM TOP SCH ×2 (08:38→21:00)
--- NOTE | 2019-01-05 09:09 | ECGEPIP ---
[facility] Test Date: 2019-01-03 Pat Name: JORDYN MURILLO Department: Room: [place] [address] Gender: Female Extrusion Former: NURA : 1960 Requested By: ALONZO GURROLA Order Number: [id number] Reading MD: Milton Conner Measurements Intervals [place] Rate: 80 P: 73 NV: 148 QRS: -8 QRSD: 81 T: 228 QT: 431 QTc: 499 Interpretive Statements SINUS RHYTHM WITH SINUS ARRHYTHMIA SEPTAL INFARCT, RECENT DIFFUSE T WAVE INVERSIONS SINCE 12/13/18 T WAVE ABNORMALITIES ARE MORE PRONOUNCED Electronically Signed on 01-05-2019 9:09:08 EDT by Milton Conner
[2019-01-05 20:00] VITALS: BP 122/73
[2019-01-05] MEDS: ATORVASTATIN 20 MG TAB PO SCH (22:06)
[2019-01-05] MEDS: TEMAZEPAM 7.5 MG CAP PO PRN (22:06)
[2019-01-05] MEDS: SENNA 8.6 MG TAB (SENOKOT) PO SCH (22:06)
[2019-01-05] MEDS: NYSTATIN CREAM 15 GM EXT SCH (22:07)
[2019-01-06 05:43] VITALS: BP 131/75
[2019-01-06] MEDS: ASPIRIN 81 MG CHEW TABLET PO SCH (10:14)
[2019-01-06] MEDS: PANTOPRAZOLE 40MG TAB (PROTONIX) PO SCH (10:15)
[2019-01-06] MEDS: ACETAMINOPHEN 500 MG TAB PO SCH ×3 (10:15→22:30)
[2019-01-06] MEDS: APIXABAN 5 MG TAB (ELIQUIS) PO SCH ×2 (10:16→22:29)
[2019-01-06] MEDS: DOCUSATE SODIUM 100 MG CAP PO SCH ×3 (10:16→22:30)
[2019-01-06] MEDS: DOXYCYCLINE HYCLATE 100 MG TAB PO SCH ×2 (10:16→22:32)
[2019-01-06] MEDS: GABAPENTIN 400 MG CAP PO SCH ×3 (10:16→22:31)
[2019-01-06] MEDS: NYSTATIN CREAM 15 GM EXT SCH ×2 (10:19→22:33)
[2019-01-06] MEDS: METOPROLOL TART 25 MG TABLET PO SCH ×2 (10:19→22:31)
[2019-01-06] MEDS: POLYSPORIN TOPICAL OINTMENT 15GM TOP SCH ×2 (10:20→22:34)
[2019-01-06 14:00] VITALS: BP 103/56
[2019-01-06 22:00] VITALS: BP 116/60
[2019-01-06] MEDS: SENNA 8.6 MG TAB (SENOKOT) PO SCH (22:30)
[2019-01-06] MEDS: ATORVASTATIN 20 MG TAB PO SCH (22:30)
[2019-01-07 06:00] VITALS: BP 133/80
[2019-01-07] MEDS: POLYSPORIN TOPICAL OINTMENT 15GM TOP SCH ×2 (09:00→21:00)
[2019-01-07] MEDS: DOCUSATE SODIUM 100 MG CAP PO SCH ×3 (09:20→22:35)
[2019-01-07] MEDS: PANTOPRAZOLE 40MG TAB (PROTONIX) PO SCH (09:21)
[2019-01-07] MEDS: ASPIRIN 81 MG CHEW TABLET PO SCH (09:21)
[2019-01-07] MEDS: GABAPENTIN 400 MG CAP PO SCH ×3 (09:21→22:35)
[2019-01-07] MEDS: APIXABAN 5 MG TAB (ELIQUIS) PO SCH ×2 (09:21→22:34)
[2019-01-07] MEDS: ACETAMINOPHEN 500 MG TAB PO SCH ×3 (09:21→22:35)
[2019-01-07] MEDS: DOXYCYCLINE HYCLATE 100 MG TAB PO SCH (09:21)
[2019-01-07] MEDS: METOPROLOL TART 25 MG TABLET PO SCH ×2 (09:22→22:36)
[2019-01-07] MEDS: NYSTATIN CREAM 15 GM EXT SCH ×2 (09:22→22:36)
[2019-01-07 14:00] VITALS: BP 136/85
[2019-01-07 20:00] VITALS: BP 146/77
[2019-01-07] MEDS: SENNA 8.6 MG TAB (SENOKOT) PO SCH (21:00)
[2019-01-07] MEDS: ATORVASTATIN 20 MG TAB PO SCH (22:34)
[2019-01-07] MEDS: TEMAZEPAM 7.5 MG CAP PO PRN (22:34)
[2019-01-08 06:00] VITALS: BP 148/84
[2019-01-08] MEDS: ASPIRIN 81 MG CHEW TABLET PO SCH (09:28)
[2019-01-08] MEDS: DOCUSATE SODIUM 100 MG CAP PO SCH ×3 (09:28→21:32)
[2019-01-08] MEDS: GABAPENTIN 400 MG CAP PO SCH ×3 (09:28→21:32)
[2019-01-08] MEDS: ACETAMINOPHEN 500 MG TAB PO SCH ×3 (09:28→21:33)
[2019-01-08] MEDS: APIXABAN 5 MG TAB (ELIQUIS) PO SCH ×2 (09:28→21:32)
[2019-01-08] MEDS: PANTOPRAZOLE 40MG TAB (PROTONIX) PO SCH (09:28)
[2019-01-08] MEDS: POLYSPORIN TOPICAL OINTMENT 15GM TOP SCH ×2 (09:29→21:34)
[2019-01-08] MEDS: NYSTATIN CREAM 15 GM EXT SCH ×2 (09:29→21:33)
[2019-01-08] MEDS: METOPROLOL TART 25 MG TABLET PO SCH ×2 (09:29→21:33)
[2019-01-08 14:00] VITALS: BP 138/81
[2019-01-08 21:30] VITALS: BP 158/98
[2019-01-08] MEDS: SENNA 8.6 MG TAB (SENOKOT) PO SCH (21:32)
[2019-01-08] MEDS: ATORVASTATIN 20 MG TAB PO SCH (21:32)
[2019-01-08] MEDS: TEMAZEPAM 7.5 MG CAP PO PRN (21:33)
[2019-01-09 06:00] VITALS: BP 150/86
[2019-01-09] MEDS: POLYSPORIN TOPICAL OINTMENT 15GM TOP SCH ×2 (09:00→21:00)
[2019-01-09] MEDS: NYSTATIN CREAM 15 GM EXT SCH ×2 (09:00→21:44)
[2019-01-09] MEDS: DOCUSATE SODIUM 100 MG CAP PO SCH ×3 (09:09→21:43)
[2019-01-09] MEDS: ASPIRIN 81 MG CHEW TABLET PO SCH (09:09)
[2019-01-09] MEDS: GABAPENTIN 400 MG CAP PO SCH ×3 (09:09→21:43)
[2019-01-09] MEDS: ACETAMINOPHEN 500 MG TAB PO SCH ×3 (09:09→21:44)
[2019-01-09] MEDS: PANTOPRAZOLE 40MG TAB (PROTONIX) PO SCH (09:09)
[2019-01-09] MEDS: APIXABAN 5 MG TAB (ELIQUIS) PO SCH ×2 (09:09→21:43)
[2019-01-09] MEDS: METOPROLOL TART 25 MG TABLET PO SCH ×2 (09:10→21:43)
[2019-01-09 14:00] VITALS: BP 131/74
[2019-01-09 20:00] VITALS: BP 126/64
[2019-01-09] MEDS: SENNA 8.6 MG TAB (SENOKOT) PO SCH (21:42)
[2019-01-09] MEDS: ATORVASTATIN 20 MG TAB PO SCH (21:43)
[2019-01-09] MEDS: MIRTAZAPINE 7.5MG PER 1/2 TABLET PO SCH (21:44)
--- NOTE | 2019-01-09 21:55 | IPN ---
DATE OF SERVICE: 01/09/2019 She is status post left above-knee amputation (AKA) and right lower extremity fasciotomy. She had a non-ST elevation myocardial infarction (non-STEMI). She was in bed, she was doing well. She had gotten room privileges. She is looking forward to discharge. She is having difficulty finding a place for discharge. Department of [employer] Reg[employer] Repairer Helper (DSS) and patient and family services (PFS) are helping her. Wound VAC is in place, functioning well. She had no specific complaints. OBJECTIVE: Blood pressure 131/74, pulse 90, respirations 18, temperature 97. The patient is alert and oriented. Pharynx: Tongue and gums pink and moist. Tongue is midline. Neck is supple without lymphadenopathy. Chest is clear to auscultation. Heart is regular. Abdomen benign. Bowel sounds are positive. IMPRESSION/PLAN: Status post left above-knee amputation. Thrombus causing ischemia. Continue with aspirin, Eliquis, atorvastatin. Hypertension. Blood pressure controlled. Tobacco abuse. Tolerating nicotine abstinence. Chronic obstructive pulmonary disease (COPD), stable. Right leg fasciotomy. Wound VAC is in place. No redness.
[2019-01-10 06:00] VITALS: BP 135/84
[2019-01-10] MEDS: METOPROLOL TART 25 MG TABLET PO SCH ×2 (08:44→22:32)
[2019-01-10] MEDS: ACETAMINOPHEN 500 MG TAB PO SCH ×3 (08:44→22:33)
[2019-01-10] MEDS: PANTOPRAZOLE 40MG TAB (PROTONIX) PO SCH (08:44)
[2019-01-10] MEDS: DOCUSATE SODIUM 100 MG CAP PO SCH ×3 (08:44→22:33)
[2019-01-10] MEDS: APIXABAN 5 MG TAB (ELIQUIS) PO SCH ×2 (08:45→22:33)
[2019-01-10] MEDS: POLYSPORIN TOPICAL OINTMENT 15GM TOP SCH ×2 (08:45→22:30)
[2019-01-10] MEDS: NYSTATIN CREAM 15 GM EXT SCH ×2 (08:45→22:34)
[2019-01-10] MEDS: GABAPENTIN 400 MG CAP PO SCH ×3 (08:45→22:33)
[2019-01-10] MEDS: ASPIRIN 81 MG CHEW TABLET PO SCH (08:45)
--- NOTE | 2019-01-10 12:07 | IPNPDOC ---
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 She states she feels much less dizzy following blood transfusion. REVIEW OF SYSTEMS: The following is a completed review of systems and has been reviewed. Review of systems otherwise unremarkable. PAIN: Patient self reports right calf pain EYES: No recent vision changes EARS, NOSE, & THROAT: No throat pain, or dysphagia, or rhinorrhea CARDIOVASCULAR: Denies chest pain or palpitations PULMONARY: Denies shortness of breath GASTROINTESTINAL: Denies constipation/diarrhea GENITOURINARY: denies dysuria MUSCULOSKELETAL: left aka and right fasciotomies NEUROLOGICAL:no tremor or seizure activity HEMATOLOGICAL: +PAD SKIN: left aka incision and right calf fasciotomies PSYCHIATRIC: Unremarkable All other review of systems found to be negative. PHYSICAL EXAMINATION: VITAL SIGNS: Please see below. GENERAL: Pleasant and cooperative. No acute distress. HEENT: PERRL. Extraocular movements intact. Clear conjunctiva CARDIOVASCULAR: Regular rate and rhythm. No murmurs, rubs, or gallops LUNGS: Clear to auscultation bilaterally. No wheezes. No rhonchi ABDOMEN: Soft, nontender, nondistended. Positive bowel sounds. Normal active [place] wel sounds NEUROLOGICAL: Alert and oriented times three. Cranial nerves II through XII grossly intact. Sensation grossly intact EXTREMITIES: 5\5 strength bilateral upper extremities. 5-\5 strength right hip flexion, knee extension, 3/5 ankle DF and EHL, 5-/5 strength in left hip flexion extremity SKIN: left residual limb c/d/i without erythema or induration right calf fasciotomies c/d/i with healthy appearing muscle tissue bilateral groin incisions, scant drainage on the left Buttock and sacral rash erythemaous 58F pmh PAD presents with left AKA and right LE fasciotomy. PLAN: 1. Rehab: PT-strengthen /maintain ROM/stretch bilat LE- prevent left hip flexion and abduction contracture, limit weight bearing to RLE for transfers, otherwise aim for NWB, approaching Mod-I from wheelchair level OT- strengthen /maintain ROM/stretch bilat UE 2. Neuro: stable, avoid delirogenic meds 3. Cardiac: s/p recent NSTEMI with cath positive for takotsubo [place], EF 65% -LV thrombus with emboli in the aorta, iliac, and bilateral LE s/p embolectomies with right lower leg fasciotomy and left AKA, c/u ASA and Eliquis -has f/u with Dr. Forrest 01/10/19 1:30 pm -will need outpatient hypercoagulation work-up -HTN, -f/u with Dr. Yeung as outpatient, c/u on lower villatoro of beta-ana -HLD, c/u statin 4. Resp: pmh COPD, current smoker, c/u Duonebs prn, smoking cessation education 5. Pain: oxycodone, will increase gabapentin to 400 TID for neurpathic pain and monitor, c/u tylenol 6. Renal: recent angiogram suspicious for renal emboli, will monitor kidney function and consult renal prn 7. GI ppx: protonix, pmh hemorrhoids, FOBT negative 8. DVT ppx: Eliquis 9. SKin: wound vac to be changed [id number], bacitracin to bilateral groin incisions and cover with gauze- healing well -left AKA incision slightly more erythematous than on admission and right fasciotomy with mild erythema yen-wound, c/u Doxycycline to cover MRSA -nystatin cream to buttock for what appears to be a fungal infection -leukocytosis improved and CRP and ESR trending down 10/ Hyperkalemia 01/01/19 s/p kayexealte improved, d/c'd K, c/u to monitor 11. Heme: postop anemia s/p 1 unit rbcs with resolution of symptoms, negative FOBT 12. Insomnia- Temazepam 9. Dispo: 01/16/19 to [facility] housing Allergies Coded Allergies: No Known Allergies (Unverified , 11/24/18) Vital Signs Vital Signs Date Time Temp Pulse Resp B/P (MAP) Pulse Ox O2 Delivery O2 Flow Rate FiO2 01/10/19 08:44 80 135/84 01/10/19 06:00 97.7 18 97 01/05/19 06:00 126.0 72 Microbiology Microbiology 01/04/19 Stool Occult Blood (STACEY) - Final, Complete Current Medications Current Medications Current Medications Medications (Trade) Dose Ordered Sig/Kevin Route PRN Reason Start Time Stop Time Status Last Admin Dose Admin Acetaminophen (Tylenol Tab) 650 mg Q4HP PRN PO fever/MILD PAIN (PS 1-4) 12/29/18 12:15 01/02/19 16:56 DC Acetaminophen (Tylenol Tab) 1,000 mg TID PO 01/02/19 21:00 01/10/19 08:44 Albuterol/ Ipratropium (Duoneb (Ipr 0.5mg/Alb 2.5mg)) 3 ml RTID NEB 12/29/18 14:00 12/30/18 07:43 DC 12/30/18 07:49 Apixaban (Eliquis) 5 mg BID PO 01/03/19 09:00 01/10/19 08:45 Apixaban (Eliquis) 10 mg BID PO 12/29/18 21:00 01/02/19 23:00 DC 01/02/19 21:21 Aspirin (Aspirin Chewable) 81 mg DAILY PO 12/30/18 09:00 01/10/19 08:45 Atorvastatin Calcium (Lipitor) 80 mg QHS PO 12/29/18 21:00 01/09/19 21:43 Bacitracin/ Polymyxin B Sulfate (Polysporin Top Oint) 1 dose BID TOP 01/01/19 21:00 01/08/19 21:34 Docusate Sodium (Colace) 100 mg BID PO 12/29/18 21:00 12/30/18 12:13 DC 12/30/18 10:15 Docusate Sodium (Colace) 100 mg TID PO 12/30/18 16:00 01/10/19 08:44 Doxycycline Hyclate (Vibramycin) 100 mg BID PO 01/01/19 15:45 01/07/19 14:34 DC 01/07/19 09:21 Gabapentin (Neurontin) 300 mg TID PO 12/29/18 16:00 01/02/19 16:54 DC 01/02/19 08:36 Gabapentin (Neurontin) 400 mg TID PO 01/02/19 21:00 01/10/19 08:45 Home Med (Med Rec Complete!) ASDIRECTED XX 12/29/18 13:15 12/29/18 13:16 DC Ipratropium [place] (Atrovent 0.02%) 0.25 mg RTID INH 12/30/18 08:00 01/02/19 16:54 DC 01/01/19 20:08 Magnesium Hydroxide (Milk Of Magnesia) 30 ml DAILYPRN PRN PO CONSTIPATION 12/30/18 11:45 01/01/19 04:29 Metoprolol Tartrate (Lopressor) 25 mg BID PO 01/04/19 21:00 01/10/19 08:44 Metoprolol Tartrate (Lopressor) 50 mg BID PO 12/29/18 21:00 01/04/19 09:25 DC 01/04/19 07:52 Mirtazapine (Remeron) 7.5 mg QHS PO 01/09/19 21:00 01/09/19 21:44 Miscellaneous (Unresolved Clarification Entry) SEE LABEL COMMENTS DAILY XX 01/09/19 09:00 01/10/19 07:26 DC Nitroglycerin (Nitrostat (1/ 200)) 0.3 mg Q5MP PRN SL CHEST PAIN 12/29/18 12:15 Nystatin (Mycostatin) 1 dose BID EXT 01/05/19 21:00 01/10/19 08:45 Oxycodone HCl (Roxicodone, Oxyir) 5 mg Q4HP PRN PO PAIN 12/29/18 12:15 01/09/19 16:20 DC Oxycodone HCl (Roxicodone, Oxyir) 10 mg Q6HP PRN PO SEVERE PAIN (PS 8-10) 12/29/18 12:15 01/02/19 16:56 DC 01/02/19 08:37 Pantoprazole Sodium (Protonix) 40 mg DAILY PO 12/29/18 09:00 01/10/19 08:44 Potassium Chloride (Micro-K Extencaps) 20 meq DAILY PO 12/30/18 09:00 01/01/19 19:40 DC 01/01/19 08:42 Senna (Senokot) 1 tab QHS PO 12/29/18 21:00 01/09/19 21:42 Sodium Chloride (Saline Lock Flush) 2 ml ASDIRECTED PRN IV SEE LABEL COMMENTS 01/04/19 17:00 01/06/19 04:44 DC Sodium Chloride (Saline Lock Flush) 2 ml SLF IV 01/04/19 22:00 01/06/19 04:44 DC Temazepam (Restoril) 7.5 mg QHSP PRN PO INSOMNIA 8/17/19 12:00 01/08/19 21:33 ALONZO GURROLA MD Jan 10, 2019 12:07
--- NOTE | 2019-01-10 12:09 | IPNPDOC ---
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 she would like something extra to help with sleep. REVIEW OF SYSTEMS: The following is a completed review of systems and has been reviewed. Review of systems otherwise unremarkable. PAIN: Patient self reports right calf pain EYES: No recent vision changes EARS, NOSE, & THROAT: No throat pain, or dysphagia, or rhinorrhea CARDIOVASCULAR: Denies chest pain or palpitations PULMONARY: Denies shortness of breath GASTROINTESTINAL: Denies constipation/diarrhea GENITOURINARY: denies dysuria MUSCULOSKELETAL: left aka and right fasciotomies NEUROLOGICAL:no tremor or seizure activity HEMATOLOGICAL: +PAD SKIN: left aka incision and right calf fasciotomies PSYCHIATRIC: Unremarkable All other review of systems found to be negative. PHYSICAL EXAMINATION: VITAL SIGNS: Please see below. GENERAL: Pleasant and cooperative. No acute distress. HEENT: PERRL. Extraocular movements intact. Clear conjunctiva CARDIOVASCULAR: Regular rate and rhythm. No murmurs, rubs, or gallops LUNGS: Clear to auscultation bilaterally. No wheezes. No rhonchi ABDOMEN: Soft, nontender, nondistended. Positive bowel sounds. Normal active bowel sounds NEUROLOGICAL: Alert and oriented times three. Cranial nerves II through XII grossly intact. Sensation grossly intact EXTREMITIES: 5\5 strength bilateral upper extremities. 5-\5 strength right hip flexion, knee extension, 3/5 ankle DF and EHL, 5-/5 strength in left hip flexion extremity SKIN: left residual limb c/d/i without erythema or induration right calf fasciotomies c/d/i with healthy appearing muscle tissue bilateral groin incisions, scant drainage on the left Buttock and sacral rash erythemaous 58F pmh PAD presents with left AKA and right LE fasciotomy. PLAN: 1. Rehab: PT-strengthen /maintain ROM/stretch bilat LE- prevent left hip flexion and abduction contracture, limit weight bearing to RLE for transfers, otherwise aim for NWB, approaching Mod-I from wheelchair level OT- strengthen /maintain ROM/stretch bilat UE 2. Neuro: stable, avoid delirogenic meds 3. Cardiac: s/p recent NSTEMI with cath positive for takotsubo [place], EF 65% -LV thrombus with emboli in the aorta, iliac, and bilateral LE s/p embolectomies with right lower leg fasciotomy and left AKA, c/u ASA and Eliquis -has f/u with Dr. Forrest 01/10/19 1:30 pm-will call to reschedule -will need outpatient hypercoagulation work-up -HTN, -f/u with Dr. Yeung as outpatient, c/u on lower villatoro of beta-ana -HLD, c/u statin 4. Resp: pmh COPD, current smoker, c/u Duonebs prn, smoking cessation education 5. Pain: oxycodone, will increase gabapentin to 400 TID for neurpathic pain and monitor, c/u tylenol 6. Renal: recent angiogram suspicious for renal emboli, will monitor kidney function and consult renal prn 7. GI ppx: protonix, pmh hemorrhoids, FOBT negative 8. DVT ppx: Eliquis 9. SKin: wound vac to be changed [id number], bacitracin to bilateral groin incisions and cover with gauze- healing well -left AKA incision slightly more erythematous than on admission and right fasciotomy with mild erythema yen-wound, c/u Doxycycline to cover MRSA -nystatin cream to buttock for what appears to be a fungal infection -leukocytosis improved and CRP and ESR trending down 10/ Hyperkalemia 01/01/19 s/p kayexealte improved, d/c'd K, c/u to monitor 11. Heme: postop anemia s/p 1 unit rbcs with resolution of symptoms, negative FOBT 12. Insomnia- Temazepam, will add restoril 7.5mg tonight 9. Dispo: 01/16/19 to [facility] housing Allergies Coded Allergies: No Known Allergies (Unverified , 11/24/18) Vital Signs Vital Signs Date Time Temp Pulse Resp B/P (MAP) Pulse Ox O2 Delivery O2 Flow Rate FiO2 01/10/19 08:44 80 135/84 01/10/19 06:00 97.7 18 97 01/05/19 06:00 126.0 72 Microbiology Microbiology 01/04/19 Stool Occult Blood (STACEY) - Final, Complete Current Medications Current Medications Current Medications Medications (Trade) Dose Ordered Sig/Kevin Route PRN Reason Start Time Stop Time Status Last Admin Dose Admin Acetaminophen (Tylenol Tab) 650 mg Q4HP PRN PO fever/MILD PAIN (PS 1-4) 12/29/18 12:15 01/02/19 16:56 DC Acetaminophen (Tylenol Tab) 1,000 mg TID PO 01/02/19 21:00 01/10/19 08:44 Albuterol/ Ipratropium (Duoneb (Ipr 0.5mg/Alb 2.5mg)) 3 ml RTID NEB 12/29/18 14:00 12/30/18 07:43 DC 12/30/18 07:49 Apixaban (Eliquis) 5 mg BID PO 01/03/19 09:00 01/10/19 08:45 Apixaban (Eliquis) 10 mg BID PO 12/29/18 21:00 01/02/19 23:00 DC 01/02/19 21:21 Aspirin (Aspirin Chewable) 81 mg DAILY PO 12/30/18 09:00 01/10/19 08:45 Atorvastatin Calcium (Lipitor) 80 mg QHS PO 12/29/18 21:00 01/09/19 21:43 Bacitracin/ Polymyxin B Sulfate (Polysporin Top Oint) 1 dose BID TOP 01/01/19 21:00 01/08/19 21:34 Docusate Sodium (Colace) 100 mg BID PO 12/29/18 21:00 12/30/18 12:13 DC 12/30/18 10:15 Docusate Sodium (Colace) 100 mg TID PO 12/30/18 16:00 01/10/19 08:44 Doxycycline Hyclate (Vibramycin) 100 mg BID PO 01/01/19 15:45 01/07/19 14:34 DC 01/07/19 09:21 Gabapentin (Neurontin) 300 mg TID PO 12/29/18 16:00 01/02/19 16:54 DC 01/02/19 08:36 Gabapentin (Neurontin) 400 mg TID PO 01/02/19 21:00 01/10/19 08:45 Home Med (Med Rec Complete!) ASDIRECTED XX 12/29/18 13:15 12/29/18 13:16 DC Ipratropium [place] (Atrovent 0.02%) 0.25 mg RTID INH 12/30/18 08:00 01/02/19 16:54 DC 01/01/19 20:08 Magnesium Hydroxide (Milk Of Magnesia) 30 ml DAILYPRN PRN PO CONSTIPATION 12/30/18 11:45 01/01/19 04:29 Metoprolol Tartrate (Lopressor) 25 mg BID PO 01/04/19 21:00 01/10/19 08:44 Metoprolol Tartrate (Lopressor) 50 mg BID PO 12/29/18 21:00 01/04/19 09:25 DC 01/04/19 07:52 Mirtazapine (Remeron) 7.5 mg QHS PO 01/09/19 21:00 01/09/19 21:44 Miscellaneous (Unresolved Clarification Entry) SEE LABEL COMMENTS DAILY XX 01/09/19 09:00 01/10/19 07:26 DC Nitroglycerin (Nitrostat (1/ 200)) 0.3 mg Q5MP PRN SL CHEST PAIN 12/29/18 12:15 Nystatin (Mycostatin) 1 dose BID EXT 01/05/19 21:00 01/10/19 08:45 Oxycodone HCl (Roxicodone, Oxyir) 5 mg Q4HP PRN PO PAIN 12/29/18 12:15 01/09/19 16:20 DC Oxycodone HCl (Roxicodone, Oxyir) 10 mg Q6HP PRN PO SEVERE PAIN (PS 8-10) 12/29/18 12:15 01/02/19 16:56 DC 01/02/19 08:37 Pantoprazole Sodium (Protonix) 40 mg DAILY PO 12/29/18 09:00 01/10/19 08:44 Potassium Chloride (Micro-K Extencaps) 20 meq DAILY PO 12/30/18 09:00 01/01/19 19:40 DC 01/01/19 08:42 Senna (Senokot) 1 tab QHS PO 12/29/18 21:00 01/09/19 21:42 Sodium Chloride (Saline Lock Flush) 2 ml ASDIRECTED PRN IV SEE LABEL COMMENTS 01/04/19 17:00 01/06/19 04:44 DC Sodium Chloride (Saline Lock Flush) 2 ml SLF IV 01/04/19 22:00 01/06/19 04:44 DC Temazepam (Restoril) 7.5 mg QHSP PRN PO INSOMNIA 12/30/18 12:00 01/08/19 21:33 ALONZO GURROLA MD Jan 10, 2019 12:09
--- NOTE | 2019-01-10 12:09 | IPNPDOC ---
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 Patient reporting her buttock is less itchy now since using the nystatin cream more regularly. REVIEW OF SYSTEMS: The following is a completed review of systems and has been reviewed. Review of systems otherwise unremarkable. PAIN: Patient self reports right calf pain EYES: No recent vision changes EARS, NOSE, & THROAT: No throat pain, or dysphagia, or rhinorrhea CARDIOVASCULAR: Denies chest pain or palpitations PULMONARY: Denies shortness of breath GASTROINTESTINAL: Denies constipation/diarrhea GENITOURINARY: denies dysuria MUSCULOSKELETAL: left aka and right fasciotomies NEUROLOGICAL:no tremor or seizure activity HEMATOLOGICAL: +PAD SKIN: left aka incision and right calf fasciotomies PSYCHIATRIC: Unremarkable All other review of systems found to be negative. PHYSICAL EXAMINATION: VITAL SIGNS: Please see below. GENERAL: Pleasant and cooperative. No acute distress. HEENT: PERRL. Extraocular movements intact. Clear conjunctiva CARDIOVASCULAR: Regular rate and rhythm. No murmurs, rubs, or gallops LUNGS: Clear to auscultation bilaterally. No wheezes. No rhonchi ABDOMEN: Soft, nontender, nondistended. Positive bowel sounds. Normal active bowel sounds NEUROLOGICAL: Alert and oriented times three. Cranial nerves II through XII grossly intact. Sensation grossly intact EXTREMITIES: 5\5 strength bilateral upper extremities. 5-\5 strength right hip flexion, knee extension, 3/5 ankle DF and EHL, 5-/5 strength in left hip flexion extremity SKIN: left residual limb c/d/i without erythema or induration right calf fasciotomies c/d/i with healthy appearing muscle tissue bilateral groin incisions, scant drainage on the left Buttock and sacral rash erythemaous 58F pmh PAD presents with left AKA and right LE fasciotomy. PLAN: 1. Rehab: PT-strengthen /maintain ROM/stretch bilat LE- prevent left hip flexion and abduction contracture, limit weight bearing to RLE for transfers, otherwise aim for NWB, approaching Mod-I from wheelchair level OT- strengthen /maintain ROM/stretch bilat UE 2. Neuro: stable, avoid delirogenic meds 3. Cardiac: s/p recent NSTEMI with cath positive for takotsubo [place], EF 65% -LV thrombus with emboli in the aorta, iliac, and bilateral LE s/p embolectomies with right lower leg fasciotomy and left AKA, c/u ASA and Eliquis -has f/u with Dr. Forrest 01/22/19 1:45 pm- -will need outpatient hypercoagulation work-up -HTN, -f/u with Dr. Yeung as outpatient, c/u on lower villatoro of beta-ana -HLD, c/u statin 4. Resp: pmh COPD, current smoker, c/u Duonebs prn, smoking cessation education 5. Pain: oxycodone, will increase gabapentin to 400 TID for neurpathic pain and monitor, c/u tylenol 6. Renal: recent angiogram suspicious for renal emboli, will monitor kidney function and consult renal prn 7. GI ppx: protonix, pmh hemorrhoids, FOBT negative 8. DVT ppx: Eliquis 9. SKin: wound vac to be changed [id number], bacitracin to bilateral groin incisions and cover with gauze- healing well -left AKA incision slightly more erythematous than on admission and right fasciotomy with mild erythema yen-wound, c/u Doxycycline to cover MRSA -nystatin cream to buttock for what appears to be a fungal infection -leukocytosis improved and CRP and ESR trending down 10/ Hyperkalemia 01/01/19 s/p kayexealte improved, d/c'd K, c/u to monitor 11. Heme: postop anemia s/p 1 unit rbcs with resolution of symptoms, negative FOBT 12. Insomnia- Temazepam, c/u restoril 7.5mg 9. Dispo: 01/16/19 to [facility] housing Allergies Coded Allergies: No Known Allergies (Unverified , 11/24/18) Vital Signs Vital Signs Date Time Temp Pulse Resp B/P (MAP) Pulse Ox O2 Delivery O2 Flow Rate FiO2 01/10/19 08:44 80 135/84 01/10/19 06:00 97.7 18 97 01/05/19 06:00 126.0 72 Microbiology Microbiology 01/04/19 Stool Occult Blood (STACEY) - Final, Complete Current Medications Current Medications Current Medications Medications (Trade) Dose Ordered Sig/Kevin Route PRN Reason Start Time Stop Time Status Last Admin Dose Admin Acetaminophen (Tylenol Tab) 650 mg Q4HP PRN PO fever/MILD PAIN (PS 1-4) 12/29/18 12:15 01/02/19 16:56 DC Acetaminophen (Tylenol Tab) 1,000 mg TID PO 01/02/19 21:00 01/10/19 08:44 Albuterol/ Ipratropium (Duoneb (Ipr 0.5mg/Alb 2.5mg)) 3 ml RTID NEB 12/29/18 14:00 12/30/18 07:43 DC 12/30/18 07:49 Apixaban (Eliquis) 5 mg BID PO 01/03/19 09:00 01/10/19 08:45 Apixaban (Eliquis) 10 mg BID PO 12/29/18 21:00 01/02/19 23:00 DC 01/02/19 21:21 Aspirin (Aspirin Chewable) 81 mg DAILY PO 12/30/18 09:00 01/10/19 08:45 Atorvastatin Calcium (Lipitor) 80 mg QHS PO 12/29/18 21:00 01/09/19 21:43 Bacitracin/ Polymyxin B Sulfate (Polysporin Top Oint) 1 dose BID TOP 01/01/19 21:00 01/08/19 21:34 Docusate Sodium (Colace) 100 mg BID PO 12/29/18 21:00 12/30/18 12:13 DC 12/30/18 10:15 Docusate Sodium (Colace) 100 mg TID PO 12/30/18 16:00 01/10/19 08:44 Doxycycline Hyclate (Vibramycin) 100 mg BID PO 01/01/19 15:45 01/07/19 14:34 DC 01/07/19 09:21 Gabapentin (Neurontin) 300 mg TID PO 12/29/18 16:00 01/02/19 16:54 DC 01/02/19 08:36 Gabapentin (Neurontin) 400 mg TID PO 01/02/19 21:00 01/10/19 08:45 Home Med (Med Rec Complete!) ASDIRECTED XX 12/29/18 13:15 12/29/18 13:16 DC Ipratropium [place] (Atrovent 0.02%) 0.25 mg RTID INH 12/30/18 08:00 01/02/19 16:54 DC 01/01/19 20:08 Magnesium Hydroxide (Milk Of Magnesia) 30 ml DAILYPRN PRN PO CONSTIPATION 12/30/18 11:45 01/01/19 04:29 Metoprolol Tartrate (Lopressor) 25 mg BID PO 01/04/19 21:00 01/10/19 08:44 Metoprolol Tartrate (Lopressor) 50 mg BID PO 12/29/18 21:00 01/04/19 09:25 DC 01/04/19 07:52 Mirtazapine (Remeron) 7.5 mg QHS PO 01/09/19 21:00 01/09/19 21:44 Miscellaneous (Unresolved Clarification Entry) SEE LABEL COMMENTS DAILY XX 01/09/19 09:00 01/10/19 07:26 DC Nitroglycerin (Nitrostat (1/ 200)) 0.3 mg Q5MP PRN SL CHEST PAIN 12/29/18 12:15 Nystatin (Mycostatin) 1 dose BID EXT 01/05/19 21:00 01/10/19 08:45 Oxycodone HCl (Roxicodone, Oxyir) 5 mg Q4HP PRN PO PAIN 12/29/18 12:15 01/09/19 16:20 DC Oxycodone HCl (Roxicodone, Oxyir) 10 mg Q6HP PRN PO SEVERE PAIN (PS 8-10) 12/29/18 12:15 01/02/19 16:56 DC 01/02/19 08:37 Pantoprazole Sodium (Protonix) 40 mg DAILY PO 12/29/18 09:00 01/10/19 08:44 Potassium Chloride (Micro-K Extencaps) 20 meq DAILY PO 12/30/18 09:00 01/01/19 19:40 DC 01/01/19 08:42 Senna (Senokot) 1 tab QHS PO 12/29/18 21:00 01/09/19 21:42 Sodium Chloride (Saline Lock Flush) 2 ml ASDIRECTED PRN IV SEE LABEL COMMENTS 01/04/19 17:00 01/06/19 04:44 DC Sodium Chloride (Saline Lock Flush) 2 ml SLF IV 01/04/19 22:00 01/06/19 04:44 DC Temazepam (Restoril) 7.5 mg QHSP PRN PO INSOMNIA 12/30/18 12:00 01/08/19 21:33 ALONZO GURROLA MD Jan 10, 2019 12:09
[2019-01-10 13:07] LABS: BASO # 0.1 10^3/uL (0.0-0.2); BASO % 1.5 % (0.0-1.0); EOS # 0.7 10^3/uL (0.0-0.50); EOS % 9.6 % (0.0-3.0); HEMATOCRIT 38.4 % (36.0-47.0); LYMPH # 2.2 10^3/uL (1.5-4.5); LYMPH % 30.4 % (24.0-44.0); MEAN CORPUSCULAR HEMOGLOBIN 30.9 pg (27.0-33.0); MEAN CORPUSCULAR HGB CONC 31.3 g/dl (32.0-36.5); MONO # 0.8 10^3/uL (0.0-0.8); MONO % 10.4 % (0.0-5.0); NEUTROPHILS # 3.5 10^3/uL (1.8-7.7); PLATELET COUNT, AUTOMATED 665 10^3/uL (150-450); RED BLOOD COUNT 3.88 10^6/uL (4.00-5.40); WHITE BLOOD COUNT 7.2 10^3/uL (4.0-10.0)
[2019-01-10 13:17] LABS: BLOOD UREA NITROGEN 19 MG/DL (7-18); CALCIUM LEVEL 8.6 MG/DL (8.5-10.1); CARBON DIOXIDE LEVEL 26 MEQ/L (21-32); CHLORIDE LEVEL 110 MEQ/L (98-107); GLOMERULAR FILTRATION RATE > 60.0 (>51); GLUCOSE, FASTING 117 MG/DL (70-100); POTASSIUM SERUM 4.5 MEQ/L (3.5-5.1); SODIUM LEVEL 142 MEQ/L (136-145)
[2019-01-10 14:00] VITALS: BP 128/78
--- NOTE | 2019-01-10 14:24 | IPNPDOC ---
Date Seen The patient was seen on 01/10/19. Progress Note SUBJECTIVE: Patient lying comfortably in bed. States that she feels well and working out to leave the hospital. Denies any complaints. Physical therapy ongoing. OBJECTIVE PHYSICAL EXAMINATION: VITAL SIGNS: Please see below. General: No acute distress, Alert Eyes: Normal sclera, EOMI, HIEU HENT: Atraumatic, neck supple, moist mucous membranes Cardiovascular: Normal rate Pulmonary: Clear to auscultation b/l, no wheezing GI: Soft, nontender, nondistended Extremities: s/p L. AKA with overlying dress. RLE with wound vac in place inferolateral to the knee. Skin: Warm and dry Neuro: CN grossly intact. Strengths equal b/l. Psych: oriented x 3 LABORATORY DATA, IMAGING STUDIES, MICROBIOLOGY: Please see below. DVT? Patient on Eliquis ASSESSMENT AND PLAN: 1. s/p L. AKA - c/w Wound management, pain control. - c/w PT/Rehab 2. HTN - BP controlled. - c/w current medications. 3. COPD - Not in exacerbation. - Nebs if needed. 4. R. leg fasciotomy - Wound vac in place. Change MWF. - Leg swellling reportedly significantly improved per patient. 5. Thromboembolism - LE/aorta/iliac/LV thrombus s/p embolectomies and RLE fasciotomy. - c/w ASA, statin, Eliquis. - Will require outpatient evaluation of hypercoagulability post acute episode. 6. Hyperkalemia - resolved. Monitor daily BMPs. 7. Post op anemia - Improved. 10->12 today. - Monitor routine CBCs. VS, I&O, 24H, [facility] Vital Signs/I&O Vital Signs Date Time Temp Pulse Resp B/P (MAP) Pulse Ox O2 Delivery O2 Flow Rate FiO2 01/10/19 08:44 80 135/84 01/10/19 06:00 97.7 18 97 01/05/19 06:00 126.0 72 I&O- Last 24 Hours up to 6 AM 01/10/19 06:00 Intake Total 1260 ml Balance 1260 ml Laboratory Data 24H LABS Laboratory Tests 2 01/10/19 12:43: Immature Granulocyte % (Auto) 0.1, White Blood Count 7.2, Red Blood Count 3.88L, Hemoglobin 12.0, Hematocrit 38.4, Mean Corpuscular Volume 99.0H, Mean Corpuscular Hemoglobin 30.9, Mean Corpuscular Hemoglobin Concent 31.3L, Red Cell Distribution Width 17.8H, Platelet Count 665H, Neutrophils (%) (Auto) 48.0, Lymphocytes (%) (Auto) 30.4, Monocytes (%) (Auto) 10.4H, Eosinophils (%) (Auto) 9.6H, Basophils (%) (Auto) 1.5H, Neutrophils # (Auto) 3.5, Lymphocytes # (Auto) 2.2, Monocytes # (Auto) 0.8, Eosinophils # (Auto) 0.7H, Basophils # (Auto) 0.1, Nucleated Red Blood Cells % (auto) 0.0, Anion Gap 6L, Glomerular Filtration Rate > 60.0, Blood Urea Nitrogen 19H, Creatinine 0.60, Sodium Level 142, Potassium Level 4.5, Chloride Level 110H, Carbon Dioxide Level 26, Calcium Level 8.6 CBC/BMP Laboratory Tests 01/10/19 12:43 Red Blood Count 3.88 L, Mean Corpuscular Volume 99.0 H, Mean Corpuscular Hemoglobin 30.9, Mean Corpuscular Hemoglobin Concent 31.3 L, Red Cell Distributi on Width 17.8 H, Neutrophils (%) (Auto) 48.0, Lymphocytes (%) (Auto) 30.4, Monocytes (%) (Auto) 10.4 H, Eosinophils (%) (Auto) 9.6 H, Basophils (%) (Auto) 1.5 H, Neutrophils # (Auto) 3.5, Lymphocytes # (Auto) 2.2, Monocytes # (Auto) 0.8, Eosinophils # (Auto) 0.7 H, Basophils # (Auto) 0.1, Calcium Level 8.6 Microbiology Microbiology 01/04/19 Stool Occult Blood (STACEY) - Final, Complete TRAYLOR,SASHA Shine MD Jan 10, 2019 14:24
[2019-01-10 20:00] VITALS: BP 136/81
[2019-01-10] MEDS: MIRTAZAPINE 7.5MG PER 1/2 TABLET PO SCH (22:32)
[2019-01-10] MEDS: SENNA 8.6 MG TAB (SENOKOT) PO SCH (22:32)
[2019-01-10] MEDS: ATORVASTATIN 20 MG TAB PO SCH (22:33)
[2019-01-11 05:40] VITALS: BP 158/85
[2019-01-11] MEDS: POLYSPORIN TOPICAL OINTMENT 15GM TOP SCH ×2 (09:00→21:00)
[2019-01-11] MEDS: GABAPENTIN 400 MG CAP PO SCH ×3 (09:29→21:17)
[2019-01-11] MEDS: PANTOPRAZOLE 40MG TAB (PROTONIX) PO SCH (09:29)
[2019-01-11] MEDS: DOCUSATE SODIUM 100 MG CAP PO SCH ×3 (09:29→21:16)
[2019-01-11] MEDS: ACETAMINOPHEN 500 MG TAB PO SCH ×3 (09:30→21:17)
[2019-01-11] MEDS: ASPIRIN 81 MG CHEW TABLET PO SCH (09:30)
[2019-01-11] MEDS: METOPROLOL TART 25 MG TABLET PO SCH ×2 (09:30→21:18)
[2019-01-11] MEDS: APIXABAN 5 MG TAB (ELIQUIS) PO SCH ×2 (09:30→21:17)
[2019-01-11] MEDS: NYSTATIN CREAM 15 GM EXT SCH ×2 (09:35→21:18)
--- NOTE | 2019-01-11 12:01 | IPNPDOC ---
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 REVIEW OF SYSTEMS: The following is a completed review of systems and has been reviewed. Review of systems otherwise unremarkable. PAIN: Patient self reports right calf pain EYES: No recent vision changes EARS, NOSE, & THROAT: No throat pain, or dysphagia, or rhinorrhea CARDIOVASCULAR: Denies chest pain or palpitations PULMONARY: Denies shortness of breath GASTROINTESTINAL: Denies constipation/diarrhea GENITOURINARY: denies dysuria MUSCULOSKELETAL: left aka and right fasciotomies NEUROLOGICAL:no tremor or seizure activity HEMATOLOGICAL: +PAD SKIN: left aka incision and right calf fasciotomies PSYCHIATRIC: Unremarkable All other review of systems found to be negative. PHYSICAL EXAMINATION: VITAL SIGNS: Please see below. GENERAL: Pleasant and cooperative. No acute distress. HEENT: PERRL. Extraocular movements intact. Clear conjunctiva CARDIOVASCULAR: Regular rate and rhythm. No murmurs, rubs, or gallops LUNGS: Clear to auscultation bilaterally. No wheezes. No rhonchi ABDOMEN: Soft, nontender, nondistended. Positive bowel sounds. Normal active bowel sounds NEUROLOGICAL: Alert and oriented times three. Cranial nerves II through XII grossly intact. Sensation grossly intact EXTREMITIES: 5\5 strength bilateral upper extremities. 5-\5 strength right hip flexion, knee extension, 3/5 ankle DF and EHL, 5-/5 strength in left hip flexion extremity SKIN: left residual limb c/d/i without erythema or induration, +blister right calf fasciotomies c/d/i with healthy appearing muscle tissue bilateral groin incisions, scant drainage on the left Buttock and sacral rash erythemaous 58F pmh PAD presents with left AKA and right LE fasciotomy. PLAN: 1. Rehab: PT-strengthen /maintain ROM/stretch bilat LE- prevent left hip flexion and abduction contracture, limit weight bearing to RLE for transfers, otherwise aim for NWB, approaching Mod-I from wheelchair level OT- strengthen /maintain ROM/stretch bilat UE 2. Neuro: stable, avoid delirogenic meds 3. Cardiac: s/p recent NSTEMI with cath positive for takotsubo [place], EF 65% -LV thrombus with emboli in the aorta, iliac, and bilateral LE s/p embolectomies with right lower leg fasciotomy and left AKA, c/u ASA and Eliquis -has f/u with Dr. Forrest 01/22/19 1:45 pm- -will need outpatient hypercoagulation work-up -HTN, -f/u with Dr. Yeung as outpatient, c/u on lower villatoro of beta-ana -HLD, c/u statin 4. Resp: pmh COPD, current smoker, c/u Duonebs prn, smoking cessation education 5. Pain: oxycodone, will increase gabapentin to 400 TID for neurpathic pain and monitor, c/u tylenol 6. Renal: recent angiogram suspicious for renal emboli, will monitor kidney function and consult renal prn 7. GI ppx: protonix, pmh hemorrhoids, FOBT negative 8. DVT ppx: Eliquis 9. SKin: wound vac to be changed [id number], bacitracin to bilateral groin incisions and cover with gauze- healing well -optifoam to blister -left AKA incision slightly more erythematous than on admission and right fasciotomy with mild erythema yen-wound, c/u Doxycycline to cover MRSA -nystatin cream to buttock for what appears to be a fungal infection -leukocytosis improved and CRP and ESR trending down 10/ Hyperkalemia 01/01/19 s/p kayexealte improved, d/c'd K, c/u to monitor 11. Heme: postop anemia s/p 1 unit rbcs with resolution of symptoms, negative FOBT 12. Insomnia- Temazepam, c/u restoril 7.5mg 9. Dispo: 01/16/19 to [facility] housing Allergies Coded Allergies: No Known Allergies (Unverified , 11/24/18) Vital Signs Vital Signs Date Time Temp Pulse Resp B/P (MAP) Pulse Ox O2 Delivery O2 Flow Rate FiO2 01/11/19 09:30 75 158/85 01/11/19 05:40 97.0 18 100 01/05/19 06:00 126.0 72 Laboratory Data CBC/BMP Laboratory Tests 01/10/19 12:43 Red Blood Count 3.88 L, Mean Corpuscular Volume 99.0 H, Mean Corpuscular Hemoglobin 30.9, Mean Corpuscular Hemoglobin Concent 31.3 L, Red Cell Distribution Width 17.8 H, Neutrophils (%) (Auto) 48.0, Lymphocytes (%) (Auto) 30.4, Monocytes (%) (Auto) 10.4 H, Eosinophils (%) (Auto) 9.6 H, Basophils (%) (Auto) 1.5 H, Neutrophils # (Auto) 3.5, Lymphocytes # (Auto) 2.2, Monocytes # (Auto) 0.8, Eosinophils # (Auto) 0.7 H, Basophils # (Auto) 0.1, Calcium Level 8.6 Labs 24H Laboratory Tests 2 01/10/19 12:43: Immature Granulocyte % (Auto) 0.1, White Blood Count 7.2, Red Blood Count 3.88L, Hemoglobin 12.0, Hematocrit 38.4, Mean Corpuscular Volume 99.0H, Mean Corpuscular Hemoglobin 30.9, Mean Corpuscular Hemoglobin Concent 31.3L, Red Cell Distribution Width 17.8H, Platelet Count 665H, Neutrophils (%) (Auto) 48.0, Lymphocytes (%) (Auto) 30.4, Monocytes (%) (Auto) 10.4H, Eosinophils (%) (Auto) 9.6H, Basophils (%) (Auto) 1.5H, Neutrophils # (Auto) 3.5, Lymphocytes # (Auto) 2.2, Monocytes # (Auto) 0.8, Eosinophils # (Auto) 0.7H, Basophils # (Auto) 0.1, Nucleated Red Blood Cells % (auto) 0.0, Anion Gap 6L, Glomerular Filtration Rate > 60.0, Blood Urea Nitrogen 19H, Creatinine 0.60, Sodium Level 142, Potassium Level 4.5, Chloride Level 110H, Carbon Dioxide Level 26, Calcium Level 8.6 Microbiology Microbiology 01/04/19 Stool Occult Blood (STACEY) - Final, Complete Current Medications Current Medications Current Medications Medications (Trade) Dose Ordered Sig/Kevin Route PRN Reason Start Time Stop Time Status Last Admin Dose Admin Acetaminophen (Tylenol Tab) 650 mg Q4HP PRN PO fever/MILD PAIN (PS 1-4) 12/29/18 12:15 01/02/19 16:56 DC Acetaminophen (Tylenol Tab) 1,000 mg TID PO 01/02/19 21:00 01/11/19 09:30 Albuterol/ Ipratropium (Duoneb (Ipr 0.5mg/Alb 2.5mg)) 3 ml RTID NEB 12/29/18 14:00 12/30/18 07:43 DC 12/30/18 07:49 Apixaban (Eliquis) 5 mg BID PO 01/03/19 09:00 01/11/19 09:30 Apixaban (Eliquis) 10 mg BID PO 12/29/18 21:00 01/02/19 23:00 DC 01/02/19 21:21 Aspirin (Aspirin Chewable) 81 mg DAILY PO 12/30/18 09:00 01/11/19 09:30 Atorvastatin Calcium (Lipitor) 80 mg QHS PO 12/29/18 21:00 01/10/19 22:33 Bacitracin/ Polymyxin B Sulfate (Polysporin Top Oint) 1 dose BID TOP 01/01/19 21:00 01/08/19 21:34 Docusate Sodium (Colace) 100 mg BID PO 12/29/18 21:00 12/30/18 12:13 DC 12/30/18 10:15 Docusate Sodium (Colace) 100 mg TID PO 12/30/18 16:00 01/11/19 09:29 Doxycycline Hyclate (Vibramycin) 100 mg BID PO 01/01/19 15:45 01/07/19 14:34 DC 01/07/19 09:21 Gabapentin (Neurontin) 300 mg TID PO 12/29/18 16:00 01/02/19 16:54 DC 01/02/19 08:36 Gabapentin (Neurontin) 400 mg TID PO 01/02/19 21:00 01/11/19 09:29 Home Med (Med Rec Complete!) ASDIRECTED XX 12/29/18 13:15 12/29/18 13:16 DC Ipratropium [place] (Atrovent 0.02%) 0.25 mg RTID INH 12/30/18 08:00 01/02/19 16:54 DC 01/01/19 20:08 Magnesium Hydroxide (Milk Of Magnesia) 30 ml DAILYPRN PRN PO CONSTIPATION 12/30/18 11:45 01/01/19 04:29 Metoprolol Tartrate (Lopressor) 25 mg BID PO 01/04/19 21:00 01/11/19 09:30 Metoprolol Tartrate (Lopressor) 50 mg BID PO 12/29/18 21:00 01/04/19 09:25 DC 01/04/19 07:52 Mirtazapine (Remeron) 7.5 mg QHS PO 01/09/19 21:00 01/10/19 22:32 Miscellaneous (Unresolved Clarification Entry) SEE LABEL COMMENTS DAILY XX 01/09/19 09:00 01/10/19 07:26 DC Miscellaneous (Unresolved Clarification Entry) SEE LABEL COMMENTS DAILY XX 01/11/19 09:00 Nitroglycerin (Nitrostat (1/ 200)) 0.3 mg Q5MP PRN SL CHEST PAIN 12/29/18 12:15 Nystatin (Mycostatin) 1 dose BID EXT 01/05/19 21:00 01/11/19 09:35 Oxycodone HCl (Roxicodone, Oxyir) 5 mg Q4HP PRN PO PAIN 12/29/18 12:15 01/09/19 16:20 DC Oxycodone HCl (Roxicodone, Oxyir) 10 mg Q6HP PRN PO SEVERE PAIN (PS 8-10) 12/29/18 12:15 01/02/19 16:56 DC 01/02/19 08:37 Pantoprazole Sodium (Protonix) 40 mg DAILY PO 12/29/18 09:00 01/11/19 09:29 Potassium Chloride (Micro-K Extencaps) 20 meq DAILY PO 12/30/18 09:00 01/01/19 19:40 DC 01/01/19 08:42 Senna (Senokot) 1 tab QHS PO 12/29/18 21:00 01/10/19 22:32 Sodium Chloride (Saline Lock Flush) 2 ml ASDIRECTED PRN IV SEE LABEL COMMENTS 01/04/19 17:00 01/06/19 04:44 DC Sodium Chloride (Saline Lock Flush) 2 ml SLF IV 01/04/19 22:00 01/06/19 04:44 DC Temazepam (Restoril) 7.5 mg QHSP PRN PO INSOMNIA 12/30/18 12:00 01/08/19 21:33 ALONZO GURROLA MD Jan 11, 2019 12:01
[2019-01-11 14:00] VITALS: BP 144/75
--- NOTE | 2019-01-11 16:41 | IPNPDOC ---
Date Seen The patient was seen on 01/11/19. Progress Note SUBJECTIVE: Patient comfortable. Still has no complaints. PT has been going well. Had wound vac changed yesterday. Afebrile overnight. OBJECTIVE PHYSICAL EXAMINATION: VITAL SIGNS: Please see below. General: No acute distress, Alert Eyes: Normal sclera, EOMI, HIEU HENT: Atraumatic, neck supple, moist mucous membranes Cardiovascular: Normal rate Pulmonary: Clear to auscultation b/l, no wheezing GI: Soft, nontender, nondistended Extremities: s/p L. AKA with overlying dress. RLE with wound vac in place inferolateral to the knee. Skin: Warm and dry Neuro: CN grossly intact. Strengths equal b/l. Psych: oriented x 3 LABORATORY DATA, IMAGING STUDIES, MICROBIOLOGY: Please see below. DVT? Patient on Eliquis ASSESSMENT AND PLAN: 1. s/p L. AKA - c/w Wound management, pain control. - PT/Rehab. 2. HTN - c/w current medications metoprolol 25mg BID. 3. COPD - Not in exacerbation. - Nebs if needed. 4. R. leg fasciotomy - Wound vac in place. Change MWF. - Leg swellling reportedly significantly improved per patient. 5. Thromboembolism - LE/aorta/iliac/LV thrombus s/p embolectomies and RLE fasciotomy. - c/w ASA, statin, Eliquis. - Will require outpatient evaluation of hypercoagulability post acute episode. 6. Hyperkalemia - resolved. Monitor daily BMPs. 7. Post op anemia - Improved. s/p 1 pRBC. - Monitor routine CBCs. VS, I&O, 24H, Fishbone Vital Signs/I&O Vital Signs Date Time Temp Pulse Resp B/P (MAP) Pulse Ox O2 Delivery O2 Flow Rate FiO2 01/11/19 14:00 97.3 85 16 144/75 (98) 97 01/05/19 06:00 126.0 72 I&O- Last 24 Hours up to 6 AM 01/11/19 06:00 Intake Total 880 ml Balance 880 ml Laboratory Data Microbiology Microbiology 01/04/19 Stool Occult Blood (STACEY) - Final, Complete SASHA TRAYLOR MD Jan 11, 2019 16:41
[2019-01-11] MEDS: ATORVASTATIN 20 MG TAB PO SCH (21:17)
[2019-01-11] MEDS: SENNA 8.6 MG TAB (SENOKOT) PO SCH (21:17)
[2019-01-11] MEDS: MIRTAZAPINE 7.5MG PER 1/2 TABLET PO SCH (21:18)
[2019-01-11 21:27] VITALS: BP 140/77
[2019-01-12] MEDS: TEMAZEPAM 7.5 MG CAP PO PRN (00:59)
[2019-01-12 05:49] VITALS: BP 158/85
[2019-01-12 06:45] LABS: BASO # 0.1 10^3/uL (0.0-0.2); BASO % 1.2 % (0.0-1.0); EOS # 0.6 10^3/uL (0.0-0.50); EOS % 10.6 % (0.0-3.0); HEMATOCRIT 40.4 % (36.0-47.0); HEMOGLOBIN 12.6 g/dl (12.0-15.5); LYMPH # 1.4 10^3/uL (1.5-4.5); LYMPH % 23.1 % (24.0-44.0); MEAN CORPUSCULAR HEMOGLOBIN 32.1 pg (27.0-33.0); MEAN CORPUSCULAR HGB CONC 31.2 g/dl (32.0-36.5); MEAN CORPUSCULAR VOLUME 103.1 fl (80.0-96.0); MONO # 0.6 10^3/uL (0.0-0.8); MONO % 10.3 % (0.0-5.0); NEUTROPHILS # 3.3 10^3/uL (1.8-7.7); NEUTROPHILS % 54.5 % (36.0-66.0); PLATELET COUNT, AUTOMATED 568 10^3/uL (150-450); RED BLOOD COUNT 3.92 10^6/uL (4.00-5.40)
[2019-01-12 07:06] LABS: BLOOD UREA NITROGEN 13 MG/DL (7-18); CALCIUM LEVEL 9.4 MG/DL (8.5-10.1); CARBON DIOXIDE LEVEL 32 MEQ/L (21-32); CHLORIDE LEVEL 107 MEQ/L (98-107); CREATININE FOR GFR 0.66 MG/DL (0.55-1.30); GLOMERULAR FILTRATION RATE > 60.0 (>51); GLUCOSE, FASTING 94 MG/DL (70-100); POTASSIUM SERUM 5.1 MEQ/L (3.5-5.1); SODIUM LEVEL 145 MEQ/L (136-145)
[2019-01-12] MEDS: POLYSPORIN TOPICAL OINTMENT 15GM TOP SCH ×2 (09:00→21:00)
[2019-01-12] MEDS: MOM 30ML SUSPENSION UDC PO PRN (09:02)
[2019-01-12] MEDS: PANTOPRAZOLE 40MG TAB (PROTONIX) PO SCH (09:02)
[2019-01-12] MEDS: GABAPENTIN 400 MG CAP PO SCH ×3 (09:02→21:44)
[2019-01-12] MEDS: APIXABAN 5 MG TAB (ELIQUIS) PO SCH ×2 (09:02→21:44)
[2019-01-12] MEDS: ASPIRIN 81 MG CHEW TABLET PO SCH (09:03)
[2019-01-12] MEDS: DOCUSATE SODIUM 100 MG CAP PO SCH ×3 (09:03→21:46)
[2019-01-12] MEDS: ACETAMINOPHEN 500 MG TAB PO SCH ×3 (09:03→21:45)
[2019-01-12] MEDS: NYSTATIN CREAM 15 GM EXT SCH ×2 (09:04→21:47)
[2019-01-12] MEDS: METOPROLOL TART 25 MG TABLET PO SCH ×2 (09:04→21:46)
--- NOTE | 2019-01-12 10:52 | IPNPDOC ---
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 She is working on floor transfers. REVIEW OF SYSTEMS: The following is a completed review of systems and has been reviewed. Review of systems otherwise unremarkable. PAIN: Patient self reports right calf pain EYES: No recent vision changes EARS, NOSE, & THROAT: No throat pain, or dysphagia, or rhinorrhea CARDIOVASCULAR: Denies chest pain or palpitations PULMONARY: Denies shortness of breath GASTROINTESTINAL: Denies constipation/diarrhea GENITOURINARY: denies dysuria MUSCULOSKELETAL: left aka and right fasciotomies NEUROLOGICAL:no tremor or seizure activity HEMATOLOGICAL: +PAD SKIN: left aka incision and right calf fasciotomies PSYCHIATRIC: Unremarkable All other review of systems found to be negative. PHYSICAL EXAMINATION: VITAL SIGNS: Please see below. GENERAL: Pleasant and cooperative. No acute distress. HEENT: PERRL. Extraocular movements intact. Clear conjunctiva CARDIOVASCULAR: Regular rate and rhythm. No murmurs, rubs, or gallops LUNGS: Clear to auscultation bilaterally. No wheezes. No rhonchi ABDOMEN: Soft, nontender, nondistended. Positive bowel sounds. Normal active bowel sounds NEUROLOGICAL: Alert and oriented times three. Cranial nerves II through XII grossly intact. Sensation grossly intact EXTREMITIES: 5\5 strength bilateral upper extremities. 5-\5 strength right hip flexion, knee extension, 3/5 ankle DF and EHL, 5-/5 strength in left hip flexion extremity SKIN: left residual limb c/d/i without erythema or induration right calf fasciotomies c/d/i with healthy appearing muscle tissue bilateral groin incisions, scant drainage on the left Buttock and sacral rash erythemaous 58F pmh PAD presents with left AKA and right LE fasciotomy. PLAN: 1. Rehab: PT-strengthen /maintain ROM/stretch bilat LE- prevent left hip flexion and abduction contracture, limit weight bearing to RLE for transfers, otherwise aim for NWB, start room privileges OT- strengthen /maintain ROM/stretch bilat UE 2. Neuro: stable, avoid delirogenic meds 3. Cardiac: s/p recent NSTEMI with cath positive for takotsubo [place], EF 65% -LV thrombus with emboli in the aorta, iliac, and bilateral LE s/p embolectomies with right lower leg fasciotomy and left AKA, c/u ASA and Eliquis -has f/u with Dr. Forrest 01/22/19 1:45 pm- -will need outpatient hypercoagulation work-up -HTN, -f/u with Dr. Yeung as outpatient, c/u on lower villatoro of beta-ana, potassium approaching high normal s/p one time dose kayexelate , not on k- sparing diuretic/ORLY/ARB, will start low dose HCTZ as BP allows for this -HLD, c/u statin 4. Resp: pmh COPD, current smoker, c/u Duonebs prn, smoking cessation education 5. Pain: oxycodone, will increase gabapentin to 400 TID for neuropathic pain and monitor, c/u tylenol 6. Renal: recent angiogram suspicious for renal emboli, will monitor kidney function and consult renal prn 7. GI ppx: protonix, pmh hemorrhoids, FOBT negative 8. DVT ppx: Eliquis 9. SKin: wound vac to be changed [id number], bacitracin to bilateral groin incisions and cover with gauze- healing well -left AKA incision slightly more erythematous than on admission and right fasciotomy with mild erythema yen-wound, c/u Doxycycline to cover MRSA -nystatin cream to buttock for what appears to be a fungal infection -leukocytosis improved and CRP and ESR trending down 10/ Hyperkalemia 01/01/19 s/p kayexealte improved, d/c'd K, c/u to monitor, will start HCTZ as beginning to climb 11. Heme: postop anemia s/p 1 unit rbcs with resolution of symptoms, negative FOBT 12. Insomnia- Temazepam, c/u restoril 7.5mg 9. Dispo: 01/16/19 to [facility] housing Allergies Coded Allergies: No Known Allergies (Unverified , 11/24/18) Vital Signs Vital Signs Date Time Temp Pulse Resp B/P (MAP) Pulse Ox O2 Delivery O2 Flow Rate FiO2 01/12/19 09:04 80 150/8 01/12/19 05:49 97.8 18 96 Laboratory Data CBC/BMP Laboratory Tests 01/12/19 06:32 Red Blood Count 3.92 L, Mean Corpuscular Volume 103.1 H, Mean Corpuscular Hemoglobin 32.1, Mean Corpuscular Hemoglobin Concent 31.2 L, Red Cell Distrib ution Width 17.6 H, Neutrophils (%) (Auto) 54.5, Lymphocytes (%) (Auto) 23.1 L, Monocytes (%) (Auto) 10.3 H, Eosinophils (%) (Auto) 10.6 H, Basophils (%) (Auto) 1.2 H, Neutrophils # (Auto) 3.3, Lymphocytes # (Auto) 1.4 L, Monocytes # (Auto) 0.6, Eosinophils # (Auto) 0.6 H, Basophils # (Auto) 0.1, Calcium Level 9.4 Labs 24H Laboratory Tests 2 01/12/19 06:32: Immature Granulocyte % (Auto) 0.3, White Blood Count 6.0, Red Blood Count 3.92L, Hemoglobin 12.6, Hematocrit 40.4, Mean Corpuscular Volume 103.1H, Mean Corpuscular Hemoglobin 32.1, Mean Corpuscular Hemoglobin Concent 31.2L, Red Cell Distribution Width 17.6H, Platelet Count 568H, Neutrophils (%) (Auto) 54.5, Lymphocytes (%) (Auto) 23.1L, Monocytes (%) (Auto) 10.3H, Eosinophils (%) (Auto) 10.6H, Basophils (%) (Auto) 1.2H, Neutrophils # (Auto) 3.3, Lymphocytes # (Auto) 1.4L, Monocytes # (Auto) 0.6, Eosinophils # (Auto) 0.6H, Basophils # (Auto) 0.1, Nucleated Red Blood Cells % (auto) 0.0, Anion Gap 6L, Glomerular Filtration Rate > 60.0, Blood Urea Nitrogen 13, Creatinine 0.66, Sodium Level 145, Potassium Level 5.1, Chloride Level 107, Carbon Dioxide Level 32, Calcium Level 9.4 Microbiology Microbiology 01/04/19 Stool Occult Blood (STACEY) - Final, Complete Current Medications Current Medications Current Medications Medications (Trade) Dose Ordered Sig/Kevin Route PRN Reason Start Time Stop Time Status Last Admin Dose Admin Acetaminophen (Tylenol Tab) 650 mg Q4HP PRN PO fever/MILD PAIN (PS 1-4) 12/29/18 12:15 01/02/19 16:56 DC Acetaminophen (Tylenol Tab) 1,000 mg TID PO 01/02/19 21:00 01/12/19 09:03 Albuterol/ Ipratropium (Duoneb (Ipr 0.5mg/Alb 2.5mg)) 3 ml RTID NEB 12/29/18 14:00 12/30/18 07:43 DC 12/30/18 07:49 Apixaban (Eliquis) 5 mg BID PO 01/03/19 09:00 01/12/19 09:02 Apixaban (Eliquis) 10 mg BID PO 12/29/18 21:00 01/02/19 23:00 DC 01/02/19 21:21 Aspirin (Aspirin Chewable) 81 mg DAILY PO 12/30/18 09:00 01/12/19 09:03 Atorvastatin Calcium (Lipitor) 80 mg QHS PO 12/29/18 21:00 01/11/19 21:17 Bacitracin/ Polymyxin B Sulfate (Polysporin Top Oint) 1 dose BID TOP 01/01/19 21:00 01/08/19 21:34 Docusate Sodium (Colace) 100 mg BID PO 12/29/18 21:00 12/30/18 12:13 DC 12/30/18 10:15 Docusate Sodium (Colace) 100 mg TID PO 12/30/18 16:00 01/12/19 09:03 Doxycycline Hyclate (Vibramycin) 100 mg BID PO 01/01/19 15:45 01/07/19 14:34 DC 01/07/19 09:21 Gabapentin (Neurontin) 300 mg TID PO 12/29/18 16:00 01/02/19 16:54 DC 01/02/19 08:36 Gabapentin (Neurontin) 400 mg TID PO 01/02/19 21:00 01/12/19 09:02 Home Med (Med Rec Complete!) ASDIRECTED XX 12/29/18 13:15 12/29/18 13:16 DC Ipratropium [place] (Atrovent 0.02%) 0.25 mg RTID INH 12/30/18 08:00 01/02/19 16:54 DC 01/01/19 20:08 Magnesium Hydroxide (Milk Of Magnesia) 30 ml DAILYPRN PRN PO CONSTIPATION 12/30/18 11:45 01/12/19 09:02 Metoprolol Tartrate (Lopressor) 25 mg BID PO 01/04/19 21:00 01/12/19 09:04 Metoprolol Tartrate (Lopressor) 50 mg BID PO 12/29/18 21:00 01/04/19 09:25 DC 01/04/19 07:52 Mirtazapine (Remeron) 7.5 mg QHS PO 01/09/19 21:00 01/11/19 21:18 Miscellaneous (Unresolved Clarification Entry) SEE LABEL COMMENTS DAILY XX 01/09/19 09:00 01/10/19 07:26 DC Miscellaneous (Unresolved Clarification Entry) SEE LABEL COMMENTS DAILY XX 01/11/19 09:00 01/11/19 13:03 DC Nitroglycerin (Nitrostat (1/ 200)) 0.3 mg Q5MP PRN SL CHEST PAIN 12/29/18 12:15 Nystatin (Mycostatin) 1 dose BID EXT 01/05/19 21:00 01/12/19 09:04 Oxycodone HCl (Roxicodone, Oxyir) 5 mg Q4HP PRN PO PAIN 12/29/18 12:15 01/09/19 16:20 DC Oxycodone HCl (Roxicodone, Oxyir) 10 mg Q6HP PRN PO SEVERE PAIN (PS 8-10) 12/29/18 12:15 01/02/19 16:56 DC 01/02/19 08:37 Pantoprazole Sodium (Protonix) 40 mg DAILY PO 12/29/18 09:00 01/12/19 09:02 Potassium Chloride (Micro-K Extencaps) 20 meq DAILY PO 12/30/18 09:00 01/01/19 19:40 DC 01/01/19 08:42 Senna (Senokot) 1 tab QHS PO 12/29/18 21:00 01/11/19 21:17 Sodium Chloride (Saline Lock Flush) 2 ml ASDIRECTED PRN IV SEE LABEL COMMENTS 01/04/19 17:00 01/06/19 04:44 DC Sodium Chloride (Saline Lock Flush) 2 ml SLF IV 01/04/19 22:00 01/06/19 04:44 DC Temazepam (Restoril) 7.5 mg QHSP PRN PO INSOMNIA 12/30/18 12:00 01/12/19 00:59 ALONZO GURROLA MD Jan 12, 2019 10:52
[2019-01-12] MEDS: hydroCHLOROthiazide 12.5 MG CAPSULE PO SCH (12:03)
[2019-01-12 14:00] VITALS: BP 134/87
--- NOTE | 2019-01-12 16:34 | IPNPDOC ---
Date Seen The patient was seen on 01/12/19. Progress Note SUBJECTIVE: No complaints reported. Feels well. Optimistic that she may be discharged early next week. Afebrile, no leukocytosis. K 5.1. OBJECTIVE PHYSICAL EXAMINATION: VITAL SIGNS: Please see below. General: No acute distress, Alert Eyes: Normal sclera, EOMI, HIEU HENT: Atraumatic, neck supple, moist mucous membranes Cardiovascular: Normal rate Pulmonary: Clear to auscultation b/l, no wheezing GI: Soft, nontender, nondistended Extremities: s/p L. AKA with overlying dress. RLE with wound vac in place inferolateral to the knee. Skin: Warm and dry Neuro: CN grossly intact. Strengths equal b/l. Psych: oriented x 3 LABORATORY DATA, IMAGING STUDIES, MICROBIOLOGY: Please see below. DVT? Patient on Eliquis ASSESSMENT AND PLAN: 1. s/p L. AKA - c/w Wound management, pain control. - PT/Rehab. 2. HTN - c/w current medications metoprolol 25mg BID. 3. COPD - Not in exacerbation. - Nebs if needed. 4. R. leg fasciotomy - Wound vac in place. Change MWF. - Leg swelling reportedly improved per patient. 5. Thromboembolism - LE/aorta/iliac/LV thrombus s/p embolectomies and RLE fasciotomy. - c/w ASA, statin, Eliquis. - Will require outpatient evaluation of hypercoagulability post acute episode. 6. Hyperkalemia - resolved. Monitor daily BMPs. - 5.1 today. Started on HCTZ per primary, should help with both stabilizing BP as well as keeping K down. 7. Post op anemia - Improved. s/p 1 pRBC. - Monitor routine CBCs. VS, I&O, 24H, Fishbone Vital Signs/I&O Vital Signs Date Time Temp Pulse Resp B/P (MAP) Pulse Ox O2 Delivery O2 Flow Rate FiO2 01/12/19 09:04 80 150/8 01/12/19 05:49 97.8 18 96 I&O- Last 24 Hours up to 6 AM 01/12/19 06:00 Intake Total 1020 ml Balance 1020 ml Laboratory Data 24H LABS Laboratory Tests 2 01/12/19 06:32: Immature Granulocyte % (Auto) 0.3, White Blood Count 6.0, Red Blood Count 3.92L, Hemoglobin 12.6, Hematocrit 40.4, Mean Corpuscular Volume 103.1H, Mean Corpuscular Hemoglobin 32.1, Mean Corpuscular Hemoglobin Concent 31.2L, Red Cell Distribution Width 17.6H, Platelet Count 568H, Neutrophils (%) (Auto) 54.5, Lymphocytes (%) (Auto) 23.1L, Monocytes (%) (Auto) 10.3H, Eosinophils (%) (Auto) 10.6H, Basophils (%) (Auto) 1.2H, Neutrophils # (Auto) 3.3, Lymphocytes # (Auto) 1.4L, Monocytes # (Auto) 0.6, Eosinophils # (Auto) 0.6H, Basophils # (Auto) 0.1, Nucleated Red Blood Cells % (auto) 0.0, Anion Gap 6L, Glomerular Filtration Rate > 60.0, Blood Urea Nitrogen 13, Creatinine 0.66, Sodium Level 145, Potassium Level 5.1, Chloride Level 107, Carbon Dioxide Level 32, Calcium Level 9.4 CBC/BMP Laboratory Tests 01/12/19 06:32 Red Blood Count 3.92 L, Mean Corpuscular Volume 103.1 H, Mean Corpuscular Hemoglobin 32.1, Mean Corpuscular Hemoglobin Concent 31.2 L, Red Cell Distribution Width 17.6 H, Neutrophils (%) (Auto) 54.5, Lymphocytes (%) (Auto) 23.1 L, Monocytes (%) (Auto) 10.3 H, Eosinophils (%) (Auto) 10.6 H, Basophils (%) (Auto) 1.2 H, Neutrophils # (Auto) 3.3, Lymphocytes # (Auto) 1.4 L, Monocytes # (Auto) 0.6, Eosinophils # (Auto) 0.6 H, Basophils # (Auto) 0.1, Calcium Level 9.4 Microbiology Microbiology 01/04/19 Stool Occult Blood (STACEY) - Final, Complete TRAYLORSASHA MD Jan 12, 2019 16:34
[2019-01-12 20:00] VITALS: BP 141/93
[2019-01-12] MEDS: MIRTAZAPINE 7.5MG PER 1/2 TABLET PO SCH (21:44)
[2019-01-12] MEDS: ATORVASTATIN 20 MG TAB PO SCH (21:45)
[2019-01-12] MEDS: SENNA 8.6 MG TAB (SENOKOT) PO SCH (21:46)
[2019-01-13 06:00] VITALS: BP 143/86
[2019-01-13] MEDS: APIXABAN 5 MG TAB (ELIQUIS) PO SCH ×2 (10:05→21:56)
[2019-01-13] MEDS: DOCUSATE SODIUM 100 MG CAP PO SCH ×3 (10:05→21:55)
[2019-01-13] MEDS: ASPIRIN 81 MG CHEW TABLET PO SCH (10:06)
[2019-01-13] MEDS: GABAPENTIN 400 MG CAP PO SCH ×3 (10:06→21:55)
[2019-01-13] MEDS: PANTOPRAZOLE 40MG TAB (PROTONIX) PO SCH (10:06)
[2019-01-13] MEDS: ACETAMINOPHEN 500 MG TAB PO SCH ×3 (10:06→21:55)
[2019-01-13] MEDS: hydroCHLOROthiazide 12.5 MG CAPSULE PO SCH (10:07)
[2019-01-13] MEDS: METOPROLOL TART 25 MG TABLET PO SCH ×2 (10:07→21:55)
[2019-01-13] MEDS: POLYSPORIN TOPICAL OINTMENT 15GM TOP SCH ×2 (10:07→21:00)
[2019-01-13] MEDS: NYSTATIN CREAM 15 GM EXT SCH ×2 (10:08→21:57)
--- NOTE | 2019-01-13 11:46 | IPNPDOC ---
Date Seen The patient was seen on 01/13/19. Progress Note SUBJECTIVE: No complaints reported, states that she feels well. Very happy with how much progress she had made with physical therapy and speaks very fondly of Dr. Alonzo. Vital sign stable overnight. OBJECTIVE PHYSICAL EXAMINATION: VITAL SIGNS: Please see below. General: No acute distress, Alert Eyes: Normal sclera, EOMI, HIEU HENT: Atraumatic, neck supple, moist mucous membranes Cardiovascular: Normal rate Pulmonary: Clear to auscultation b/l, no wheezing GI: Soft, nontender, nondistended Extremities: s/p L. AKA with overlying dress. RLE with wound vac in place inferolateral to the knee. Skin: Warm and dry Neuro: CN grossly intact. Strengths equal b/l. Psych: oriented x 3 LABORATORY DATA, IMAGING STUDIES, MICROBIOLOGY: Please see below. DVT? Patient on Eliquis ASSESSMENT AND PLAN: 1. s/p L. AKA - c/w Wound management, pain control. - PT/Rehab. 2. HTN - c/w current medications metoprolol 25mg BID. 3. COPD - Not in exacerbation. - Nebs if needed. 4. R. leg fasciotomy - Wound vac in place. Change MWF. - Leg swelling reportedly improved per patient. 5. Thromboembolism - LE/aorta/iliac/LV thrombus s/p embolectomies and RLE fasciotomy. - c/w ASA, statin, Eliquis. - Will require outpatient evaluation of hypercoagulability post acute episode. 6. Hyperkalemia - resolved. Monitor daily BMPs. - Last K 5.1. Started on HCTZ per primary rehab team, should help with both stabilizing BP as well as keeping K down. 7. Post op anemia - Improved. s/p 1 pRBC. - Monitor routine CBCs. VS, I&O, 24H, Fishbone Vital Signs/I&O Vital Signs Date Time Temp Pulse Resp B/P (MAP) Pulse Ox O2 Delivery O2 Flow Rate FiO2 01/13/19 10:07 96 143/86 01/13/19 06:00 97.0 18 96 I&O- Last 24 Hours up to 6 AM 01/13/19 05:59 Intake Total 720 ml Balance 720 ml Laboratory Data Microbiology Microbiology 01/04/19 Stool Occult Blood (STACEY) - Final, Complete SASHA TRAYLOR MD Jan 13, 2019 11:46
[2019-01-13 14:00] VITALS: BP 129/77
[2019-01-13 20:00] VITALS: BP 124/89
[2019-01-13] MEDS: SENNA 8.6 MG TAB (SENOKOT) PO SCH (21:55)
[2019-01-13] MEDS: MIRTAZAPINE 7.5MG PER 1/2 TABLET PO SCH (21:55)
[2019-01-13] MEDS: ATORVASTATIN 20 MG TAB PO SCH (21:56)
[2019-01-14 05:29] VITALS: BP 115/76
[2019-01-14 07:22] LABS: BASO # 0.1 10^3/uL (0.0-0.2); BASO % 1.8 % (0.0-1.0); EOS # 0.6 10^3/uL (0.0-0.5); EOS % 10.9 % (0.0-3.0); HEMATOCRIT 40.9 % (36.0-47.0); HEMOGLOBIN 12.9 g/dl (12.0-15.5); LYMPH # 1.8 10^3/uL (1.5-5.0); LYMPH % 31.9 % (24.0-44.0); MEAN CORPUSCULAR HEMOGLOBIN 31.1 pg (27.0-33.0); MEAN CORPUSCULAR HGB CONC 31.5 g/dl (32.0-36.5); MEAN CORPUSCULAR VOLUME 98.6 fl (80.0-96.0); MONO # 0.6 10^3/uL (0.0-0.8); MONO % 10.9 % (0.0-5.0); NEUTROPHILS # 2.5 10^3/uL (1.5-8.5); NEUTROPHILS % 44.1 % (36.0-66.0); PLATELET COUNT, AUTOMATED 570 10^3/uL (150-450); RED BLOOD COUNT 4.15 10^6/uL (4.00-5.40); WHITE BLOOD COUNT 5.6 10^3/uL (4.0-10.0)
[2019-01-14 07:40] LABS: BLOOD UREA NITROGEN 14 MG/DL (7-18); CALCIUM LEVEL 9.1 MG/DL (8.5-10.1); CARBON DIOXIDE LEVEL 30 MEQ/L (21-32); CHLORIDE LEVEL 106 MEQ/L (98-107); CREATININE FOR GFR 0.66 MG/DL (0.55-1.30); GLOMERULAR FILTRATION RATE > 60.0 (>51); GLUCOSE, FASTING 105 MG/DL (70-100); POTASSIUM SERUM 4.3 MEQ/L (3.5-5.1); SODIUM LEVEL 140 MEQ/L (136-145)
[2019-01-14] MEDS: DOCUSATE SODIUM 100 MG CAP PO SCH ×3 (08:22→22:24)
[2019-01-14] MEDS: PANTOPRAZOLE 40MG TAB (PROTONIX) PO SCH (08:23)
[2019-01-14] MEDS: APIXABAN 5 MG TAB (ELIQUIS) PO SCH ×2 (08:23→22:24)
[2019-01-14] MEDS: GABAPENTIN 400 MG CAP PO SCH ×3 (08:23→22:24)
[2019-01-14] MEDS: METOPROLOL TART 25 MG TABLET PO SCH ×2 (08:23→22:24)
[2019-01-14] MEDS: ACETAMINOPHEN 500 MG TAB PO SCH ×3 (08:23→22:25)
[2019-01-14] MEDS: POLYSPORIN TOPICAL OINTMENT 15GM TOP SCH ×2 (08:24→20:17)
[2019-01-14] MEDS: NYSTATIN CREAM 15 GM EXT SCH ×2 (08:24→22:26)
[2019-01-14] MEDS: hydroCHLOROthiazide 12.5 MG CAPSULE PO SCH (08:24)
[2019-01-14] MEDS: ASPIRIN 81 MG CHEW TABLET PO SCH (09:26)
[2019-01-14 14:00] VITALS: BP 128/78
--- NOTE | 2019-01-14 16:19 | IPNPDOC ---
Date Seen The patient was seen on 01/14/19. Progress Note SUBJECTIVE: Patient is comfortable in bed, reported feeling well. Off from PT this weekend but wants to go biking on her own. OBJECTIVE PHYSICAL EXAMINATION: VITAL SIGNS: Please see below. General: No acute distress, Alert Eyes: Normal sclera, EOMI, HIEU HENT: Atraumatic, neck supple, moist mucous membranes Cardiovascular: Normal rate Pulmonary: Clear to auscultation b/l, no wheezing GI: Soft, nontender, nondistended Extremities: s/p L. AKA with overlying dress. RLE with wound vac in place in ferolateral to the knee. Skin: Warm and dry Neuro: CN grossly intact. Strengths equal b/l. Psych: oriented x 3 LABORATORY DATA, IMAGING STUDIES, MICROBIOLOGY: Please see below. DVT? Patient on Eliquis ASSESSMENT AND PLAN: 1. s/p L. AKA - c/w Wound management, pain control. - PT/Rehab. 2. HTN - c/w current medications metoprolol 25mg BID. 3. COPD - Not in exacerbation. - Nebs if needed. 4. R. leg fasciotomy - Wound vac in place. Change MWF. - Leg swelling reportedly improved per patient. 5. Thromboembolism - LE/aorta/iliac/LV thrombus s/p embolectomies and RLE fasciotomy. - c/w ASA, statin, Eliquis. - Will require outpatient evaluation of hypercoagulability post acute episode. 6. Hyperkalemia - resolved. Monitor daily BMPs. - Last K 4.3. Started on HCTZ per primary rehab team, should help with both stabilizing BP as well as keeping K down. 7. Post op anemia - Improved. s/p 1 pRBC. - Monitor routine CBCs. VS, I&O, 24H, [facility] Vital Signs/I&O Vital Signs Date Time Temp Pulse Resp B/P (MAP) Pulse Ox O2 Delivery O2 Flow Rate FiO2 01/14/19 14:00 98.6 97 18 128/78 (95) 98 I&O- Last 24 Hours up to 6 AM 01/14/19 06:00 Intake Total 840 ml Balance 840 ml Laboratory Data 24H LABS Laboratory Tests 2 01/14/19 07:01: Immature Granulocyte % (Auto) 0.4, White Blood Count 5.6, Red Blood Count 4.15, Hemoglobin 12.9, Hematocrit 40.9, Mean Corpuscular Volume 98.6H, Mean Corpuscular Hemoglobin 31.1, Mean Corpuscular Hemoglobin Concent 31.5L, Red Cell Distribution Width 16.8H, Platelet Count 570H, Neutrophils (%) (Auto) 44.1, Lymphocytes (%) (Auto) 31.9, Monocytes (%) (Auto) 10.9H, Eosinophils (%) (Auto) 10.9H, Basophils (%) (Auto) 1.8H, Neutrophils # (Auto) 2.5, Lymphocytes # (Auto) 1.8, Monocytes # (Auto) 0.6, Eosinophils # (Auto) 0.6H, Basophils # (Auto) 0.1, Nucleated Red Blood Cells % (auto) 0.0, Anion Gap 4L, Glomerular Filtration Rate > 60.0, Blood Urea Nitrogen 14, Creatinine 0.66, Sodium Level 140, Potassium Level 4.3, Chloride Level 106, Carbon Dioxide Level 30, Calcium Level 9.1 CBC/BMP Laboratory Tests 01/14/19 07:01 Red Blood Count 4.15, Mean Corpuscular Volume 98.6 H, Mean Corpuscular Hemoglobin 31.1, Mean Corpuscular Hemoglobin Concent 31.5 L, Red Cell Distr ibution Width 16.8 H, Neutrophils (%) (Auto) 44.1, Lymphocytes (%) (Auto) 31.9, Monocytes (%) (Auto) 10.9 H, Eosinophils (%) (Auto) 10.9 H, Basophils (%) (Auto) 1.8 H, Neutrophils # (Auto) 2.5, Lymphocytes # (Auto) 1.8, Monocytes # (Auto) 0.6, Eosinophils # (Auto) 0.6 H, Basophils # (Auto) 0.1, Calcium Level 9.1 Microbiology Microbiology 01/04/19 Stool Occult Blood (STACEY) - Final, Complete TRAYLORSASHA MD Jan 14, 2019 16:19
[2019-01-14 20:00] VITALS: BP 122/77
[2019-01-14] MEDS: ATORVASTATIN 20 MG TAB PO SCH (22:24)
[2019-01-14] MEDS: MIRTAZAPINE 7.5MG PER 1/2 TABLET PO SCH (22:25)
[2019-01-14] MEDS: TEMAZEPAM 7.5 MG CAP PO PRN (22:26)
[2019-01-14] MEDS: SENNA 8.6 MG TAB (SENOKOT) PO SCH (22:27)
[2019-01-15 01:15] VITALS: BP 137/86
--- NOTE | 2019-01-15 03:19 | REPVR ---
EXAM: CT Head Without Contrast EXAM DATE/TIME: 01/15/19 (2:57am) CLINICAL HISTORY: 58 year old female. Pain. Unwitnessed fall. TECHNIQUE: Imaging protocol: Computed tomography of the head without contrast. Radiation optimization: All CT scans at this facility use at least one of these dose optimization techniques: automated exposure control; mA and/or kV adjustment per patient size (includes targeted exams where dose is matched to clinical indication); or iterative reconstruction. COMPARISON: No relevant prior studies available FINDINGS: Brain: No acute hemorrhage. No cerebral edema. Age-related atrophic changes are noted. Periventricular and subcortical areas of low attenuation, compatible with chronic small vessel microischemic changes. Encephalomalacia anteriorly in the left frontal lobe. Ventricles: Normal. No ventriculomegaly. Bones/joints: Unremarkable. No acute fracture. Sinuses: Visualized sinuses are unremarkable. No fluid levels. Mastoid air cells: Visualized mastoid air cells are well aerated. Soft tissues: Unremarkable. IMPRESSION: No acute intracranial pathology is appreciated. Chronic atrophic and microischemic changes are noted. Electronically signed by: Nancy Garduno On 01/15/2019 03:19:09 AM
--- NOTE | 2019-01-15 03:35 | REPVR ---
EXAM: XR Lumbosacral Spine, 4 or 5 Views EXAM DATE/TIME: 01/15/19 (3:05am) CLINICAL HISTORY: 58 year old female. Recent unwitnessed fall. Found on the floor. Initial encounter. Blunt trauma (contusions or hematomas). Patient states she lost her balance returning to her wheel chair and she lowered herself to the floor. States lower back pain for some time. TECHNIQUE: Imaging protocol: XR of the lumbosacral spine, 4 or 5 views COMPARISON: Lumbosacral spine plain films of 11/13/17 CT ABDOMEN PELVIS of 12/12/18 FINDINGS: Comparison is made with lumbar spine plain films done on 11/13/17. There may be a slight compression deformity of the superior endplate of the L3 vertebral body. This is best appreciated on the current lateral film. Otherwise, vertebral body heights and disc spaces are preserved. The S-I joints are preserved. Two short metallic stents seen in the upper abdomen, overlying the left margin of the L1 vertebral body (arterial stents). IMPRESSION: Possible mild compression deformity of the L3 vertebral body (suggested on the lateral film). If this is a true finding, this appears to have occurred in the past 5 weeks. The L2 vertebral body had a normal appearance on CT scan of 12/12/18. No retropulsed fragment is seen. Clinical correlation is needed. Otherwise, vertebral body heights and disc spaces are preserved. Electronically signed by: Nancy Garduno On 01/15/2019 03:35:15 AM
--- NOTE | 2019-01-15 04:52 | IPNPDOC ---
Date Seen The patient was seen on 01/15/19. Progress Note SUBJECTIVE: Patient is a 58-year-old female that was found by her nurse at 1:00 this morning in between her toilet and the wall in her bathroom during her rounds. Patient had not called out for any assistance and going to the restroom as she has been cleared by physical therapy to transfer in and laid on her own without assistance. PT/OT may need to re-evaluate patient again before she is discharged home for safety in her wheelchair. ROS: Patient denies pain, numbness and tingling and her right leg, left BKA and bilateral upper extremities OBJECTIVE PHYSICAL EXAMINATION: VITAL SIGNS: Please see below. GENERAL: Patient resting comfortably in her bed without any complaints of pain plan or muscle stiffness, weakness HEENT: PERRLA 2, teeth are intact, head is normocephalic without trauma, bilaterally. Nares patent without discharge CARDIOVASCULAR: S1, S2, normal, regular rhythm and rate, no JVD, +1 pitting edema to Right lower foot. RESPIRATORY: Lungs clear to auscultation times all lobes. ABDOMINAL: Soft, nontender and nondistended, bowel sounds active 4 quadrants, no hepatomegaly or splenomegaly EXTREMITIES: Right lower leg Hemovac/woundvac with dressing clean, dry, and intact (CDI); left BKA. This Satinder wrap clean, dry, intact NEUROLOGICAL: Alert and oriented 3, cranial nerves II through XII intact grossly, mobility, unable to assess at this time PSYCHOLOGICAL: [no eye contact, not smiling, no complaints of loosing her head] LABORATORY DATA, IMAGING STUDIES, MICROBIOLOGY: Please see below. CT Head w/o IV contrast: No acute intracranial hemorrhage, no cerebral edema. Positive chronic age-related atrophic and small vessel micro-ischemic changes. Encephalomalacia anteriorly in the left frontal lobe. Lumbar sacral spine X-ray shows mild compression deformity L3 vertebral body. Radiology this may have happened 5 weeks ago. Patient did report to take during imaging that her lower back was hurting. L2 vertebral body on CT scan dated 12/12/2018 showed normal with no retropulsed fragments. DVT prophylaxis ordered?: H and currently receiving heparin 5000 IUs every 8 hours ASSESSMENT AND PLAN: This is a 58-year-old female presents with patient had not called out for any assistance and going to the restroom as she has been cleared by physical therapy to transfer in and laid on her own without assistance. PROBLEMS: 1. Unwitnessed fall in room suite bathroom 2. S/P Left AKA 3. Essential Hypertension 4. COPD 5. Right leg fasciotomy 6. Thromboembolism LE/aorta/iliac/LV thrombus s/p embolectomies and RLE fasciotomy. 7. Hyperkalemia 8. Post op anemia DISPOSITION: Room [id number] VS, I&O, 24H, Fishbone Vital Signs/I&O Vital Signs Date Time Temp Pulse Resp B/P (MAP) Pulse Ox O2 Delivery O2 Flow Rate FiO2 01/15/19 01:15 97.1 89 18 137/86 (103) 97 I&O- Last 24 Hours up to 6 AM 01/15/19 06:00 Intake Total 840 ml Balance 840 ml Laboratory Data 24H LABS Laboratory Tests 2 01/14/19 07:01: Immature Granulocyte % (Auto) 0.4, White Blood Count 5.6, Red Blood Count 4.15, Hemoglobin 12.9, Hematocrit 40.9, Mean Corpuscular Volume 98.6H, Mean Corpuscular Hemoglobin 31.1, Mean Corpuscular Hemoglobin Concent 31.5L, Red Cell Distribution Width 16.8H, Platelet Count 570H, Neutrophils (%) (Auto) 44.1, Lymphocytes (%) (Auto) 31.9, Monocytes (%) (Auto) 10.9H, Eosinophils (%) (Auto) 10.9H, Basophils (%) (Auto) 1.8H, Neutrophils # (Auto) 2.5, Lymphocytes # (Auto) 1.8, Monocytes # (Auto) 0.6, Eosinophils # (Auto) 0.6H, Basophils # (Auto) 0.1, Nucleated Red Blood Cells % (auto) 0.0, Anion Gap 4L, Glomerular Filtration Rate > 60.0, Blood Urea Nitrogen 14, Creatinine 0.66, Sodium Level 140, Potassium Level 4.3, Chloride Level 106, Carbon Dioxide Level 30, Calcium Level 9.1 CBC/BMP Laboratory Tests 01/14/19 07:01 Red Blood Count 4.15, Mean Corpuscular Volume 98.6 H, Mean Corpuscular Hemoglobin 31.1, Mean Corpuscular Hemoglobin Concent 31.5 L, Red Cell Distribution Width 16.8 H, Neutrophils (%) (Auto) 44.1, Lymphocytes (%) (Auto) 31.9, Monocytes (%) (Auto) 10.9 H, Eosinophils (%) (Auto) 10.9 H, Basophils (%) (Auto) 1.8 H, Neutrophils # (Auto) 2.5, Lymphocytes # (Auto) 1.8, Monocytes # (Auto) 0.6, Eosinophils # (Auto) 0.6 H, Basophils # (Auto) 0.1, Calcium Level 9.1 SHOBHA COBOS [facility] Jan 15, 2019 03:17
[2019-01-15 06:04] VITALS: BP 123/77
[2019-01-15] MEDS: APIXABAN 5 MG TAB (ELIQUIS) PO SCH ×2 (08:18→21:41)
[2019-01-15] MEDS: hydroCHLOROthiazide 12.5 MG CAPSULE PO SCH (08:18)
[2019-01-15] MEDS: ASPIRIN 81 MG CHEW TABLET PO SCH (08:18)
[2019-01-15] MEDS: DOCUSATE SODIUM 100 MG CAP PO SCH ×3 (08:18→21:41)
[2019-01-15] MEDS: PANTOPRAZOLE 40MG TAB (PROTONIX) PO SCH (08:18)
[2019-01-15] MEDS: GABAPENTIN 400 MG CAP PO SCH ×3 (08:18→21:42)
[2019-01-15] MEDS: METOPROLOL TART 25 MG TABLET PO SCH ×2 (08:18→21:42)
[2019-01-15] MEDS: ACETAMINOPHEN 500 MG TAB PO SCH ×3 (08:18→21:40)
[2019-01-15] MEDS: POLYSPORIN TOPICAL OINTMENT 15GM TOP SCH ×2 (08:19→21:00)
[2019-01-15] MEDS: NYSTATIN CREAM 15 GM EXT SCH ×2 (08:19→21:43)
--- NOTE | 2019-01-15 09:45 | IPNPDOC ---
Date Seen The patient was seen on 01/15/19. Progress Note SUBJECTIVE: Patient denies any complaints this morning. Noted to have a fall overnight. She stated that she slipped on her sock but supported herself down and sustained no injuries. CT head showed no acute pathology, XR lumbar showed slight compression deformity of L3 vertebral body. Patient has no tenderness or pain anywhere. OBJECTIVE PHYSICAL EXAMINATION: VITAL SIGNS: Please see below. General: No acute distress, Alert Eyes: Normal sclera, EOMI, HIEU HENT: Atraumatic, neck supple, moist mucous membranes Cardiovascular: Normal rate Pulmonary: Clear to auscultation b/l, no wheezing GI: Soft, nontender, nondistended Extremities: s/p L. AKA with overlying dress. RLE with wound vac in place inferolateral to the knee. Skin: Warm and dry Neuro: CN grossly intact. Strengths equal b/l. Psych: oriented x 3 LABORATORY DATA, IMAGING STUDIES, MICROBIOLOGY: Please see below. DVT? Patient on Eliquis ASSESSMENT AND PLAN: 1. s/p L. AKA - c/w Wound management, pain control. - PT/Rehab. 2. HTN - c/w current medications metoprolol 25mg BID. 3. COPD - Not in exacerbation. - Nebs if needed. 4. R. leg fasciotomy - Wound vac in place. Change MWF. - Leg swelling reportedly improved per patient. 5. Thromboembolism - LE/aorta/iliac/LV thrombus s/p embolectomies and RLE fasciotomy. - c/w ASA, statin, Eliquis. - Will require outpatient evaluation of hypercoagulability post acute episode. 6. Hyperkalemia - resolved. Monitor daily BMPs. - Last K 4.3. Started on HCTZ per primary rehab team, should help with both stabilizing BP as well as keeping K down. 7. Post op anemia - Improved. s/p 1 pRBC. - Monitor routine CBCs. 8. Slight compression fracture in L3 - Incidental findings. No tenderness. - Order vitamin D and calcium level. - Ca and Vitamin D supplement. VS, I&O, 24H, Fishbone Vital Signs/I&O Vital Signs Date Time Temp Pulse Resp B/P (MAP) Pulse Ox O2 Delivery O2 Flow Rate FiO2 01/15/19 08:18 77 123/77 01/15/19 06:04 97.0 18 96 I&O- Last 24 Hours up to 6 AM 01/15/19 06:00 Intake Total 840 ml Balance 840 ml SASHA TRAYLOR MD Jan 15, 2019 09:45
[2019-01-15 10:24] LABS: HEMATOCRIT 40.3 % (36.0-47.0); MEAN CORPUSCULAR HEMOGLOBIN 32.4 pg (27.0-33.0); MEAN CORPUSCULAR HGB CONC 32.3 g/dl (32.0-36.5); MEAN CORPUSCULAR VOLUME 100.5 fl (80.0-96.0); PLATELET COUNT, AUTOMATED 533 10^3/uL (150-450); RED BLOOD COUNT 4.01 10^6/uL (4.00-5.40); WHITE BLOOD COUNT 6.4 10^3/uL (4.0-10.0)
[2019-01-15 10:48] LABS: BLOOD UREA NITROGEN 18 MG/DL (7-18); CALCIUM LEVEL 8.6 MG/DL (8.5-10.1); CARBON DIOXIDE LEVEL 27 MEQ/L (21-32); CHLORIDE LEVEL 106 MEQ/L (98-107); CREATININE FOR GFR 0.64 MG/DL (0.55-1.30); GLOMERULAR FILTRATION RATE > 60.0 (>51); GLUCOSE, FASTING 97 MG/DL (70-100); POTASSIUM SERUM 4.6 MEQ/L (3.5-5.1); SODIUM LEVEL 138 MEQ/L (136-145)
[2019-01-15] MEDS: VITAMIN D (CHOLECALCIFEROL) 400 INTERNATIONAL UNITS TAB PO SCH (12:30)
[2019-01-15 14:00] VITALS: BP 126/75
[2019-01-15 20:00] VITALS: BP 111/72
[2019-01-15] MEDS: MIRTAZAPINE 7.5MG PER 1/2 TABLET PO SCH (21:41)
[2019-01-15] MEDS: TEMAZEPAM 7.5 MG CAP PO PRN (21:41)
[2019-01-15] MEDS: SENNA 8.6 MG TAB (SENOKOT) PO SCH (21:41)
[2019-01-15] MEDS: ATORVASTATIN 20 MG TAB PO SCH (21:42)
[2019-01-16 05:29] VITALS: BP 132/81
[2019-01-16] MEDS: PANTOPRAZOLE 40MG TAB (PROTONIX) PO SCH (08:47)
[2019-01-16] MEDS: VITAMIN D (CHOLECALCIFEROL) 400 INTERNATIONAL UNITS TAB PO SCH (08:48)
[2019-01-16] MEDS: hydroCHLOROthiazide 12.5 MG CAPSULE PO SCH (08:48)
[2019-01-16] MEDS: ASPIRIN 81 MG CHEW TABLET PO SCH (08:48)
[2019-01-16] MEDS: DOCUSATE SODIUM 100 MG CAP PO SCH ×3 (08:48→21:00)
[2019-01-16] MEDS: ACETAMINOPHEN 500 MG TAB PO SCH ×3 (08:48→22:14)
[2019-01-16] MEDS: GABAPENTIN 400 MG CAP PO SCH ×3 (08:48→22:16)
[2019-01-16] MEDS: APIXABAN 5 MG TAB (ELIQUIS) PO SCH ×2 (08:48→22:15)
[2019-01-16] MEDS: METOPROLOL TART 25 MG TABLET PO SCH ×2 (08:48→22:15)
[2019-01-16] MEDS: NYSTATIN CREAM 15 GM EXT SCH ×2 (08:49→22:17)
[2019-01-16] MEDS: POLYSPORIN TOPICAL OINTMENT 15GM TOP SCH ×2 (08:49→21:00)
[2019-01-16 09:43] LABS: BASO # 0.1 10^3/uL (0.0-0.2); BASO % 1.5 % (0.0-1.0); EOS # 0.4 10^3/uL (0.0-0.5); EOS % 6.3 % (0.0-3.0); HEMATOCRIT 43.4 % (36.0-47.0); HEMOGLOBIN 14.3 g/dl (12.0-15.5); LYMPH # 1.6 10^3/uL (1.5-5.0); LYMPH % 24.2 % (24.0-44.0); MEAN CORPUSCULAR HEMOGLOBIN 33.8 pg (27.0-33.0); MEAN CORPUSCULAR HGB CONC 32.9 g/dl (32.0-36.5); MEAN CORPUSCULAR VOLUME 102.6 fl (80.0-96.0); MONO # 0.5 10^3/uL (0.0-0.8); MONO % 8.1 % (0.0-5.0); NEUTROPHILS # 3.9 10^3/uL (1.5-8.5); NEUTROPHILS % 59.6 % (36.0-66.0); PLATELET COUNT, AUTOMATED 538 10^3/uL (150-450); RED BLOOD COUNT 4.23 10^6/uL (4.00-5.40); WHITE BLOOD COUNT 6.6 10^3/uL (4.0-10.0)
[2019-01-16 10:09] LABS: BLOOD UREA NITROGEN 18 MG/DL (7-18); CALCIUM LEVEL 9.5 MG/DL (8.5-10.1); CARBON DIOXIDE LEVEL 31 MEQ/L (21-32); CHLORIDE LEVEL 104 MEQ/L (98-107); CREATININE FOR GFR 0.68 MG/DL (0.55-1.30); GLOMERULAR FILTRATION RATE > 60.0 (>51); GLUCOSE, FASTING 105 MG/DL (70-100); SODIUM LEVEL 139 MEQ/L (136-145)
[2019-01-16 14:00] VITALS: BP 135/83
--- NOTE | 2019-01-16 16:45 | IPNPDOC ---
PM&R Progress Note DATE OF SERVICE: Jan 16, 2019 [employer] Progress Note Subjective: Patient seen walking with RW short distance without pain. She is able to go to her boyfriend's parents house and work on permanent DSS housing from there. REVIEW OF SYSTEMS: The following is a completed review of systems and has been reviewed. Review of systems otherwise unremarkable. PAIN: Patient self reports right calf pain EYES: No recent vision changes EARS, NOSE, & THROAT: No throat pain, or dysphagia, or rhinorrhea CARDIOVASCULAR: Denies chest pain or palpitations PULMONARY: Denies shortness of breath GASTROINTESTINAL: Denies constipation/diarrhea GENITOURINARY: denies dysuria MUSCULOSKELETAL: left aka and right fasciotomies NEUROLOGICAL:no tremor or seizure activity HEMATOLOGICAL: +PAD SKIN: left aka incision and right calf fasciotomies PSYCHIATRIC: Unremarkable All other review of systems found to be negative. PHYSICAL EXAMINATION: VITAL SIGNS: Please see below. GENERAL: Pleasant and cooperative. No acute distress. HEENT: PERRL. Extraocular movements intact. Clear conjunctiva CARDIOVASCULAR: Regular rate and rhythm. No murmurs, rubs, or gallops LUNGS: Clear to auscultation bilaterally. No wheezes. No rhonchi ABDOMEN: Soft, nontender, nondistended. Positive bowel sounds. Normal active bowel sounds NEUROLOGICAL: Alert and oriented times three. Cranial nerves II through XII grossly intact. Sensation grossly intact EXTREMITIES: 5\5 strength bilateral upper extremities. 5-\5 strength right hip flexion, knee extension, 3/5 ankle DF and EHL, 5-/5 strength in left hip flexion extremity SKIN: left residual limb c/d/i without erythema or induration right calf fasciotomies c/d/i with healthy appearing muscle tissue, no inudration bilateral groin incisionsc/d/i Buttock and sacral rash erythemaous- improving 58F pmh PAD presents with left AKA and right LE fasciotomy. PLAN: 1. Rehab: PT-strengthen /maintain ROM/stretch bilat LE- prevent left hip flexion and abduction contracture, ok to trial short distances WBAT to RLE, able to bump up at least 30 steps, c/u room privileges OT- strengthen /maintain ROM/stretch bilat UE 2. Neuro: stable, avoid delirogenic meds 3. Cardiac: s/p recent NSTEMI with cath positive for takotsubo HI, EF 65% -LV thrombus with emboli in the aorta, iliac, and bilateral LE s/p embolectomies with right lower leg fasciotomy and left AKA, c/u ASA and Eliquis -has f/u with Dr. Forrest 01/22/19 1:45 pm- -will need outpatient hypercoagulation work-up -HTN, -f/u with Dr. Yeung as outpatient, c/u on lower villatoro of beta-ana, potassium approaching high normal s/p one time dose kayexelate , not on k- sparing diuretic/ORLY/ARB, c/u low dose HCTZ, BP improving -HLD, c/u statin 4. Resp: pmh COPD, current smoker, c/u Duonebs prn, smoking cessation education 5. Pain: oxycodone, will increase gabapentin to 400 TID for neuropathic pain and monitor, c/u tylenol 6. Renal: recent angiogram suspicious for renal emboli, will monitor kidney function and consult renal prn 7. GI ppx: protonix, pmh hemorrhoids, FOBT negative 8. DVT ppx: Eliquis 9. SKin: wound vac to be changed [id number]-Hqbe, howeer will switch to wet-to-dry today as good granulation tissue and monitor while on unit -bacitracin to bilateral groin incisions and cover with gauze- healing well -left AKA incision slightly more erythematous than on admission and right fasciotomy with mild erythema yen-wound, c/u Doxycycline to cover MRSA -nystatin cream to buttock for what appears to be a fungal infection -leukocytosis improved and CRP and ESR trending down 10/ Hyperkalemia 01/01/19 s/p kayexealte improved, d/c'd K, c/u to monitor 11. Heme: postop anemia s/p 1 unit rbcs with resolution of symptoms, negative FOBT 12. Insomnia- Temazepam, c/u restoril 7.5mg 13. : patient reporting cloudy urine without dysuria, will check UA, suspect possible yeast infection following course of antibiotics 9. Dispo: 01/16/19 to [facility] housing Allergies Coded Allergies: No Known Allergies (Unverified , 11/24/18) Vital Signs Vital Signs Date Time Temp Pulse Resp B/P (MAP) Pulse Ox O2 Delivery O2 Flow Rate FiO2 01/16/19 14:00 97.8 95 18 135/83 (100) 98 Laboratory Data CBC/BMP Laboratory Tests 01/16/19 09:07 Red Blood Count 4.23, Mean Corpuscular Volume 102.6 H, Mean Corpuscular Hemoglobin 33.8 H, Mean Corpuscular Hemoglobin Concent 32.9, Red Cell Distribution Width 16.6 H, Neutrophils (%) (Auto) 59.6, Lymphocytes (%) (Auto) 24.2, Monocytes (%) (Auto) 8.1 H, Eosinophils (%) (Auto) 6.3 H, Basophils (%) (Auto) 1.5 H, Neutrophils # (Auto) 3.9, Lymphocytes # (Auto) 1.6, Monocytes # (Auto) 0.5, Eosinophils # (Auto) 0.4, Basophils # (Auto) 0.1, Calcium Level 9.5 Labs 24H Laboratory Tests 2 01/16/19 09:07: Immature Granulocyte % (Auto) 0.3, White Blood Count 6.6, Red Blood Count 4.23, Hemoglobin 14.3, Hematocrit 43.4, Mean Corpuscular Volume 102.6H, Mean Corpuscular Hemoglobin 33.8H, Mean Corpuscular Hemoglobin Concent 32.9, Red Cell Distribution Width 16.6H, Platelet Count 538H, Neutrophils (%) (Auto) 59.6, Lymphocytes (%) (Auto) 24.2, Monocytes (%) (Auto) 8.1H, Eosinophils (%) (Auto) 6.3H, Basophils (%) (Auto) 1.5H, Neutrophils # (Auto) 3.9, Lymphocytes # (Auto) 1.6, Monocytes # (Auto) 0.5, Eosinophils # (Auto) 0.4, Basophils # (Auto) 0.1, Nucleated Red Blood Cells % (auto) 0.0, Anion Gap 4L, Glomerular Filtration Rate > 60.0, Blood Urea Nitrogen 18, Creatinine 0.68, Sodium Level 139, Potassium Level 4.0, Chloride Level 104, Carbon Dioxide Level 31, Calcium Level 9.5 Current Medications Current Medications Current Medications Medications (Trade) Dose Ordered Sig/Kevin Route PRN Reason Start Time Stop Time Status Last Admin Dose Admin Acetaminophen (Tylenol Tab) 650 mg Q4HP PRN PO fever/MILD PAIN (PS 1-4) 12/29/18 12:15 01/02/19 16:56 DC Acetaminophen (Tylenol Tab) 1,000 mg TID PO 01/02/19 21:00 01/16/19 08:48 Albuterol/ Ipratropium (Duoneb (Ipr 0.5mg/Alb 2.5mg)) 3 ml RTID NEB 12/29/18 14:00 12/30/18 07:43 DC 12/30/18 07:49 Apixaban (Eliquis) 5 mg BID PO 01/03/19 09:00 01/16/19 08:48 Apixaban (Eliquis) 10 mg BID PO 12/29/18 21:00 01/02/19 23:00 DC 01/02/19 21:21 Aspirin (Aspirin Chewable) 81 mg DAILY PO 12/30/18 09:00 01/16/19 08:48 Atorvastatin Calcium (Lipitor) 80 mg QHS PO 12/29/18 21:00 01/15/19 21:42 Bacitracin/ Polymyxin B Sulfate (Polysporin Top Oint) 1 dose BID TOP 01/01/19 21:00 01/16/19 08:49 Docusate Sodium (Colace) 100 mg BID PO 12/29/18 21:00 12/30/18 12:13 DC 12/30/18 10:15 Docusate Sodium (Colace) 100 mg TID PO 12/30/18 16:00 01/16/19 08:48 Doxycycline Hyclate (Vibramycin) 100 mg BID PO 01/01/19 15:45 01/07/19 14:34 DC 01/07/19 09:21 Gabapentin (Neurontin) 300 mg TID PO 12/29/18 16:00 01/02/19 16:54 DC 01/02/19 08:36 Gabapentin (Neurontin) 400 mg TID PO 01/02/19 21:00 01/16/19 08:48 Home Med (Med Rec Complete!) ASDIRECTED XX 12/29/18 13:15 12/29/18 13:16 DC Hydrochlorothiazide (Hydrodiuril) 12.5 mg DAILY PO 01/12/19 11:00 01/16/19 08:48 Ipratropium Brinkley (Atrovent 0.02%) 0.25 mg RTID INH 12/30/18 08:00 01/02/19 16:54 DC 01/01/19 20:08 Magnesium Hydroxide (Milk Of Magnesia) 30 ml DAILYPRN PRN PO CONSTIPATION 12/30/18 11:45 01/12/19 09:02 Metoprolol Tartrate (Lopressor) 25 mg BID PO 01/04/19 21:00 01/16/19 08:48 Metoprolol Tartrate (Lopressor) 50 mg BID PO 12/29/18 21:00 01/04/19 09:25 DC 01/04/19 07:52 Mirtazapine (Remeron) 7.5 mg QHS PO 01/09/19 21:00 01/15/19 21:41 Miscellaneous (Unresolved Clarification Entry) SEE LABEL COMMENTS DAILY XX 01/09/19 09:00 01/10/19 07:26 DC Miscellaneous (Unresolved Clarification Entry) SEE LABEL COMMENTS DAILY XX 01/11/19 09:00 01/11/19 13:03 DC Miscellaneous (Unresolved Clarification Entry) SEE LABEL COMMENTS DAILY XX 01/15/19 09:00 01/16/19 06:12 DC Miscellaneous (Unresolved Clarification Entry) SEE LABEL COMMENTS DAILY XX 01/16/19 09:00 01/16/19 12:57 DC Nitroglycerin (Nitrostat (1/ 200)) 0.3 mg Q5MP PRN SL CHEST PAIN 12/29/18 12:15 Nystatin (Mycostatin) 1 dose BID EXT 01/05/19 21:00 01/16/19 08:49 Oxycodone HCl (Roxicodone, Oxyir) 5 mg Q4HP PRN PO PAIN 12/29/18 12:15 01/09/19 16:20 DC Oxycodone HCl (Roxicodone, Oxyir) 10 mg Q6HP PRN PO SEVERE PAIN (PS 8-10) 12/29/18 12:15 01/02/19 16:56 DC 01/02/19 08:37 Pantoprazole Sodium (Protonix) 40 mg DAILY PO 12/29/18 09:00 01/16/19 08:47 Potassium Chloride (Micro-K Extencaps) 20 meq DAILY PO 12/30/18 09:00 01/01/19 19:40 DC 01/01/19 08:42 Senna (Senokot) 1 tab QHS PO 12/29/18 21:00 01/15/19 21:41 Sodium Chloride (Saline Lock Flush) 2 ml ASDIRECTED PRN IV SEE LABEL COMMENTS 01/04/19 17:00 01/06/19 04:44 DC Sodium Chloride (Saline Lock Flush) 2 ml SLF IV 01/04/19 22:00 01/06/19 04:44 DC Temazepam (Restoril) 7.5 mg QHSP PRN PO INSOMNIA 12/30/18 12:00 01/15/19 21:41 Vitamin D (Vitamin D) 1,200 units DAILY PO 01/15/19 09:00 01/16/19 08:48 ALONZO GURROLA MD Jan 16, 2019 16:45
[2019-01-16 20:00] VITALS: BP 121/97
[2019-01-16] MEDS: TEMAZEPAM 7.5 MG CAP PO PRN (22:13)
[2019-01-16] MEDS: MIRTAZAPINE 7.5MG PER 1/2 TABLET PO SCH (22:13)
[2019-01-16] MEDS: ATORVASTATIN 20 MG TAB PO SCH (22:15)
[2019-01-16] MEDS: SENNA 8.6 MG TAB (SENOKOT) PO SCH (22:16)
[2019-01-17 06:00] VITALS: BP 133/88
[2019-01-17] MEDS: ASPIRIN 81 MG CHEW TABLET PO SCH (08:50)
[2019-01-17] MEDS: DOCUSATE SODIUM 100 MG CAP PO SCH ×3 (08:50→21:33)
[2019-01-17] MEDS: GABAPENTIN 400 MG CAP PO SCH ×3 (08:50→21:30)
[2019-01-17] MEDS: PANTOPRAZOLE 40MG TAB (PROTONIX) PO SCH (08:50)
[2019-01-17] MEDS: ACETAMINOPHEN 500 MG TAB PO SCH ×3 (08:51→21:31)
[2019-01-17] MEDS: VITAMIN D (CHOLECALCIFEROL) 400 INTERNATIONAL UNITS TAB PO SCH (08:51)
[2019-01-17] MEDS: hydroCHLOROthiazide 12.5 MG CAPSULE PO SCH (08:53)
[2019-01-17] MEDS: POLYSPORIN TOPICAL OINTMENT 15GM TOP SCH ×2 (08:54→21:00)
[2019-01-17] MEDS: NYSTATIN CREAM 15 GM EXT SCH ×2 (08:54→21:33)
[2019-01-17] MEDS: METOPROLOL TART 25 MG TABLET PO SCH ×2 (08:54→21:30)
[2019-01-17] MEDS: APIXABAN 5 MG TAB (ELIQUIS) PO SCH ×2 (08:54→21:31)
[2019-01-17 14:00] VITALS: BP 132/60
[2019-01-17 20:00] VITALS: BP 123/90
[2019-01-17] MEDS: ATORVASTATIN 20 MG TAB PO SCH (21:31)
[2019-01-17] MEDS: MIRTAZAPINE 7.5MG PER 1/2 TABLET PO SCH (21:31)
[2019-01-17] MEDS: SENNA 8.6 MG TAB (SENOKOT) PO SCH (21:33)
[2019-01-17] MEDS: TEMAZEPAM 7.5 MG CAP PO PRN (22:17)
[2019-01-18 06:00] VITALS: BP 129/80
[2019-01-18 07:14] LABS: BASO # 0.1 10^3/uL (0.0-0.2); BASO % 1.3 % (0.0-1.0); EOS # 0.6 10^3/uL (0.0-0.5); EOS % 8.6 % (0.0-3.0); HEMOGLOBIN 12.4 g/dl (12.0-15.5); LYMPH # 1.6 10^3/uL (1.5-5.0); MEAN CORPUSCULAR HEMOGLOBIN 31.2 pg (27.0-33.0); MEAN CORPUSCULAR HGB CONC 31.8 g/dl (32.0-36.5); MEAN CORPUSCULAR VOLUME 98.2 fl (80.0-96.0); MONO # 0.7 10^3/uL (0.0-0.8); NEUTROPHILS # 3.7 10^3/uL (1.5-8.5); PLATELET COUNT, AUTOMATED 467 10^3/uL (150-450); RED BLOOD COUNT 3.97 10^6/uL (4.00-5.40); WHITE BLOOD COUNT 6.7 10^3/uL (4.0-10.0)
[2019-01-18 07:41] LABS: BLOOD UREA NITROGEN 18 MG/DL (7-18); CALCIUM LEVEL 8.6 MG/DL (8.5-10.1); CARBON DIOXIDE LEVEL 26 MEQ/L (21-32); CHLORIDE LEVEL 109 MEQ/L (98-107); CREATININE FOR GFR 0.61 MG/DL (0.55-1.30); GLOMERULAR FILTRATION RATE > 60.0 (>51); GLUCOSE, FASTING 104 MG/DL (70-100); POTASSIUM SERUM 4.4 MEQ/L (3.5-5.1); SODIUM LEVEL 141 MEQ/L (136-145)
[2019-01-18] MEDS: POLYSPORIN TOPICAL OINTMENT 15GM TOP SCH (09:00)
[2019-01-18] MEDS: ASPIRIN 81 MG CHEW TABLET PO SCH (09:31)
[2019-01-18] MEDS: PANTOPRAZOLE 40MG TAB (PROTONIX) PO SCH (09:31)
[2019-01-18] MEDS: DOCUSATE SODIUM 100 MG CAP PO SCH (09:31)
[2019-01-18] MEDS: VITAMIN D (CHOLECALCIFEROL) 400 INTERNATIONAL UNITS TAB PO SCH (09:31)
[2019-01-18] MEDS: hydroCHLOROthiazide 12.5 MG CAPSULE PO SCH (09:31)
[2019-01-18 09:32] VITALS: BP 129/80
[2019-01-18] MEDS: ACETAMINOPHEN 500 MG TAB PO SCH (09:32)
[2019-01-18] MEDS: METOPROLOL TART 25 MG TABLET PO SCH (09:32)
[2019-01-18] MEDS: GABAPENTIN 400 MG CAP PO SCH (09:32)
[2019-01-18] MEDS: APIXABAN 5 MG TAB (ELIQUIS) PO SCH (09:33)
[2019-01-18] MEDS: NYSTATIN CREAM 15 GM EXT SCH (09:34)
[2019-01-18] MEDS ORDERED: NITR0.3S4 SL (10:21)
[2019-01-18] MEDS ORDERED: METO1TAB87 PO (10:21)
[2019-01-18] MEDS ORDERED: HYDR12CA PO (10:21)
[2019-01-18] MEDS ORDERED: ATOR1TAB21 PO (10:21)
[2019-01-18] MEDS ORDERED: PANT40TA3 PO (10:21)
[2019-01-18] MEDS ORDERED: ASPI81CH8 PO (10:21)
[2019-01-18] MEDS ORDERED: REME15TA PO (10:21)
[2019-01-18] MEDS ORDERED: ELIQ5TAB PO (10:21)
[2019-01-18] MEDS ORDERED: GABA-845 PO (10:21)
[2019-01-18 14:00] VITALS: BP 134/84
== END 2019-01-18 15:15 | disposition home health service (06) | DRG 197 ==
LOC: M PM&R 11:45
PROVIDERS: ADMIT Physical Medicine & Rehabilitation; ATTEND Physical Medicine & Rehabilitation
PROC: 30233N1 Transfusion of Nonautologous Red Blood Cells into Peripheral Vein, Percutaneous Approach (ICD-10-PCS; principal; 2019-01-04)
DX: I70.202 Unspecified atherosclerosis of native arteries of extremities, left leg (principal); I10 Essential (primary) hypertension; F17.200 Nicotine dependence, unspecified, uncomplicated; I42.9 Cardiomyopathy, unspecified; G47.00 Insomnia, unspecified; J44.9 Chronic obstructive pulmonary disease, unspecified; D64.9 Anemia, unspecified; E87.5 Hyperkalemia; I21.4 Non-ST elevation (NSTEMI) myocardial infarction; I51.81 Takotsubo syndrome; Z79.01 Long term (current) use of anticoagulants; Z79.899 Other long term (current) drug therapy; Z89.612 Acquired absence of left leg above knee; Z86.718 Personal history of other venous thrombosis and embolism; Z90.49 Acquired absence of other specified parts of digestive tract; Z79.82 Long term (current) use of aspirin

== ENCOUNTER → 2019-03-19 | Outpatient (CLI) | payer OTHER ==
[~2019-03-19] MED LIST changes: +ASPI81CH8 PO; +ASPI81TA85 PO; +ATOR1TAB21 PO; +ATOR80TA59 PO; +DULC10SU2 PR; +ELIQ5TAB PO; +GABA-845 PO; +HYDR12CA PO; +ISOVUE-370 76% 100ML VIAL (Q9967) As Ordered ONE; +LORA1TAB12 PO; +METO1TAB87 PO; +METO50TA7 PO; +NITR0.3S4 SL; -OMEP40CA2 PO; +OMEP40CA97 PO; +OXYC1TAB23 PO; +PANT40TA3 PO; +PATIENT COMMENTS; +POTA1TAB14 PO; +REME15TA PO
--- NOTE | 2019-03-20 04:35 | REP ---
Clinical: Pulmonary nodules. Technique: Axial contrast enhanced images from the thoracic inlet to the upper abdomen with coronal and sagittal re-formations using 100 ml Isovue 370 intravenous contrast material. Comparison: 11/24/2018. Findings: Moderate emphysematous changes with scattered scarring and bronchiectasis remains relatively stable. Previously noted area of density in the right middle lobe has near completely resolved leaving ninth minimal presumed scarring. Previously identified 6 mm subpleural nodule in the periphery of the right lower lobe (image 75) remains stable. Few scattered small 2-3 mm densities are unchanged. 3.5 cm pneumatocele in the left lower lobe is stable. No new acute area of consolidation or significant nodule/mass identified. No effusion. No pneumothorax. No adenopathy. Mediastinum demonstrates stable thoracic aorta, pulmonary vasculature and heart/pericardium. Impression: 1. The area of opacity in the right middle lobe has near completely resolved with mild presumed residual scarring noted. 6 mm subpleural right lower lobe nodule remain stable along with further stable chronic changes. Consider reevaluation in 6-9 months to confirm stability. Electronically Signed by Douglas Vences MD 03/20/2019 04:26 A
== END ==
LOC: M RAD 14:24
PROVIDERS: ATTEND Family Medicine
DX: R91.8 Other nonspecific abnormal finding of lung field (principal)
CPT/HCPCS: 71260; Q9967

== ENCOUNTER → 2019-07-19 | Outpatient (REF) | payer OTHER ==
[~2019-07-19] MED LIST changes: -ISOVUE-370 76% 100ML VIAL (Q9967) As Ordered ONE; -LORA1TAB12 PO; +LORA1TAB4 PO
[2019-07-19 13:51] LABS: BASO # 0.1 10^3/uL (0.0-0.2); BASO % 0.8 % (0.0-1.0); EOS # 0.3 10^3/uL (0.0-0.5); EOS % 2.6 % (0.0-3.0); HEMATOCRIT 48.6 % (36.0-47.0); HEMOGLOBIN 17.9 g/dl (12.0-15.5); LYMPH # 2.3 10^3/uL (1.5-5.0); LYMPH % 23.9 % (24.0-44.0); MEAN CORPUSCULAR HEMOGLOBIN 36.4 pg (27.0-33.0); MEAN CORPUSCULAR VOLUME 98.8 fl (80.0-96.0); MONO # 0.8 10^3/uL (0.0-0.8); MONO % 7.9 % (0.0-5.0); NEUTROPHILS # 6.1 10^3/uL (1.5-8.5); NEUTROPHILS % 64.5 % (36.0-66.0); PLATELET COUNT, AUTOMATED 495 10^3/uL (150-450); RED BLOOD COUNT 4.92 10^6/uL (4.00-5.40); WHITE BLOOD COUNT 9.5 10^3/uL (4.0-10.0)
[2019-07-19 13:54] LABS: MEAN CORPUSCULAR HGB CONC 36.8 g/dl (32.0-36.5)
[2019-07-19 13:57] LABS: ALBUMIN 3.8 GM/DL (3.2-5.2); ALT/SGPT 29 U/L (12-78); BILIRUBIN,TOTAL 0.6 MG/DL (0.2-1.0); BLOOD UREA NITROGEN 14 MG/DL (7-18); CALCIUM LEVEL 9.4 MG/DL (8.5-10.1); CARBON DIOXIDE LEVEL 30 MEQ/L (21-32); CHLORIDE LEVEL 103 MEQ/L (98-107); CHOLESTEROL LEVEL 155 MG/DL (<200); CHOLESTEROL RISK RATIO 1.913 (<5); CREATININE FOR GFR 0.79 MG/DL (0.55-1.30); GLOMERULAR FILTRATION RATE > 60.0 (>51); GLUCOSE, FASTING 101 MG/DL (70-100); HDL CHOLESTEROL 81 MG/DL (>40); LDL CHOLESTEROL 50 MG/DL (<100); NON-HDL-C 74 MG/DL; POTASSIUM SERUM 4.5 MEQ/L (3.5-5.1); SODIUM LEVEL 138 MEQ/L (136-145); TRIGLYCERIDES LEVEL 118 MG/DL (<150)
[2019-07-19 14:36] LABS: HEMOGLOBIN A1c 5.7 %
== END ==
LOC: M LAB REF 12:57
PROVIDERS: ATTEND Family Medicine
DX: Z13.9 Encounter for screening, unspecified (principal)

== ENCOUNTER → 2019-12-26 | Outpatient (REF) | payer OTHER, MEDICAID ==
[~2019-12-26] MED LIST changes: +ASPI1CHW3 PO; -ASPI81TA85 PO; +ASPI81TA86 PO; +HYDR500C PO; +PANT40TA29 PO; -PANT40TA3 PO; +TRAZ-257 PO
[2020-01-26 12:05] LABS: BASO # 0.1 10^3/uL (0.0-0.2); EOS # 0.2 10^3/uL (0.0-0.5); EOS % 2.1 % (0.0-3.0); HEMATOCRIT 50.1 % (36.0-47.0); HEMOGLOBIN 18.2 g/dl (12.0-15.5); LYMPH # 1.9 10^3/uL (1.5-5.0); LYMPH % 19.1 % (24.0-44.0); MEAN CORPUSCULAR HEMOGLOBIN 35.8 pg (27.0-33.0); MEAN CORPUSCULAR HGB CONC 36.3 g/dl (32.0-36.5); MEAN CORPUSCULAR VOLUME 98.6 fl (80.0-96.0); MONO # 0.8 10^3/uL (0.0-0.8); MONO % 7.9 % (0.0-5.0); NEUTROPHILS # 6.8 10^3/uL (1.5-8.5); NEUTROPHILS % 69.7 % (36.0-66.0); PLATELET COUNT, AUTOMATED 621 10^3/uL (150-450); RED BLOOD COUNT 5.08 10^6/uL (4.00-5.40); WHITE BLOOD COUNT 9.8 10^3/uL (4.0-10.0)
== END ==
LOC: M LAB REF 09:58
PROVIDERS: ATTEND Nurse Practitioner Family
DX: D75.1 Secondary polycythemia (principal)

== ENCOUNTER 2019-12-31 09:50 | Day surgery (SDC) | payer OTHER, MEDICAID ==
[~2019-12-31 09:50] MED LIST changes: -ASPI1CHW3 PO; -HYDR500C PO; +LIDOCAINE 2% MDV 20ML VIAL ONE; -TRAZ-257 PO; +propofoL 200 MG/20 ML VIAL ONE
[2019-12-31] MEDS ORDERED: fentaNYL 100 MCG/2 ML INJECTION (J3010) ONE (10:33)
[2020-03-18] MEDS ORDERED: ASPI1CHW3 PO (10:41)
[2020-03-18] MEDS ORDERED: TRAZ-257 PO (10:41)
[2020-03-18] MEDS ORDERED: HYDR500C PO (11:04)
== END 2019-12-31 12:40 | disposition home or self-care (01) ==
LOC: M SDC 09:50
PROVIDERS: ATTEND Internal Medicine Gastroenterology
DX: K64.0 First degree hemorrhoids (principal); D12.4 Benign neoplasm of descending colon; K57.30 Diverticulosis of large intestine without perforation or abscess without bleeding; R10.31 Right lower quadrant pain; K31.89 Other diseases of stomach and duodenum; R10.13 Epigastric pain; R11.2 Nausea with vomiting, unspecified; I25.2 Old myocardial infarction; F17.210 Nicotine dependence, cigarettes, uncomplicated; Z79.82 Long term (current) use of aspirin; Z79.899 Other long term (current) drug therapy
CPT/HCPCS: 43239; 45385; 88305; J3010

== ENCOUNTER → 2020-02-06 | Outpatient (CLI) | payer OTHER ==
[~2020-02-06] MED LIST changes: +ASPI1CHW3 PO; +HYDR500C PO; +ISOVUE-370 76% 100ML VIAL As Ordered ONE; -LIDOCAINE 2% MDV 20ML VIAL ONE; +REGL5TAB2 PO; +TRAZ-257 PO; -propofoL 200 MG/20 ML VIAL ONE
--- NOTE | 2020-02-25 15:13 | REP ---
CT CHEST WITH INTRAVENOUS (IV) CONTRAST: (REPEAT DICTATION) HISTORY: Follow-up lung nodules. COMPARISON: Chest CT studies are reviewed from 03/19/2019 and 11/24/2018. CT CONTRAST DOSE: 75 mL of intravenous Isovue-370 is administered. FINDINGS: Preliminary digital cherry cutter radiograph demonstrates an old healed rib fracture on the right and hyperinflated lung ambrose. Axial CT images again demonstrate fairly impressive diffuse emphysematous change in the upper lobes. There is a stable bullous in the left lower lobe. The 1.5 cm ill-defined nodular opacity previously identified in the right middle lobe has resolved. There is some linear fibrosis in the right middle lobe in its wake. The other small pulmonary nodules are again seen unchanged in the interval since the 11/24/2018 study. These include a 3 mm nodule in the left lower lobe on Page 82, a pleural-based 4 mm nodule in the right lower lobe on Page 74, a 2-3 mm peripheral subpleural nodule in the left upper lobe seen on Page 43, and a tiny 2 mm nodule in the right upper lobe on Page 30. There is also a stable 3 mm nodular opacity in the left upper lobe on Page 36, which is unchanged as well. No new pulmonary nodule is appreciated. No bony destructive lesion is appreciated. No hilar or mediastinal mass is seen. No pleural or pericardial effusion is observed. There is no CT evidence of pulmonary embolus, thoracic aortic dissection, or vascular malformation. The ascending aorta measures 3.4 cm in AP dimension at the level of the right main pulmonary artery. IMPRESSION: Hyperinflation bilateral upper emphysema. Multiple stable pulmonary nodules. No change since 11/24/2018. Consider follow-up in one year. JADE
== END ==
LOC: M RAD 09:16
PROVIDERS: ATTEND Internal Medicine Hematology & Oncology
DX: J43.9 Emphysema, unspecified (principal); R91.8 Other nonspecific abnormal finding of lung field
CPT/HCPCS: 71260; Q9967

== ENCOUNTER → 2020-02-28 | Outpatient (CLI) | payer OTHER ==
[~2020-02-28] MED LIST changes: -ASPI1CHW3 PO; -HYDR500C PO; -ISOVUE-370 76% 100ML VIAL As Ordered ONE; -REGL5TAB2 PO; -TRAZ-257 PO
--- NOTE | 2020-02-28 10:21 | REP ---
INDICATION: MYELOPROLIFERATIVE DISEASE COMPARISON: 04/15/2017 TECHNIQUE: Real time B-mode byrd scale ultrasound examination using curved array transducer. FINDINGS: Liver, spleen, and pancreas are normal in contour, size, echogenicity, and overall appearance. No focal hepatic, splenic or pancreatic lesions are identified. Gallbladder is normal without gallstones, wall thickening, or pericholecystic fluid. No biliary ductal dilatation is appreciated although the common bile duct measures 7 mm in diameter (upper limits of normal). The bilateral kidneys are normal in rate form shape without hydronephrosis or obvious abnormality. Right kidney measures 9.8 x 4.6 x 3.8 cm. Left kidney measures 9.6 x 4.3 x 4.2 cm. Atherosclerotic changes to the visualized abdominal aorta noted. No obvious ascites. IMPRESSION: Essentially normal age-appropriate complete abdominal ultrasound. <Electronically signed by Douglas Vences > 02/28/20 1012
== END ==
LOC: M RAD 09:26
PROVIDERS: ATTEND Internal Medicine Hematology & Oncology
DX: D47.1 Chronic myeloproliferative disease (principal); I70.0 Atherosclerosis of aorta

== ENCOUNTER → 2020-03-03 | Outpatient (CLI) | payer OTHER ==
[~2020-03-03] MED LIST changes: +ASPI1CHW3 PO; +HYDR500C PO; +TRAZ-257 PO
--- NOTE | 2020-03-03 10:18 | PFTRPT ---
Height: 64.00 Inches Weight: 111.00 Lbs BSA: 1.52 Diagnosis: EMPHYSEMA DATE: 03/03/2020 ORDERING PHYSICIAN: Dr. Joseph Matute Pre and post bronchodilator studies have excellent technical quality. Forced vital capacity is borderline. FEV1 out of proportion, obstructive index is therefore reduced. Expiratory limit of the flow-volume loop consistent with flow rate limitation. Favorable bronchodilator response is identified. Total lung capacity elevated. Residual volume suggests air trapping. Diffusing capacity is very significantly reduced and does not correct for alveolar volume. No hemoglobin available for correction. Airway resistance elevated with a concomitant decrease in airway conductance. IMPRESSION: At least moderate obstructive ventilatory impairment with underlying air trapping and suspected emphysema. Favorable bronchodilator response. Please correlate clinically. MTDD
== END ==
LOC: M CARPUL 09:43
PROVIDERS: ATTEND Internal Medicine Hematology & Oncology
DX: J43.9 Emphysema, unspecified (principal)

== ENCOUNTER → 2020-09-04 | Outpatient (REF) | payer OTHER ==
[~2020-09-04] MED LIST changes: +COVI100V IM; +MIRT-62 PO; +REGL5TAB2 PO; -REME15TA PO
[2020-09-04 18:33] LABS: ALBUMIN 3.3 GM/DL (3.2-5.2); ALT/SGPT 38 U/L (12-78); BILIRUBIN,TOTAL 0.5 MG/DL (0.2-1.0); BLOOD UREA NITROGEN 12 MG/DL (7-18); CALCIUM LEVEL 8.7 MG/DL (8.8-10.2); CARBON DIOXIDE LEVEL 29 MEQ/L (21-32); CHLORIDE LEVEL 104 MEQ/L (98-107); CHOLESTEROL LEVEL 122 MG/DL (<200); CHOLESTEROL RISK RATIO 2.033 (<5); CREATININE FOR GFR 0.69 MG/DL (0.55-1.30); FREE T4 1.19 NG/DL (0.76-1.46); GLOMERULAR FILTRATION RATE > 60.0 (>45); GLUCOSE, FASTING 89 MG/DL (70-100); HDL CHOLESTEROL 60 MG/DL (>40); LDL CHOLESTEROL 46 MG/DL (<100); NON-HDL-C 62 MG/DL; POTASSIUM SERUM 3.9 MEQ/L (3.5-5.1); SODIUM LEVEL 136 MEQ/L (136-145); THYROID STIMULATING HORMONE 0.875 uIU/ML (0.358-3.740); TOTAL 25(OH) VITAMIN D 24.4 NG/ML (30.0-100.0); TRIGLYCERIDES LEVEL 80 MG/DL (<150)
[2020-09-04 19:56] LABS: BASO % 0.7 % (0.0-1.0); EOS % 0.9 % (0.0-3.0); HEMATOCRIT 36.1 % (36.0-47.0); HEMOGLOBIN 12.2 g/dl (12.0-15.5); LYMPH # 1.8 10^3/uL (1.5-5.0); LYMPH % 40.4 % (24.0-44.0); MEAN CORPUSCULAR HEMOGLOBIN 41.5 pg (27.0-33.0); MEAN CORPUSCULAR HGB CONC 33.8 g/dl (32.0-36.5); MONO # 0.2 10^3/uL (0.0-0.8); MONO % 4.4 % (2.0-8.0); NEUTROPHILS # 2.4 10^3/uL (1.5-8.5); NEUTROPHILS % 53.4 % (36.0-66.0); PLATELET COUNT, AUTOMATED 201 10^3/uL (150-450); RED BLOOD COUNT 2.94 10^6/uL (4.00-5.40); WHITE BLOOD COUNT 4.5 10^3/uL (4.0-10.0)
[2020-09-04 20:00] LABS: MEAN CORPUSCULAR VOLUME 122.8 fl (80.0-96.0)
[2020-09-04 21:08] LABS: ANISOCYTOSIS 1+; BURR CELLS 1+
[2020-09-04 21:30] LABS: PLATELET ESTIMATE NORMAL (NORMAL)
== END ==
LOC: M LAB REF 16:38
PROVIDERS: ATTEND Nurse Practitioner Family
DX: I10 Essential (primary) hypertension (principal); F41.3 Other mixed anxiety disorders

== ENCOUNTER → 2020-09-05 | Outpatient (REF) | payer OTHER | LOC: M LAB REF 15:31 | PROVIDERS: ATTEND Internal Medicine Hematology & Oncology | DX: D47.1 Chronic myeloproliferative disease (principal) ==

== ENCOUNTER → 2020-12-02 | Outpatient (REF) | payer OTHER ==
[~2020-12-02] MED LIST changes: +GABA-283 PO; -GABA-845 PO; +NICO21DI37 TOP; +OMEP40CA4 PO; -OMEP40CA97 PO; +PROC10TA4 PO
[2020-12-02 18:24] LABS: BASO % 0.5 % (0.0-1.0); EOS # 0.1 10^3/uL (0.0-0.5); EOS % 1.1 % (0.0-3.0); HEMATOCRIT 38.4 % (36.0-47.0); HEMOGLOBIN 13.5 g/dl (12.0-15.5); LYMPH % 49.1 % (24.0-44.0); MONO # 0.4 10^3/uL (0.0-0.8); MONO % 6.9 % (2.0-8.0); NEUTROPHILS # 2.6 10^3/uL (1.5-8.5); NEUTROPHILS % 42.2 % (36.0-66.0); PLATELET COUNT, AUTOMATED 228 10^3/uL (150-450); WHITE BLOOD COUNT 6.1 10^3/uL (4.0-10.0)
[2020-12-02 18:25] LABS: MEAN CORPUSCULAR HGB CONC 35.2 g/dl (32.0-36.5)
[2020-12-02 18:33] LABS: ALBUMIN 3.6 GM/DL (3.2-5.2); ALT/SGPT 28 U/L (12-78); BILIRUBIN,TOTAL 0.6 MG/DL (0.2-1.0); BLOOD UREA NITROGEN 9 MG/DL (7-18); CALCIUM LEVEL 8.8 MG/DL (8.8-10.2); CARBON DIOXIDE LEVEL 28 MEQ/L (21-32); CHLORIDE LEVEL 100 MEQ/L (98-107); CHOLESTEROL LEVEL 144 MG/DL (<200); CHOLESTEROL RISK RATIO 1.756 (<5); CREATININE FOR GFR 0.75 MG/DL (0.55-1.30); GLOMERULAR FILTRATION RATE > 60.0 (>45); GLUCOSE, FASTING 89 MG/DL (70-100); HDL CHOLESTEROL 82 MG/DL (>40); LDL CHOLESTEROL 44 MG/DL (<100); NON-HDL-C 62 MG/DL; POTASSIUM SERUM 3.9 MEQ/L (3.5-5.1); SODIUM LEVEL 133 MEQ/L (136-145); TOTAL PROTEIN 6.4 GM/DL (6.4-8.2); TRIGLYCERIDES LEVEL 88 MG/DL (<150)
[2020-12-02 18:35] LABS: TOTAL 25(OH) VITAMIN D 23.5 NG/ML (30.0-100.0)
[2020-12-02 19:00] LABS: PLATELET ESTIMATE NORMAL (NORMAL)
[2020-12-02 19:01] LABS: OVALOCYTES 1+; POLYCHROMASIA 1+; TEAR DROP CELLS 1+
== END ==
LOC: M LAB REF 16:29
PROVIDERS: ATTEND Nurse Practitioner Family
DX: E78.5 Hyperlipidemia, unspecified (principal); F41.3 Other mixed anxiety disorders; I10 Essential (primary) hypertension; E55.9 Vitamin D deficiency, unspecified

== ENCOUNTER → 2021-01-12 | Outpatient (CLI) | payer OTHER ==
[~2021-01-12] MED LIST changes: +HYDR500C3 PO; +NICO1DIS11 TD
== END ==
LOC: M LABSMTC 10:21
PROVIDERS: ATTEND Anesthesiology
DX: Z01.812 Encounter for preprocedural laboratory examination (principal); Z20.822 Contact with and (suspected) exposure to COVID-19

== ENCOUNTER 2021-01-16 10:34 | Day surgery (SDC) | payer OTHER ==
[~2021-01-16] VITALS: Ht 162.6 cm; Wt 49.8 kg
[~2021-01-16 10:34] MED LIST changes: +LIDOCAINE 2% 100MG/5ML SDV (FOR ANES.) As Ordered ONE; +NS 1,000 ML IV ONE; +propofoL 200 MG/20 ML VIAL As Ordered ONE
--- NOTE | 2021-01-16 12:05 | ROOR ---
Patient Name: Diana Bonner Procedure Date: 01/16/2021 11:48 AM Date of : 1960 Age: 60 Room: [facility] Gender: Female Note Status: Finalized Procedure: Upper GI endoscopy Indications: Iron deficiency anemia Providers: Hernesto Ibrahim MD Referring MD: Shelly Granda NP Requesting Provider: Medicines: Monitored Anesthesia Care Complications: No immediate complications. Procedure: Pre-Anesthesia Assessment: - The heart rate, respiratory rate, oxygen saturations, blood pressure, adequacy of pulmonary ventilation, and response to care were monitored throughout the procedure. The Endoscope was introduced through the mouth, and advanced to the third part of duodenum. The upper GI endoscopy was accomplished without difficulty. The patient tolerated the procedure well. Findings: The examined esophagus was normal. Patchy mildly erythematous mucosa without bleeding was found in the gastric antrum. Biopsies were taken with a cold forceps for histology. Small Hiatal Hernia. The exam of the stomach was otherwise normal. The examined duodenum was normal. Biopsies for histology were taken with a cold forceps for evaluation of celiac disease. Impression: - Normal esophagus. - Mildly erythematous mucosa in the antrum. Biopsied. - Small Hiatal Hernia. - Otherwise normal stomach. - Normal examined duodenum. Biopsied. Recommendation: - Telephone endoscopist for pathology results in 2 weeks. - Observe patient's clinical course. Procedure Code(s): --- Professional --- 05066, Esophagogastroduodenoscopy, flexible, transoral; with biopsy, single or multiple Diagnosis Code(s): --- Professional --- D50.9, Iron deficiency anemia, unspecified K31.89, Other diseases of stomach and duodenum CPT copyright 2019 [employer]. All rights reserved. The codes documented in this report are preliminary and upon utility specialist review may be revised to meet current compliance requirements. Hernesto Ibrahim MD Hernesto Ibrahim MD 01/16/2021 12:05:00 PM Electronically signed by Hernesto Ibrahim MD Number of Addenda: 0 Note Initiated On: 01/16/2021 11:48 AM Estimated Blood Loss: Estimated blood loss: none.
--- NOTE | 2021-01-16 12:38 | ROOR ---
Patient Name: Diana Bonner Procedure Date: 01/16/2021 11:48 AM Date of : 1960 Age: 60 Room: [facility] Gender: Female Note Status: Finalized Procedure: Colonoscopy Indications: Hematochezia, Iron deficiency anemia Providers: Hernesto Ibrahim MD Referring MD: Shelly Granda NP Requesting Provider: Medicines: Monitored Anesthesia Care Complications: No immediate complications. Procedure: Pre-Anesthesia Assessment: - The heart rate, respiratory rate, oxygen saturations, blood pressure, adequacy of pulmonary ventilation, and response to care were monitored throughout the procedure. The Colonoscope was introduced through the anus and advanced to the cecum, identified by appendiceal orifice and ileocecal valve. The colonoscopy was performed without difficulty. The patient tolerated the procedure well. The quality of the bowel preparation was good. Findings: The perianal and digital rectal examinations were normal. Pertinent negatives include no palpable rectal lesions. Mild rectal prolapse was present. The sigmoid colon was moderately tortuous. Two sessile polyps were found in the sigmoid colon and splenic flexure. The polyps were small in size. These polyps were removed with a cold snare. Resection and retrieval were complete. Mild sigmoid diverticulosis and small internal hemorrhoids. The exam was otherwise without abnormality on direct and retroflexion views. Impression: - Mild rectal mucosal prolapse. - Two small polyps in the sigmoid colon and at the splenic flexure, removed with a cold snare. Resected and retrieved. - Mild sigmoid diverticulosis and small internal hemorrhoids. - The examination was otherwise normal on direct and retroflexion views. Recommendation: - Repeat colonoscopy in 5 years for surveillance. - Resume Eliquis (apixaban) at prior dose tomorrow. Procedure Code(s): --- Professional --- 91231, Colonoscopy, flexible; with removal of tumor(s), polyp(s), or other lesion(s) by snare technique Diagnosis Code(s): --- Professional --- K62.3, Rectal prolapse K63.5, Polyp of colon K92.1, Melena (includes Hematochezia) D50.9, Iron deficiency anemia, unspecified Q43.8, Other specified congenital malformations of intestine CPT copyright 2019 [employer]. All rights reserved. The codes documented in this report are preliminary and upon boiler fireman review may be revised to meet current compliance requirements. Hernesto Ibrahim MD Hernesto Ibrahim MD 01/16/2021 12:38:03 PM Electronically signed by Hernesto Ibrahim MD Number of Addenda: 0 Note Initiated On: 01/16/2021 11:48 AM Estimated Blood Loss: Estimated blood loss: none.
[2021-01-16 13:00] VITALS: BP 141/85
== END 2021-01-16 13:55 | disposition home or self-care (01) ==
LOC: M OPP 10:34
PROVIDERS: ATTEND Internal Medicine Gastroenterology
DX: K63.5 Polyp of colon (principal); K62.3 Rectal prolapse; Q43.8 Other specified congenital malformations of intestine; K64.8 Other hemorrhoids; K92.1 Melena; D50.9 Iron deficiency anemia, unspecified; K44.9 Diaphragmatic hernia without obstruction or gangrene; K31.89 Other diseases of stomach and duodenum; I25.2 Old myocardial infarction; J44.9 Chronic obstructive pulmonary disease, unspecified; Z79.82 Long term (current) use of aspirin; Z79.899 Other long term (current) drug therapy; F17.210 Nicotine dependence, cigarettes, uncomplicated

== ENCOUNTER 2021-05-04 20:06 | Emergency (ER) | payer OTHER ==
[~2021-05-04] VITALS: Ht 162.6 cm; Wt 48.2 kg
[~2021-05-04 20:06] MED LIST changes: -LIDOCAINE 2% 100MG/5ML SDV (FOR ANES.) As Ordered ONE; -NS 1,000 ML IV ONE; -propofoL 200 MG/20 ML VIAL As Ordered ONE
[2021-05-04 20:07] VITALS: BP 126/90
== END 2021-05-04 22:25 | disposition left against medical advice (07) ==
LOC: M ED 20:06
DX: Z53.21 Procedure and treatment not carried out due to patient leaving prior to being seen by health care provider (principal)

== ENCOUNTER 2021-05-11 16:43 | Inpatient (IN) | payer OTHER ==
[~2021-05-11] VITALS: Ht 162.6 cm; Wt 44.0 kg
[2021-05-11] MEDS ORDERED: PANTOPRAZOLE 40MG VIAL (C9113 PER 1) IV ONE (19:55)
[2021-05-11] MEDS ORDERED: NS 1,000 ML IV ONE (19:55)
[2021-05-11] MEDS ORDERED: ONDANSETRON 4MG/2ML VIAL IV ONE (19:55)
[2021-05-11 20:36] LABS: BASO % 0.1 % (0.0-1.0); EOS % 0.1 % (0.0-3.0); HEMATOCRIT 43.2 % (36.0-47.0); HEMOGLOBIN 15.5 g/dl (12.0-15.5); LYMPH # 1.9 10^3/uL (1.5-5.0); LYMPH % 27.9 % (24.0-44.0); MEAN CORPUSCULAR HGB CONC 35.9 g/dl (32.0-36.5); MEAN CORPUSCULAR VOLUME 108.8 fl (80.0-96.0); MONO # 0.6 10^3/uL (0.0-0.8); MONO % 9.2 % (2.0-8.0); NEUTROPHILS # 4.2 10^3/uL (1.5-8.5); NEUTROPHILS % 62.6 % (36.0-66.0); PLATELET COUNT, AUTOMATED 305 10^3/uL (150-450); RED BLOOD COUNT 3.97 10^6/uL (4.00-5.40); WHITE BLOOD COUNT 6.7 10^3/uL (4.0-10.0)
[2021-05-11 21:01] LABS: ALBUMIN 2.8 GM/DL (3.2-5.2); ALT/SGPT 274 U/L (12-78); BILIRUBIN,DIRECT 0.6 MG/DL (0.0-0.2); BILIRUBIN,TOTAL 1.2 MG/DL (0.2-1.0); BLOOD UREA NITROGEN 11 MG/DL (7-18); CALCIUM LEVEL 8.7 MG/DL (8.8-10.2); CARBON DIOXIDE LEVEL 28 MEQ/L (21-32); CHLORIDE LEVEL 88 MEQ/L (98-107); GLOMERULAR FILTRATION RATE > 60.0 (>45); GLUCOSE, FASTING 83 MG/DL (70-100); LIPASE 116 U/L (73-393); POTASSIUM SERUM 3.3 MEQ/L (3.5-5.1); SODIUM LEVEL 128 MEQ/L (136-145)
[2021-05-11] MEDS ORDERED: ISOVUE-370 76% 100ML VIAL As Ordered ONE (21:05)
--- NOTE | 2021-05-11 22:35 | REPVR ---
PROCEDURE INFORMATION: Exam: CT Abdomen And Pelvis With Contrast Exam date and time: 05/11/2021 9:25 PM Age: 60 years old Clinical indication: Vomiting TECHNIQUE: Imaging protocol: Computed tomography of the abdomen and pelvis with contrast. Radiation optimization: All CT scans at this facility use at least one of these dose optimization techniques: automated exposure control; mA and/or kV adjustment per patient size (includes targeted exams where dose is matched to clinical indication); or iterative reconstruction. Contrast material: ISOVUE 370; Contrast volume: 100 ml; Contrast route: INTRAVENOUS (IV); COMPARISON: CT ABD PELVIS W/O CONTRAST 12/12/2018 10:01 AM FINDINGS: Lungs: Emphysematous changes are present at the lung bases. Liver: Liver appears normal with no focal abnormality. Gallbladder and bile ducts: Gallbladder is present and shows no evidence of gallstone. Pancreas: Pancreas appears normal. No focal mass or peripancreatic inflammation. Spleen: Spleen appears homogeneous without focal mass. Adrenal glands: Adrenal glands are normal in appearance. Kidneys and ureters: Probable scarring, lateral midpole right kidney. No obstructive uropathy. 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 Stomach and bowel: No evidence of small bowel obstruction. Diverticular changes are present within the colon without inflammation. Appendix: Appendix is not seen. No RLQ inflammation to suggest appendicitis. Intraperitoneal space: No pneumoperitoneum. Vasculature: Atherosclerotic change present in the aorta, without aneurysm. SMA and celiac origin stents with normal enhancement. Lymph nodes: No enlarged lymph nodes. Urinary bladder: Urinary bladder appears normal. Reproductive: Uterus is surgically absent. Bones/joints: Bony structures show no acute fracture or destructive process. Soft tissues: No concerning focal abnormality of the extra-abdominal and pelvic soft tissues. IMPRESSION: 1. No acute surgical or inflammatory intra-abdominal or pelvic process. 2. Colonic diverticulosis without evidence of active inflammation. Electronically signed by: Zack Umaña On 05/11/2021 22:34:49 PM
[2021-05-11 23:11] LABS: RSV AMPLIFICATION NEGATIVE (NEGATIVE)
[2021-05-12] MEDS ORDERED: NS 1,000 ML IV SCH (01:15)
[2021-05-12 02:00] VITALS: BP 138/65
[2021-05-12] MEDS ORDERED: PANT-23 PO (02:31)
[2021-05-12] MEDS ORDERED: NICO21PAT TOP (02:31)
[2021-05-12] MEDS ORDERED: ASPI81TA26 PO (02:31)
[2021-05-12] MEDS ORDERED: ERGO500029 PO (02:31)
[2021-05-12] MEDS ORDERED: ELIQ5TAB PO (02:31)
[2021-05-12] MEDS ORDERED: METO25TA4 PO (02:31)
[2021-05-12] MEDS ORDERED: SERT25TA21 PO (02:31)
[2021-05-12] MEDS ORDERED: XALA0.007 OU (02:31)
[2021-05-12] MEDS ORDERED: HOME MED LIST COMPLETE! XX SCH (02:35)
[2021-05-12] MEDS: KCL 10MEQ/100ML SWI (KRUN) 10 MEQ in IV 1 EA IV SCH ×2 (03:04→05:19)
--- NOTE | 2021-05-12 03:40 | HPEPDOC ---
[facility] Medical History & Physical Date of Admission May 12, 2021 Date of Service: May 12, 2021 Attending Physician: Sandeep Osborne History and Physical CHIEF COMPLAINT: Nausea, vomiting HISTORY OF PRESENT ILLNESS: Patient is a 60-year-old, female, who presented to the ED on 05/11/2021 with a 3 month history of nausea, vomiting, and a 14 pound weight loss. She describes the vomit as being clear phlegm, without blood, bile, or coffee-ground emesis. She has been seen by GI, and has had multiple upper scopes, most recent being January 16 of this year. Endoscopy showed no evidence of celiac disease or H. pylori. The colonoscopy showed a tubular adenoma, fragment of a hyperplastic polyp, and a hyperplastic polyp in the sigmoid colon. Of note, patient did test positive for Covid in the ED. She reports that she has received 2 doses of the vaccination, but has not received a booster vaccine. PAST MEDICAL HISTORY: Peripheral artery disease, left leg claudication, celiac and SMA stenosis, hypertension, COPD, NSTEMI Takotsubo cardiomyopathy Left ventricular thrombus DVT status PAST SURGICAL HISTORY: 1. Multiple cardiac stents and angioplasty. 2. Left nytab-tcp-jddy amputation. 3. Right leg fasciotomy. SOCIAL HISTORY: Marital status: . Resides in: Employment: Unemployed Tobacco use: Pack a day from age 16 until 2 weeks ago ETOH: 1 beer (12 ounce) a week Illicit drug use: Denies Marijuana use: Daily IV drug use: Denies FAMILY HISTORY: History of abdominal aneurysms in brother and mother children: ALLERGIES: Please see below. REVIEW OF SYSTEMS: CONSTITUTIONAL: Denies fever, reports chills. HEENT: Denies blurry vision. CARDIOVASCULAR: Denies shortness of breath. RESPIRATORY: Denies shortness of breath GASTROINTESTINAL: Reports nausea, vomiting, some diarrhea; denies blood in stool. GENITOURINARY: Denies dysuria, hematuria. MUSCULOSKELETAL: Denies new onset weakness or pain. NEUROLOGICAL: Denies headache. PSYCHIATRIC: Denies worsening anxiety, depression. ENDOCRINE: Denies increased or decreased thirst. HOME MEDICATIONS: Please see below. PHYSICAL EXAMINATION: VITAL SIGNS: Temperature 97.1, pulse 84, respiratory rate 20, blood pressure 138/65, pulse oximetry 95% on room air. GENERAL APPEARANCE: 60-year-old, male, lying in bed, no acute distress. CARDIOVASCULAR: Regular rate and rhythm, no murmurs, rubs, or gallops. LUNGS: CTA bilaterally. ABDOMEN: Normoactive bowel sounds, nontender palpation. EXTREMITIES: No right lower extremity edema appreciated, status post below the knee amputation on the left leg 2019. NEUROLOGICAL: No gross deficits appreciated. LABORATORY DATA: See below. IMAGING: Abdomen pelvis CT 1. No acute surgical or inflammatory intra-abdominal or pelvic process. 2. Colonic diverticulosis without evidence of active inflammation. MICROBIOLOGY: Please see below. ASSESSMENT: Patient is a 60-year-old female who presented to the ED 05/11/2021 with a 3-month history of nausea, vomiting and weight loss. PLAN: #. Hyponatremia -Likely dilutional -Begin normal saline at 75 mL/h for the next hour #. Nausea vomiting likely due to cannabis hyperemesis -Discontinue marijuana use -Continue IV fluids and consider Zofran -Cont pantoprazole #. Increased bilirubin and liver function testing -Hep C antibody test in HBs Ag ordered #. Weight loss and hypoalbuminemia -Likely secondary to poor p.o. intake -CXR ordered to rule out malignancy -HIV-1 and to screen ordered #. COVID-19 -Patient reports having received 2 doses of vaccination but has not had a booste r -Has been consented for monoclonal antibodies -Monitor patient for signs of hypoxia #. Erythrocytosis and thrombocytosis -Negative for JAK2 and BCR/ABL fish mutations #. Hyperkalemia -We will give 10 M EQ K runs #. Hypertension -Continue home Metoprolol tartrate #. Anxiety/depression -Continue sertraline #. DVT prophylaxis -Was started on Eliquis back in 2019 after experiencing multiple cardiac and venous pathologies and undergoing surgical corrections for them including a left veajy-bar-wzpe amputation related to clots -Continue Eliquis CODE STATUS: DNR/DNI Disposition: Patient is a 60-year-old woman hyponatremia. Admit to [facility] for observation. Vital Signs Vital Signs Date Time Temp Pulse Resp B/P (MAP) Pulse Ox O2 Delivery O2 Flow Rate FiO2 05/12/21 02:00 97.1 84 20 138/65 (89) 95 Room Air Laboratory Data Labs 24H Laboratory Tests 2 05/11/21 20:15: Immature Granulocyte % (Auto) 0.1, Neutrophils (%) (Auto) 62.6, Lymphocytes (%) (Auto) 27.9, Monocytes (%) (Auto) 9.2H, Eosinophils (%) (Auto) 0.1, Basophils (%) (Auto) 0.1, Neutrophils # (Auto) 4.2, Lymphocytes # (Auto) 1.9, Monocytes # (Auto) 0.6, Eosinophils # (Auto) 0.0, Basophils # (Auto) 0.0, Nucleated Red Blood Cells % (auto) 0.0, Anion Gap 12, Glomerular Filtration Rate > 60.0, Calcium Level 8.7L, Total Bilirubin 1.2H, Direct Bilirubin 0.6H, Aspartate Amino Transf (AST/SGOT) 81H, Alanine Aminotransferase (ALT/SGPT) 274H, Alkaline Phosphatase 119H, Total Protein 6.0L, Albumin 2.8L, Albumin/Globulin Ratio 0.9L, Lipase 116 05/11/21 22:24: Coronavirus (COVID-19)(PCR) POSITIVEA, Influenza Type A (RT-PCR) NEGATIVE, Influenza Type B (RT-PCR) NEGATIVE, Respiratory Syncytial Virus (PCR) NEGATIVE 05/12/21 01:39: CBC/BMP Laboratory Tests 05/11/21 20:15 Home Medications Scheduled Apixaban (Eliquis) 5 Mg Tablet, 5 MG PO BID Aspirin (Aspirin EC) 81 Mg Tablet.dr, 81 MG PO DAILY Atorvastatin Calcium (Atorvastatin Calcium) 80 Mg Tablet, 80 MG PO DAILY Ergocalciferol (Vitamin D2) (Vitamin D2) 50,000 Units Cap, 50,000 UNITS PO QWEEK TUESDAY Gabapentin (Gabapentin) 400 Mg Capsule, 400 MG PO BID Hydrochlorothiazide (Hydrochlorothiazide) 12.5 Mg Capsule, 12.5 MG PO DAILY Hydroxyurea (Hydroxyurea) 500 Mg Capsule, 500 MG PO DAILY Latanoprost (Xalatan) 0.005% 2.5ML Drops, 1 DROP OU QHS Metoprolol Tartrate (Metoprolol Tartrate) 25 Mg Tablet, 25 MG PO BID Nicotine (Nicotine Patch) 21 Mg Patch.td24, 1 PATCH TOP DAILY Pantoprazole Sodium (Pantoprazole Sodium) 40 Mg Tablet.dr, 40 MG PO DAILY Prochlorperazine Maleate (Prochlorperazine Maleate) 10 Mg Tablet, 10 MG PO Q6H Sertraline HCl (Sertraline HCl) 25 Mg Tablet, 25 MG PO DAILY Trazodone HCl (Trazodone HCl) 100 Mg Tablet, 100 MG PO QHS Allergies Coded Allergies: No Known Allergies (Unverified , 01/05/21) GME ATTESTATION GME ATTESTATION My faculty preceptor for this patient encounter was physically present during the encounter and was fully available. All aspects of the patient interview, examination, medical decision making process, and medical care plan development were reviewed and approved by the faculty preceptor. The faculty preceptor is aware and concurs with the plan as stated in the body of this note and will attest to such by his/her cosignature. ATTENDING NOTE Patient was seen in the emergency department an independent examination was performed. She presented to the emergency department for persistent vomiting for many months. When asked as to what brought her to the emergency department today, patient states that the vomiting was relentless. She does not have any abdominal pain or diarrhea. She has no distention of abdomen either. She has never witnessed any blood in the vomitus. The vomitus is mostly phlegm and clear liquid and not bilious or of coffee-ground character. She has been losing weight and states that she has lost some 14 pounds of weight. She has had EGD in January 2021 that revealed no abnormalities. She uses marijuana on a daily basis. Past medical and surgical history: Marijuana abuse, erythrocytosis and thrombocytosis, severe atherosclerotic coronary artery disease. Social history: She abuses marijuana on a daily basis. Family history: No history of blood dyscrasias in the family. Review of systems: She does not have fever, cough, sputum production, hemoptysis, chest pain, shortness of breath,burning in the urine, frequency of micturition, blood in the urine, headache, blurry vision, focal weakness of extremities, sensory symptoms on the face or extremities, joint pains, joint swellings, lymph node enlargement, skin rash, tongue ulcers, sore throat or symptoms of cold. Vitals: Reviewed Examination: General: Appears emaciated. Decubitus: Supine. Oral examination: Dry oral mucosa. Head, neck and ENT: No cervical lymphadenopathy. Eyes: Mild pallor. No icterus. Skin: No generalized skin rash. Cardiovascular: Regular rhythm. Tachycardia absent. Loud S1. No murmur. Respiratory: Air entry equal on both sides. No crackles, rhonchi or wheeze. No pleural friction rub. Abdominal: No abdominal distention. No tenderness in any quadrant. Bowel sous not exaggerated. Genitourinary: No renal angle tenderness. No suprapubic tenderness. Neurologic: Conscious, alert and oriented with respect to time place and person. Joints: No tenderness or swelling of joints. Extremities: No extremity swelling. Psychiatric: Flat affect. Labs: Reviewed Imaging reports: Reviewed Assessment and plan: Cannabis hyperemesis syndrome Persistent vomiting with concurrent marijuana abuse. CT abdomen: No demonstratable pathology to explain vomiting. Disease tempo most in favor of cannabis hyperemesis. Symptomatic treatment is aimed at at present. Continuous IV fluid Hyponatremia Differential diagnosis: Low-osmolality diet/poor oral intake from vomiting, hypovolemic etiology, alternative. Urine specific gravity to be tested. 1 L normal saline bolus was administered in the emergency department. To be started on modest continuous normal saline infusion. COVID-19 Onset not clear as patient has no symptom attributable to COVID-19. Contact and droplet isolation to continue. Outpatient SARS COV-2 specific immunoglobulin infusion (monoclonal antibody infusion) is recommended. New-onset hyperbilirubinemia and transaminasemia Baseline liver function in February 2021 within normal limits. To be tested for HBsAg and HCV antibody. Liver panel to be repeated in a.m. Significant involuntary weight loss Possibly related to chronic cannabis hyperemesis related to marijuana use. Last colonoscopy: December 2019 with benign polyps. Not up-to-date with mammograms. In view of patient's past history of high-magnitude smoking, chest x-rays to be obtained at present. To be tested for HIV 1 and 2 with patient's consent (patient's consent obtained). Patient is to follow-up with primary care physician for work-up and screening ma mmogram. Coronary artery disease, severe Eliquis to continue along with aspirin. Past history of erythrocytosis and thrombocytosis Hydroxyurea to be resumed if liver injury stable. Hypokalemia Potassium chloride to be replaced parenterally. Vasyl Cronin DO May 12, 2021 03:40 Sandeep Osborne May 12, 2021 04:04
[2021-05-12 04:00] VITALS: BP 115/74
--- NOTE | 2021-05-12 04:07 | REPVR ---
PROCEDURE INFORMATION: Exam: XR Chest Exam date and time: 05/12/21 (1:45am) Age: 60 years old Clinical indication: Possible malignancy TECHNIQUE: Imaging protocol: Portable CXR Views: 1 view COMPARISON: CT CHEST of 02/06/20 FINDINGS: Lungs: No consolidation. Hyperinflated lungs again seen. Pleural spaces: Unremarkable. No pleural effusions. No pneumothorax. Heart/Mediastinum: Unremarkable. No cardiomegaly. Bones/joints: Unremarkable. IMPRESSION: No acute findings. COPD-type changes. Electronically signed by: Nancy Garduno On 05/12/2021 04:07:18 AM
[2021-05-12 06:51] LABS: ALBUMIN 2.4 GM/DL (3.2-5.2); ALT/SGPT 207 U/L (12-78); BILIRUBIN,TOTAL 0.8 MG/DL (0.2-1.0); BLOOD UREA NITROGEN 7 MG/DL (7-18); CALCIUM LEVEL 8.1 MG/DL (8.8-10.2); CARBON DIOXIDE LEVEL 24 MEQ/L (21-32); CHLORIDE LEVEL 93 MEQ/L (98-107); CREATININE FOR GFR 0.44 MG/DL (0.55-1.30); GLOMERULAR FILTRATION RATE > 60.0 (>45); GLUCOSE, FASTING 52 MG/DL (70-100); POTASSIUM SERUM 3.1 MEQ/L (3.5-5.1); SODIUM LEVEL 128 MEQ/L (136-145); TOTAL PROTEIN 5.4 GM/DL (6.4-8.2)
[2021-05-12 08:53] LABS: HEPATITIS B SURFACE ANTIGEN NEGATIVE (NEGATIVE); HEPATITIS C VIRUS ABY INDEX 0.1 INDEX (<0.8); HIV 1&2 SCREEN CENTAUR NEGATIVE (NEGATIVE)
[2021-05-12] MEDS: SERTRALINE HCL 25 MG TABLET PO SCH (09:32)
[2021-05-12] MEDS: PANTOPRAZOLE 40MG TAB (PROTONIX) PO SCH (09:32)
[2021-05-12] MEDS: APIXABAN 5 MG TAB (ELIQUIS) PO SCH ×2 (09:32→20:23)
[2021-05-12] MEDS: NICOTINE 21MG/24HR 1 EA TRANSDERMAL TD PRN (09:32)
[2021-05-12] MEDS: METOPROLOL TART 25 MG TABLET PO SCH ×2 (09:32→20:23)
[2021-05-12] MEDS: ASPIRIN 81MG ENTERIC TABLET PO SCH (09:32)
--- NOTE | 2021-05-12 10:31 | REP ---
INDICATION: Elevated liver labs COMPARISON: 02/28/2020 TECHNIQUE: Real time byrd scale ultrasound examination using curved array transducer. FINDINGS: Liver is normal in contour, size, and echogenicity without focal hepatic lesions identified. Pancreas is incompletely evaluated due to interposed bowel gas. The gallbladder demonstrates small amount of layering sludge without wall thickening or pericholecystic fluid. No biliary ductal dilatation is appreciated and the common bile duct measures 7.9 mm diameter. Right kidney is normal in reniform shape without hydronephrosis and measures 9.5 x 4.5 x 3.7 cm. No ascites in the visualized right upper quadrant. IMPRESSION: 1. Normal appearance of the liver. 2. Small amount of gallbladder sludge. <Electronically signed by Douglas Vences > 05/12/21 1026
--- NOTE | 2021-05-12 10:49 | IPNPDOC ---
Text Note Date of Service The patient was seen on 05/12/21. NOTE Subjective: 60-year-old female presented emergency room department with complaints of nausea and vomiting and a 14 pound weight loss. She reports this has been going on for several months now but has not been evaluated. CT scan of the abdomen pelvis was done in emergency room department which showed no acute pathology. She reports smoking marijuana daily, and there is suspicion for cannabinoid hyperemesis. Patient was seen and examined at bedside this morning. She was n.p.o. awaiting for liver ultrasound. She denied feeling nauseated or having any episodes of vomiting since hospitalization. She was asking for diet. She denied abdominal pain, shortness of breath, chest pain, problems with urination and bowel movements. Review of systems: 10 point review of system was negative except for what is noted in the HPI Physical exam: General: Lying in bed, no acute distress Head/Neck/Throat: Trachea midline, mucous membranes moist Eyes: Sclera anicteric, no erythema or discharge appreciated bilaterally Thorax: Normal respiratory effort on room air, lungs clear to auscultation bilaterally, no wheezes/rales/rhonchi Cardiovascular: Normal rate, regular rhythm, normal S1, S2; no S3, S4, rubs/gallops/murmurs Abdomen: Bowel sounds present, soft, nontender, nondistended, no rebound tenderness Genitourinary: No CVA tenderness, no Cox in place Musculoskeletal: Moving all extremities, no edema Skin: Warm, dry Neurologic: AAOx3, speech fluent and goal-directed, no focal deficits, grossly intact Labs: See below Imaging: Please see imaging section Assessment/plan: 60-year-old female present emergency room department with complaints of nausea and vomiting as well 14 pound weight loss which has been going on for several months now. #Cannabinoid hyperemesis -Reports smoking marijuana on a daily basis. She was educated about cannabis use and its relation to hyperemesis. Encouraged to stop smoking. #Hyponatremia -Follow-up on serum osmolarity. Suspect this is hypovolemic hyponatremia. Continue with IV fluids. Do not want to correct sodium greater than 8 mEq in 24 hours. #Transaminitis -Hepatitis panel is negative. Liver profile is negative. This can be secondary to her Covid infection. #Weight loss -She has had poor p.o. intake over the last several months attribute it to feeling nauseated and vomiting. She will need to follow-up with her primary care physician for age appropriate screening including mammogram and colonoscopy. #COVID-19 -She has received 2 doses of vaccination. Respiratory status is stable, not on room air. She has been consented for monoclonal antibodies which she she will receive following discharge. #Electrolyte abnormality -Replete potassium #Hypertension -Continue metoprolol #Anxiety/depression -Continue sertraline #hx of DVT -She was started on Eliquis in 2018 for dvt -Continue Eliquis VS,Fishbone, I+O VS, Fishbone, I+O Laboratory Tests 05/11/21 20:15 05/12/21 05:24 Vital Signs Date Time Temp Pulse Resp B/P (MAP) Pulse Ox O2 Delivery O2 Flow Rate FiO2 05/12/21 09:32 85 135/74 05/12/21 04:00 97.7 19 94 Room Air I&O- Last 24 Hours up to 6 AM 05/12/21 06:00 Intake Total 1400 ml Output Total 125 ml Balance 1275 ml JAMAL SNYDER M.D. May 12, 2021 10:49
[2021-05-12] MEDS ORDERED: POTASSIUM CHLORIDE 10MEQ SR TABLET PO ONE (10:55)
[2021-05-12] MEDS: NS 1,000 ML IV SCH ×3 (11:54→23:56)
[2021-05-12 13:57] VITALS: BP 108/67
[2021-05-12 18:11] LABS: BLOOD UREA NITROGEN 6 MG/DL (7-18); CALCIUM LEVEL 7.9 MG/DL (8.8-10.2); CARBON DIOXIDE LEVEL 25 MEQ/L (21-32); CHLORIDE LEVEL 99 MEQ/L (98-107); CREATININE FOR GFR 0.48 MG/DL (0.55-1.30); GLOMERULAR FILTRATION RATE > 60.0 (>45); GLUCOSE, FASTING 74 MG/DL (70-100); POTASSIUM SERUM 4.3 MEQ/L (3.5-5.1); SODIUM LEVEL 131 MEQ/L (136-145)
--- NOTE | 2021-05-12 18:34 | ECGEPIP ---
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 : 1960 Requested By: Vasyl Zuniga Order Number: [id number] Reading MD: Roman Tate Measurements Intervals [place] Rate: 86 P: 75 GA: 132 QRS: -51 QRSD: 74 T: 72 QT: 408 QTc: 488 Interpretive Statements Sinus rhythm with premature atrial complexes Left axis deviation Low voltage QRS in the limb leads Anterior infarct , age undetermined Consider prior inferior wall myocardial infarction Compared to prior tracing of January 03, 2019, the very significant T wave inversions in the anterior and inferior leads have resolved although there are still some repolarization abnormalities Electronically Signed on 05-12-2021 18:33:50 EST by Roman Tate
[2021-05-12 19:29] VITALS: BP 104/65
[2021-05-12] MEDS ORDERED: traZODone 50 MG TAB PO ONE (20:00)
[2021-05-12] MEDS ORDERED: RAMELTEON 8 MG TAB (ROZEREM) PO PRN (20:00)
[2021-05-12] MEDS ORDERED: traZODone 100 MG TAB PO SCH (21:00)
[2021-05-12] MEDS ORDERED: LATANOPROST 0.005% OPHTH SOLN 2.5 ML OU SCH (21:00)
[2021-05-12 23:58] LABS: BLOOD UREA NITROGEN 5 MG/DL (7-18); CALCIUM LEVEL 7.6 MG/DL (8.8-10.2); CARBON DIOXIDE LEVEL 26 MEQ/L (21-32); CHLORIDE LEVEL 106 MEQ/L (98-107); CREATININE FOR GFR 0.49 MG/DL (0.55-1.30); GLOMERULAR FILTRATION RATE > 60.0 (>45); GLUCOSE, FASTING 84 MG/DL (70-100); POTASSIUM SERUM 4.2 MEQ/L (3.5-5.1); SODIUM LEVEL 136 MEQ/L (136-145)
[2021-05-13] VITALS (7 sets, daily range): BP systolic 104–121; BP diastolic 61–73
[2021-05-13 06:53] LABS: BASO % 0.4 % (0.0-1.0); EOS % 0.2 % (0.0-3.0); HEMATOCRIT 38.1 % (36.0-47.0); LYMPH # 1.6 10^3/uL (1.5-5.0); LYMPH % 30.5 % (24.0-44.0); MEAN CORPUSCULAR HEMOGLOBIN 40.5 pg (27.0-33.0); MEAN CORPUSCULAR HGB CONC 35.4 g/dl (32.0-36.5); MONO # 0.5 10^3/uL (0.0-0.8); MONO % 8.9 % (2.0-8.0); NEUTROPHILS # 3.2 10^3/uL (1.5-8.5); NEUTROPHILS % 59.6 % (36.0-66.0); PLATELET COUNT, AUTOMATED 291 10^3/uL (150-450); RED BLOOD COUNT 3.33 10^6/uL (4.00-5.40); WHITE BLOOD COUNT 5.4 10^3/uL (4.0-10.0)
[2021-05-13 06:58] LABS: HEMOGLOBIN 13.5 g/dl (12.0-15.5); MEAN CORPUSCULAR VOLUME 114.4 fl (80.0-96.0)
[2021-05-13] MEDS ORDERED: diphenhydrAMINE 50MG/ML VIAL (J1200) IV PRN ×2 (07:01→09:05)
[2021-05-13] MEDS ORDERED: ALBUTEROL SULFATE 2.5 MG/0.5 ML INH NEB SOLN INH PRN ×2 (07:01→09:05)
[2021-05-13] MEDS ORDERED: methylPREDNISolone 125MG 2ML VIAL IV PRN ×2 (07:01→09:05)
[2021-05-13] MEDS ORDERED: NS 1,000 ML IV SCH ×2 (07:01→09:05)
[2021-05-13] MEDS ORDERED: ALBUTEROL 90 MCG/ACT 8GM HFA INHALER INH PRN ×2 (07:01→09:05)
[2021-05-13] MEDS ORDERED: EPINEPHrine INJ 1 MG/ML 1ML AMP IM PRN ×2 (07:01→09:05)
[2021-05-13 07:17] LABS: ALBUMIN 2.3 GM/DL (3.2-5.2); ALT/SGPT 159 U/L (12-78); BILIRUBIN,TOTAL 0.7 MG/DL (0.2-1.0); BLOOD UREA NITROGEN 3 MG/DL (7-18); CALCIUM LEVEL 7.8 MG/DL (8.8-10.2); CARBON DIOXIDE LEVEL 26 MEQ/L (21-32); CHLORIDE LEVEL 103 MEQ/L (98-107); CREATININE FOR GFR 0.54 MG/DL (0.55-1.30); GLOMERULAR FILTRATION RATE > 60.0 (>45); GLUCOSE, FASTING 105 MG/DL (70-100); MAGNESIUM LEVEL 1.6 MG/DL (1.8-2.4); PHOSPHORUS LEVEL 1.6 MG/DL (2.5-4.9); POTASSIUM SERUM 3.8 MEQ/L (3.5-5.1); SODIUM LEVEL 135 MEQ/L (136-145); TOTAL PROTEIN 5.5 GM/DL (6.4-8.2)
[2021-05-13 07:58] LABS: PLATELET ESTIMATE NORMAL (NORMAL)
[2021-05-13] MEDS: SERTRALINE HCL 25 MG TABLET PO SCH (08:59)
[2021-05-13] MEDS: PANTOPRAZOLE 40MG TAB (PROTONIX) PO SCH (08:59)
[2021-05-13] MEDS: ASPIRIN 81MG ENTERIC TABLET PO SCH (08:59)
[2021-05-13] MEDS: METOPROLOL TART 25 MG TABLET PO SCH (08:59)
[2021-05-13] MEDS: APIXABAN 5 MG TAB (ELIQUIS) PO SCH (08:59)
[2021-05-13] MEDS: NICOTINE 21MG/24HR 1 EA TRANSDERMAL TD PRN (09:00)
[2021-05-13] MEDS ORDERED: CASIRIVIMAB/IMDEVIMAB 1,200 MG in NS 250 ML IV ONE (09:05)
[2021-05-13] MEDS: MAG SULF 1GM/100ML (MAG RUN) 1 GM in IV 1 EA IV SCH ×2 (09:45→11:06)
[2021-05-13] MEDS ORDERED: SODIUM PHOSPHATE INJ 30 MMOL in D5W 500 ML IV ONE (11:00)
[2021-05-13] MEDS ORDERED: BAMLANIVIMAB 700 MG, ETESEVIMAB 1,400 MG in NS 250 ML IV ONE ×2 (12:00→15:00)
--- NOTE | 2021-05-13 12:37 | DS.PDOC ---
Discharge Summary General Date of Admission May 12, 2021 at 00:46 Date of Discharge 05/13/21 Discharge Summary DISCHARGE DIAGNOSES: Cannabinoid hyperemesis COVID-19 Electrolyte abnormality COMPLICATIONS/CHIEF COMPLAINT: Hyponatremia. HOSPITAL COURSE: Ms. Bonner, is a 60-year-old female who presented emergency room department with complaints of nausea vomiting and weight loss over the last [address] scan of the abdomen and pelvis was done that showed no acute pathology to explain her symptoms. There was colonic diverticulosis without evidence of active inflammation. She had transaminitis but had no abdominal complaints. Liver ultrasound revealed no acute pathology. Hepatitis panel was negative. She admitted to using marijuana on a daily basis. While hospitalization she had no episodes of nausea and vomiting. She was tolerating a diet. She was educated about cannabinoid hyperemesis and asked to stop using marijuana. She reported having an upper and lower endoscopy done in the last 6 to 9 months which revealed no acute pathology. She was asked to continue following up with her primary beef specialist. It was also noted that she was hyponatremic. This was likely due to her hypovolemic state. She was treated with IV fluids and her sodium improved. She was asked to have repeat blood work done to ensure that her sodium as well as other electrolytes are repleted (magnesium and phosphorus) are stable She tested positive for COVID-19. She did not require any oxygen supplementation. Her respiratory status remained stable. She consented for monoclonal antibodies and receive them prior to discharge. She was educated about her weight loss likely being due to her poor p.o. intake. However, she was encouraged to follow-up with her primary care physician to ensure that she was up-to-date with all her age-appropriate screening. At the time of discharge, patient was tolerating a diet and had no complaints. Of note, she follows hematology group for polycythemia and thrombocytosis. She was encouraged to maintain these follow-up with her primary desk reporter. She was asked to also discuss the medication hydroxyurea possibly contributing to her symptoms. DISCHARGE MEDICATIONS: Please see below. ALLERGIES: Please see below. PHYSICAL EXAMINATION ON DISCHARGE: VITAL SIGNS: Please see below General: Lying in bed, no acute distress Head/Neck/Throat: Trachea midline, mucous membranes moist Eyes: Sclera anicteric, PERRLA Thorax: Normal respiratory effort on room air, lungs clear to auscultation bilaterally, no wheezes/rales/rhonchi Cardiovascular: Normal rate, regular rhythm, normal S1, S2; no S3, S4, rubs/gallops/murmurs Abdomen: Bowel sounds present, soft/nontender/nondistended Genitourinary: No CVA tenderness, no Cox in place Musculoskeletal: Moving all extremities, no edema Skin: Warm, dry Neurologic: AAOx3, speech fluent and goal-directed, no focal deficits, grossly intact LABORATORY DATA: Please see below. IMAGING: Please refer to imaging section PROGNOSIS: Good ACTIVITY: As tolerated DIET: Regular DISCHARGE INSTRUCTIONS: 1. As mentioned above. DISCHARGE CONDITION: Stable. TIME SPENT ON DISCHARGE: 30 minutes. Vital Signs/I&Os Vital Signs Date Time Temp Pulse Resp B/P (MAP) Pulse Ox O2 Delivery O2 Flow Rate FiO2 05/13/21 08:59 80 121/65 05/13/21 04:00 97.5 18 97 Room Air I&O- Last 24 Hours up to 6 AM 05/13/21 06:00 Intake Total 2591 ml Output Total 820 ml Balance 1771 ml Laboratory Data Labs 24H Laboratory Tests 2 05/12/21 12:45: Urine Random Sodium 111 05/12/21 17:27: Anion Gap 7L, Glomerular Filtration Rate > 60.0, Calcium Level 7.9L 05/12/21 19:54: Bedside Glucose (Misc Panel) 152H 05/12/21 23:10: Anion Gap 4L, Glomerular Filtration Rate > 60.0, Calcium Level 7.6L 05/13/21 05:56: Bedside Glucose (Misc Panel) 71L 05/13/21 06:00: Immature Granulocyte % (Auto) 0.4, Neutrophils (%) (Auto) 59.6, Lymphocytes (%) (Auto) 30.5, Monocytes (%) (Auto) 8.9H, Eosinophils (%) (Auto) 0.2, Basophils (%) (Auto) 0.4, Neutrophils # (Auto) 3.2, Lymphocytes # (Auto) 1.6, Monocytes # (Auto) 0.5, Eosinophils # (Auto) 0.0, Basophils # (Auto) 0.0, Nucleated Red Blood Cells % (auto) 0.0, Platelet Estimate NORMAL, Macrocytosis 1+, Anion Gap 6L, Glomerular Filtration Rate > 60.0, Calcium Level 7.8L, Phosphorus Level 1.6L, Magnesium Level 1.6L, Total Bilirubin 0.7, Aspartate Amino Transf (AST/SGOT) 37, Alanine Aminotransferase (ALT/SGPT) 159H, Alkaline Phosphatase 92, Total Protein 5.5L, Albumin 2.3L, Albumin/Globulin Ratio 0.7L 05/13/21 06:45: Osmolality 277L 05/13/21 11:29: Bedside Glucose (Misc Panel) 118H CBC/BMP Laboratory Tests 05/12/21 17:27 05/12/21 23:10 05/13/21 06:00 FSBS Laboratory Tests Test 05/12/21 19:54 05/13/21 05:56 05/13/21 11:29 Range/Units Bedside Glucose (Misc Panel) 152 71 118 80-115 MG/DL Discharge Medications Scheduled Apixaban (Eliquis) 5 Mg Tablet, 5 MG PO BID, (Reported) Aspirin (Aspirin EC) 81 Mg Tablet.dr, 81 MG PO DAILY, (Reported) Atorvastatin Calcium (Atorvastatin Calcium) 80 Mg Tablet, 80 MG PO DAILY, (Reported) Ergocalciferol (Vitamin D2) (Vitamin D2) 50,000 Units Cap, 50,000 UNITS PO QW [place], (Reported) TUESDAY Gabapentin (Gabapentin) 400 Mg Capsule, 400 MG PO BID, (Reported) Hydrochlorothiazide (Hydrochlorothiazide) 12.5 Mg Capsule, 12.5 MG PO DAILY Hydroxyurea (Hydroxyurea) 500 Mg Capsule, 500 MG PO DAILY, (Reported) Latanoprost (Xalatan) 0.005% 2.5ML Drops, 1 DROP OU QHS, (Reported) Metoprolol Tartrate (Metoprolol Tartrate) 25 Mg Tablet, 25 MG PO BID, (Reported) Nicotine (Nicotine Patch) 21 Mg Patch.td24, 1 PATCH TOP DAILY, (Reported) Pantoprazole Sodium (Pantoprazole Sodium) 40 Mg Tablet.dr, 40 MG PO DAILY, (Reported) Prochlorperazine Maleate (Prochlorperazine Maleate) 10 Mg Tablet, 10 MG PO Q6H Sertraline HCl (Sertraline HCl) 25 Mg Tablet, 25 MG PO DAILY, (Reported) Trazodone HCl (Trazodone HCl) 100 Mg Tablet, 100 MG PO QHS, (Reported) Allergies Coded Allergies: No Known Allergies (Unverified , 01/05/21) JAMAL SNYDER M.D. May 13, 2021 12:37
== END 2021-05-13 17:33 | disposition home health service (06) | DRG 776 ==
LOC: M ED 16:43 → M ED INP 05-12 00:46 → ENRESERV 05-12 01:05 → M 4MAIN 05-12 02:00
PROVIDERS: ADMIT Internal Medicine; ATTEND Internal Medicine
DX: F12.188 Cannabis abuse with other cannabis-induced disorder (principal); U07.1 COVID-19; E88.09 Other disorders of plasma-protein metabolism, not elsewhere classified; E87.1 Hypo-osmolality and hyponatremia; D75.839 Thrombocytosis, unspecified; R74.01 Elevation of levels of liver transaminase levels; I10 Essential (primary) hypertension; F32.A Depression, unspecified; Z79.899 Other long term (current) drug therapy; Z79.82 Long term (current) use of aspirin; Z95.2 Presence of prosthetic heart valve; J44.9 Chronic obstructive pulmonary disease, unspecified; I25.2 Old myocardial infarction; Z89.612 Acquired absence of left leg above knee; Z87.891 Personal history of nicotine dependence; E87.5 Hyperkalemia; F41.9 Anxiety disorder, unspecified; I25.10 Atherosclerotic heart disease of native coronary artery without angina pectoris; Z79.01 Long term (current) use of anticoagulants; R63.4 Abnormal weight loss

== ENCOUNTER 2021-05-14 18:46 | Observation (INO) | payer OTHER ==
[~2021-05-14 18:46] MED LIST changes: +ASPI81TA26 PO; +ERGO500029 PO; +NICO21PAT TOP; +PANT-23 PO; +SERT25TA21 PO; +XALA0.007 OU
[2021-05-14] MEDS ORDERED: NS 1,000 ML IV ONE (19:30)
[2021-05-14 20:04] LABS: BASO % 0.1 % (0.0-1.0); HEMATOCRIT 40.7 % (36.0-47.0); HEMOGLOBIN 14.6 g/dl (12.0-15.5); LYMPH % 13.2 % (24.0-44.0); MEAN CORPUSCULAR HEMOGLOBIN 40.4 pg (27.0-33.0); MEAN CORPUSCULAR HGB CONC 35.9 g/dl (32.0-36.5); MEAN CORPUSCULAR VOLUME 112.7 fl (80.0-96.0); MONO # 0.5 10^3/uL (0.0-0.8); MONO % 7.2 % (2.0-8.0); NEUTROPHILS # 5.9 10^3/uL (1.5-8.5); NEUTROPHILS % 78.7 % (36.0-66.0); PLATELET COUNT, AUTOMATED 309 10^3/uL (150-450); RED BLOOD COUNT 3.61 10^6/uL (4.00-5.40); WHITE BLOOD COUNT 7.5 10^3/uL (4.0-10.0)
[2021-05-14 20:07] LABS: ABG BASE EXCESS -0.6 (-2.0-2.0); ABG HCO3 21.5 MEQ/L (22.0-26.0); ABG O2 SATURATION 95.5 % (95.0-99.0); ABG PARTIAL PRESSURE CO2 28.9 mmHg (35.0-45.0); ABG PARTIAL PRESSURE O2 75.3 mmHg (75.0-100.0); ABG STANDARD HCO3 23.9 MEQ/L (22.0-26.0); ABG TOTAL CO2 22.4 MEQ/L (23.0-31.0)
[2021-05-14 20:36] LABS: ACETAMINOPHEN LEVEL < 2.0 UG/ML (10.0-30.0); ALBUMIN 2.8 GM/DL (3.2-5.2); ALT/SGPT 126 U/L (12-78); BILIRUBIN,DIRECT 0.4 MG/DL (0.0-0.2); BILIRUBIN,TOTAL 0.8 MG/DL (0.2-1.0); BLOOD UREA NITROGEN 6 MG/DL (7-18); CALCIUM LEVEL 8.6 MG/DL (8.8-10.2); CARBON DIOXIDE LEVEL 30 MEQ/L (21-32); CHLORIDE LEVEL 98 MEQ/L (98-107); CREATININE FOR GFR 0.54 MG/DL (0.55-1.30); ETHYL ALCOHOL (ETHANOL) < 0.003 % (0.000-0.010); GLOMERULAR FILTRATION RATE > 60.0 (>45); GLUCOSE, FASTING 113 MG/DL (70-100); POTASSIUM SERUM 4.1 MEQ/L (3.5-5.1); SALICYLATE LEVEL < 1.7 MG/DL (5.0-30.0); SODIUM LEVEL 134 MEQ/L (136-145)
--- NOTE | 2021-05-14 20:38 | REPVR ---
PROCEDURE INFORMATION: Exam: CT Head Without Contrast Exam date and time: 05/14/2021 7:58 PM Age: 60 years old Clinical indication: Altered mental status/memory loss TECHNIQUE: Imaging protocol: Computed tomography of the head without contrast. Radiation optimization: All CT scans at this facility use at least one of these dose optimization techniques: automated exposure control; mA and/or kV adjustment per patient size (includes targeted exams where dose is matched to clinical indication); or iterative reconstruction. COMPARISON: CT Head without contrast 01/15/2019 2:56 AM FINDINGS: Brain: There is moderate diffuse cerebellar atrophy. There is moderate age related parenchymal volume loss. White matter changes are demonstrated in the subcortical, centrum semiovale and periventricular white matter consistent with chronic age related small vessel ischemic changes. Cerebral ventricles: The degree of ventricular dilatation is normal for age and/or degree of atrophy present. Paranasal sinuses: Visualized sinuses are unremarkable. No fluid levels. Mastoid air cells: Visualized mastoid air cells are well aerated. Bones/joints: There is hyperostosis frontalis interna. Soft tissues: Unremarkable. IMPRESSION: 1. There is moderate diffuse cerebellar atrophy. 2. There is moderate age related parenchymal volume loss. White matter changes are demonstrated in the subcortical, centrum semiovale and periventricular white matter consistent with chronic age related small vessel ischemic changes. 3. The degree of ventricular dilatation is normal for age and/or degree of atrophy present. 4. No acute intracranial findings. Electronically signed by: Jad Agustin On 05/14/2021 20:37:52 PM
[2021-05-14] MEDS ORDERED: LATANOPROST 0.005% OPHTH SOLN 2.5 ML OU SCH (21:00)
--- NOTE | 2021-05-14 21:15 | REP ---
INDICATION: Altered Mental Status COMPARISON: 05/12/2021 TECHNIQUE: Portable AP view of the chest FINDINGS: The mediastinum and cardiac silhouette are stable and within normal limits for portable technique. The lung ambrose demonstrate chronic emphysematous changes. No consolidation or effusion. No pneumothorax. Skeletal structures are intact. IMPRESSION: No acute cardiopulmonary process appreciated. <Electronically signed by Douglas Vences > 05/14/212111
[2021-05-14 21:19] LABS: AMPHETAMINES LEVEL URINE NEGATIVE (NEGATIVE); BARBITURATES URINE NEGATIVE (NEGATIVE); BENZODIAZEPINES URINE NEGATIVE (NEGATIVE); CANNABINOIDS URINE POSITIVE (NEGATIVE); COCAINE METABOLITE URINE NEGATIVE (NEGATIVE); METHADONE URINE NEGATIVE (NEGATIVE); OPIATES URINE NEGATIVE (NEGATIVE); PHENCYCLIDINE URINE NEGATIVE (NEGATIVE)
[2021-05-14] MEDS ORDERED: cefTRIAXone SOD 1 GM in D5W MINI-BAG PLUS 50 ML IV ONE (21:40)
[2021-05-14] MEDS ORDERED: HOME MED LIST COMPLETE! XX SCH (21:50)
[2021-05-14] MEDS ORDERED: MAALOX 30 ML SUSP *UDC PO PRN (23:20)
[2021-05-14] MEDS ORDERED: ACETAMINOPHEN TAB 650MG DOSE (2X325MG) PO PRN (23:20)
[2021-05-14] MEDS ORDERED: MOM 30ML SUSPENSION UDC PO PRN (23:20)
--- NOTE | 2021-05-14 23:37 | HPEPDOC ---
General Date of Admission Date of Service: May 15, 2021 Attending Physician: ABDI MICHELLE MD Chief Complaint The patient is a 60-year-old female admitted with a reason for visit of Alt Mental Status. Source: Patient, RN/MD Exam Limitations: No limitations Timing/Duration: Other (This evening) Severity: Other (Not applicable) Associated Symptoms: Other (Altered mental status) History of Present Illness This is a 60 years old white female with past medical history of peripheral vascular disease s/p left AKA, celiac and SMA stenosis, hypertension, COPD, NSTEMI, [place] Subu cardiomyopathy, left ventricular thrombus, history of DVT was recently discharged from hospital yesterday but she was brought back as her daughter found her going around and around in her wheelchair and not knowing what she was doing. When I examined patient's daughter stated in ED she is alert oriented x3 and not sure about her altered mentation Patient denies any chest pain shortness of breath nausea vomiting abdominal pain etc. Home Medications Scheduled Apixaban (Eliquis) 5 Mg Tablet, 5 MG PO BID, (Reported) Aspirin (Aspirin EC) 81 Mg Tablet.dr, 81 MG PO DAILY, (Reported) Atorvastatin Calcium (Atorvastatin Calcium) 80 Mg Tablet, 80 MG PO DAILY, (Reported) Ergocalciferol (Vitamin D2) (Vitamin D2) 50,000 Units Cap, 50,000 UNITS PO QW [id number], (Reported) TUESDAY Gabapentin (Gabapentin) 400 Mg Capsule, 400 MG PO BID, (Reported) Hydrochlorothiazide (Hydrochlorothiazide) 12.5 Mg Capsule, 12.5 MG PO DAILY Hydroxyurea (Hydroxyurea) 500 Mg Capsule, 500 MG PO DAILY, (Reported) Latanoprost (Xalatan) 0.005% 2.5ML Drops, 1 DROP OU QHS, (Reported) Metoprolol Tartrate (Metoprolol Tartrate) 25 Mg Tablet, 25 MG PO BID, (Reported) Nicotine (Nicotine Patch) 21 Mg Patch.td24, 1 PATCH TOP DAILY, (Reported) Pantoprazole Sodium (Pantoprazole Sodium) 40 Mg Tablet.dr, 40 MG PO DAILY, (Reported) Prochlorperazine Maleate (Prochlorperazine Maleate) 10 Mg Tablet, 10 MG PO Q6H Sertraline HCl (Sertraline HCl) 25 Mg Tablet, 25 MG PO DAILY, (Reported) Trazodone HCl (Trazodone HCl) 100 Mg Tablet, 100 MG PO QHS, (Reported) Allergies Coded Allergies: No Known Allergies (Unverified , 01/05/21) Past Medical History Medical History Peripheral vascular disease left leg claudication celiac and SMA stenosis, hypertension, COPD, NSTEMI, cardiomyopathy left ventricular thrombosis history of DVT Surgical History Multiple cardiac stents angioplasties camera left AKA, right leg fasciectomy Social History * Smoker: current smoker, greater than 1 pack/day Alcohol: Denies Drugs: other (Patient denies any drug use at the current time when asked multiple times) A-FIB/CHADSVASC A-FIB History Current/History of A-Fib/PAF?: No Review of Systems Constitutional: Denies: Chills, Fever, Malaise, Night Sweats, Weakness, Fatigue, Weight Loss, Lethargy, Other Eyes: Denies: Pain, Vision change, Conjunctivae inflammation, Eyelid inflammation, Redness, Other ENT: Denies: Head Aches, Ear Pain, Dysphagia, Sinus Congestion, Post Nasal Drip, Sore Throat, Epistaxis, Other Symptoms Skin: Denies: Rash, Lesions, Jaundice, Bruising, Itching, Dry, Breakdown, Nail Changes, Other Pulmonary: Denies: Dyspnea, Cough, Pleuritic Chest Pain, Other Symptoms Cardiovascular: Denies: Chest Pain, Palpitations, Orthopnea, Paroxysmal Noc. Dyspnea, Edema, Lt Headedness, Other Symptoms Gastrointestinal: Denies: Nausea, Vomiting, Abdominal Pain, Diarrhea, Constipation, Melena, Hematochezia, Other Symptoms Hematologic: Denies: Bruising, Bleeding Excessively, Petecchia, Purpura, Enlarged Lymph Nodes, Other Hematologic Endocrine: Denies: Polydipsia, Polyphagia, Polyuria, Heat Intolerance, Cold Intolerance, Other Endocrine Sx Musculoskeletal: Denies: Neck Pain, Back Pain, Joint Pain, Muscle Pain, Spasms Neurological: Reports: Other Symptoms (Altered mentation as per family) Psych: Denies: Mood Normal, Anxiety, Depression, Memory Issues, Thoughts of Self Harm, Anger, Thoughts of Harming Other, Other Psych Physical Examination General Exam: Positive: No Acute Distress Eye Exam: Positive: PERRLA, Conjunctiva & lids normal ENT Exam: Positive: Atraumatic Neck Exam: Positive: Supple Chest Exam: Positive: Clear to auscultation, Normal air movement Heart Exam: Positive: Rate Normal, Normal S1, Normal S2 Abdomen Exam: Positive: Soft Extremity Exam: Positive: Other (No clubbing sinus edema) Skin Exam: Positive: Nl turgor and temperature Neuro Exam: Positive: Normal Gait, Normal Speech Psych Exam: Positive: Mental status NL, Oriented x 3 Vital Signs Vital Signs Date Time Temp Pulse Resp B/P (MAP) Pulse Ox O2 Delivery O2 Flow Rate FiO2 05/14/21 21:30 89 162/89 (113) 100 05/14/21 21:00 16 05/14/21 20:14 97.6 Room Air Laboratory Data Labs 24H Laboratory Tests 2 05/14/21 19:29: Anion Gap 6L, Glomerular Filtration Rate > 60.0, Calcium Level 8.6L, Total Bilirubin 0.8, Direct Bilirubin 0.4H, Aspartate Amino Transf (AST/SGOT) 28, Alanine Aminotransferase (ALT/SGPT) 126H, Alkaline Phosphatase 116, Total Protein 6.0L, Albumin 2.8#L, Albumin/Globulin Ratio 0.9L, Thyroid Stimulating Hormone (TSH) 2.060, Salicylates Level < 1.7L, Acetaminophen Level < 2.0L, Ethyl Alcohol Level < 0.003 05/14/21 19:48: Blood Gas Bicarbonate Standard 23.9, Arterial Blood pH 7.490H, Arterial Blood Partial Pressure CO2 28.9L, Arterial Blood Partial Pressure O2 75.3, Arterial Blood Total CO2 22.4L, Arterial Blood HCO3 21.5L, Arterial Blood Base Excess - 0.6, Arterial Blood Oxygen Saturation 95.5 05/14/21 19:49: Bedside Glucose (Misc Panel) 110 05/14/21 19:52: POC Troponin I (Misc) 0.01 05/14/21 19:55: Immature Granulocyte % (Auto) 0.8, Neutrophils (%) (Auto) 78.7H, Lymphocytes (%) (Auto) 13.2L, Monocytes (%) (Auto) 7.2, Eosinophils (%) (Auto) 0.0, Basophils (%) (Auto) 0.1, Neutrophils # (Auto) 5.9, Lymphocytes # (Auto) 1.0L, Monocytes # (Auto) 0.5, Eosinophils # (Auto) 0.0, Basophils # (Auto) 0.0, Nucleated Red Blood Cells % (auto) 0.0, Lactic Acid Level 1.9, Ammonia < 10 05/14/21 21:02: Urine Color YELLOW, Urine Appearance HAZY, Urine pH 7.0, Urine Specific [place] 1.003, Urine Protein NEGATIVE, Urine Glucose (UA) NEGATIVE, Urine Ketones NEGATIVE, Urine Blood 1+H, Urine Nitrite POSITIVEH, Urine Bilirubin NEGATIVE, Urine Urobilinogen 0.2, Urine Leukocyte Esterase 3+H, Urine WBC (Auto) 30H, Urine RBC (Auto) 5H, Urine Hyaline Casts (Auto) 0, Urine Bacteria (Auto) 2+H, Urine Squamous Epithelial Cells 1, Urine Sperm (Auto) , Urine Opiates Screen NEGATIVE, Urine Methadone Screen NEGATIVE, Urine Barbiturates Screen NEGATIVE, Urine Phencyclidine Screen NEGATIVE, Urine Amphetamines Screen NEGATIVE, Urine Benzodiazepines Screen NEGATIVE, Urine Cocaine Metabolite Screen NEGATIVE, Urine Cannabinoids Screen POSITIVEH CBC/BMP Laboratory Tests 05/14/21 19:29 05/14/21 19:55 Microbiology Microbiology 05/14/21 Urine Culture, Received Pending Assessment/Plan This is a 60 years old white female with past medical history of peripheral vascular disease s/p left AKA, celiac and SMA stenosis, hypertension, COPD, NSTEMI, [place] Subu cardiomyopathy, left ventricular thrombus, history of DVT was recently discharged from hospital yesterday but she was brought back as her daughter found her going around and around in her wheelchair and not knowing what she was doing. When I examined patient's daughter stated in ED she is alert oriented x3 and not sure about her altered mentation Patient denies any chest pain shortness of breath nausea vomiting abdominal pain etc. We were called by ED physician to admit this patient with a diagnosis of UTI and Covid. #1 Altered mental status of unknown etiology: Resolved #2 Covid positive since 05/11: Asymptomatic #3 UTI #4 positive cannabinoids in urine tox screen: Patient denies marijuana use [facility] On clinical examination patient's altered mentation has completely resolved she is alert oriented x3 in no apparent distress so no further work-up is indicated at the present time Patient does have a positive cannabinoids in her urine tox even though she bluntly refuses using marijuana but she does have a history of frequent nausea vomiting which also could be secondary to marijuana use. Patient will probably require outpatient drug and alcohol counseling when she is discharged from the hospital We will start patient on Rocephin 1 g IV every 24 hours for UTI Urine cultures will be ordered And will start her in droplet and contact isolation for Covid but she remains asymptomatic so far Nicotine replacement therapy for smoking, smoking cessation and marijuana cessation counseling was done at bedside during my interview. Physical therapy evaluation in a.m. CBC CMP magnesium level in a.m. DVT prophylaxis: Patient already on novel anticoagulant Diet is regular Activity as per physical therapy Problems (1) UTI (urinary tract infection) Status: Acute (2) Altered mental status Status: Resolved Plan / VTE VTE Prophylaxis Ordered?: Yes ABDI MICHELLE MD May 14, 2021 23:37
[2021-05-15] MEDS: PROCHLORPERAZINE 5 MG TAB (S0183) PO SCH ×3 (06:00→12:00)
[2021-05-15] MEDS ORDERED: ATORVASTATIN 20 MG TAB PO SCH (09:00)
[2021-05-15] MEDS ORDERED: DOCUSATE SODIUM 100MG CAPSULE PO SCH (09:00)
[2021-05-15] MEDS ORDERED: APIXABAN 5 MG TAB (ELIQUIS) PO SCH (09:00)
[2021-05-15] MEDS ORDERED: NICOTINE 21MG/24HR 1 EA TRANSDERMAL TOP SCH (09:00)
[2021-05-15] MEDS ORDERED: cefTRIAXone SOD 1 GM in D5W MINI-BAG PLUS 50 ML IV SCH ×2 (09:00→21:00)
[2021-05-15] MEDS ORDERED: METOPROLOL TART 25 MG TABLET PO SCH (09:00)
[2021-05-15] MEDS ORDERED: PANTOPRAZOLE 40MG TAB (PROTONIX) PO SCH (09:00)
[2021-05-15] MEDS ORDERED: ENOXAPARIN 40MG/0.4ML SYRINGE (J1650 PER 10MG) SC SCH (09:00)
[2021-05-15] MEDS ORDERED: hydroCHLOROthiazide 12.5 MG CAPSULE PO SCH (09:00)
[2021-05-15] MEDS ORDERED: GABAPENTIN 400MG CAP PO SCH (09:00)
[2021-05-15] MEDS ORDERED: HYDROXYUREA 500 MG CAP PO SCH (09:00)
[2021-05-15] MEDS ORDERED: SERTRALINE HCL 25 MG TABLET PO SCH (09:00)
[2021-05-15] MEDS ORDERED: ASPIRIN 81MG ENTERIC TABLET PO SCH (09:00)
[2021-05-15 09:04] LABS: ALBUMIN 2.6 GM/DL (3.2-5.2); ALT/SGPT 104 U/L (12-78); BILIRUBIN,TOTAL 0.8 MG/DL (0.2-1.0); BLOOD UREA NITROGEN 3 MG/DL (7-18); CALCIUM LEVEL 8.5 MG/DL (8.8-10.2); CARBON DIOXIDE LEVEL 26 MEQ/L (21-32); CHLORIDE LEVEL 99 MEQ/L (98-107); CREATININE FOR GFR 0.44 MG/DL (0.55-1.30); GLOMERULAR FILTRATION RATE > 60.0 (>45); GLUCOSE, FASTING 80 MG/DL (70-100); MAGNESIUM LEVEL 1.9 MG/DL (1.8-2.4); POTASSIUM SERUM 3.8 MEQ/L (3.5-5.1); SODIUM LEVEL 133 MEQ/L (136-145); TOTAL PROTEIN 5.8 GM/DL (6.4-8.2)
[2021-05-15 11:30] VITALS: BP 114/77
[2021-05-15] MEDS ORDERED: CEFD1CAP8 PO (15:02)
--- NOTE | 2021-05-15 16:56 | DS.PDOC ---
Discharge Summary General Date of Admission May 14, 2021 at 18:47 Date of Discharge 05/15/2021 Discharge Summary PROCEDURES PERFORMED DURING STAY: [None]. ADMITTING DIAGNOSES / DISCHARGE DIAGNOSES: s/p AMS - possibly 2/2 marijuana, possibly 2/2 UTI Abnormal UA Asymptomatic COVID19 Chronic Hyponatremia Recent admission for Cannibis induced hyperemesis Transaminitis - possibly 2/2 COVID19 HTN Depression / Anxiety CAD (Hx of NSTEMI) / Cardiomyopathy / PVD s/p L AKA / Celiac and SMA Stenosis COPD Hx of DVT / Thrombus Neuropathy GERD DVT prophylaxis COMPLICATIONS/CHIEF COMPLAINT: Reported confusion HISTORY OF PRESENT ILLNESS: Patient is a 60-year-old female with a PMHx of HTN, CAD (Hx of NSTEMI), Cardiomyopathy, Hx of LV thrombus, PVD s/p L AKA, Hx of DVT, Celiac and SMA Stenosis, COPD, who presented to the ER because of reported confusion. Of note, patient was recently at [facility] from 05/12 to 05/13 with cannabinoid hyperemesis. It was reported by the patient's daughter that her mother was going around and around in her wheelchair and not knowing what was going on., However upon arrival to emergency room, an evaluation by admitting physician. Patient was oriented 3. Patient was placed on observation status to the hospital service for further evaluation and treatment. Patient was seen and examined at the bedside. Currently patient appears to be fully oriented to person, place, time and president. Patient had voiced that yesterday she did smoke marijuana and that may have in the reason, she was acting strange. Patient denied any nausea, vomiting, chest pain, shortness of breath or cough. She denies any abdominal discomfort, diarrhea, or urinary discomfort. HOSPITAL COURSE: s/p AMS - possibly 2/2 marijuana, possibly 2/2 UTI - Currently patient is fully oriented to person, place and time - No focal deficits - Hemodynamically stable and afebrile - Imaging noted below Abnormal UA - Possibly asymptomatic bacteriuria - Patient denies any urinary discomfort / frequency - UA abnormal / Urine cultures remains pending - s/p Ceftriaxone; c/w Antibiotics on discharge for completion of course Asymptomatic COVID19 - Patient denies any chest pain, short of breath, palpitations - Saturating well on room air - has received 2 doses of the COVID19 vaccine - c/w Supportive care - s/p Monoclonal antibodies on prior admission Chronic Hyponatremia - Dates back to 2019 - Appears relatively stable - Will discontinue the use of HCTZ Recent admission for Cannibis induced hyperemesis - Patient has not had any nausea or vomiting since admission - Patient was able to tolerate a meal without vomiting - Physical without any abdominal tenderness - Patient has been advised to abstain from use of marijuana Transaminitis - possibly 2/2 COVID19 - Liver profile completed on recent admission was negative - Continues to improve from prior admission HTN - BP appears well controlled - Discontinue HCTZ on discharge - c/w Metoprolol Depression / Anxiety - She denies any suicidal ideation - c/w Sertraline - Patient was seen and evaluated by psychiatry this morning. I have called and discussed the case with Dr. Fields; no evidence of suicidal ideation / thoughts of self harm - 11 outpatient follow-up with psychiatry CAD (Hx of NSTEMI) / Cardiomyopathy / PVD s/p L AKA / Celiac and SMA Stenosis - c/w Eliquis, ASA 81, Atorvastatin, Metoprolol COPD - No evidence of exacerbation - c/w inhaled therapy as ordered Hx of DVT / Thrombus - c/w Eliquis Neuropathy - c/w Gabapentin GERD - c/w Protonix DVT prophylaxis - c/w Eliquis DISCHARGE MEDICATIONS: Please see below. ALLERGIES: Please see below. PHYSICAL EXAMINATION ON DISCHARGE: Vitals (See below) General: Lying in bed, appears comfortable, AAOx3 HEENT: NC, AT CVS: +S1S2 Lungs: Fair air entry b/l, no evidence of wheezing, rales or rhonchi Abdomen: Soft, ND, NT Extremities: L AKA, no evidence of edema, right lower extremity LABORATORY DATA: Please see below. IMAGING: CXR 05/15: No acute cardiopulmonary process appreciated. CT Head 05/15: 1. There is moderate diffuse cerebellar atrophy. 2. There is moderate age related parenchymal volume loss. White matter changes are demonstrated in the subcortical, centrum semiovale and periventricular white matter consistent with chronic age related small vessel ischemic changes. 3. The degree of ventricular dilatation is normal for age and/or degree of atrophy present. 4. No acute intracranial findings. ACTIVITY: [As tolerated]. DISCHARGE PLAN: Follow-up with primary care provider in psychiatry within the next 7 days Remain compliant with treatment plan and medications Return to the ER if you experience any problems DISPOSITION: Home with services DISCHARGE CONDITION: [Stable]. TIME SPENT ON DISCHARGE: 35 minutes. Vital Signs/I&Os Vital Signs Date Time Temp Pulse Resp B/P (MAP) Pulse Ox O2 Delivery O2 Flow Rate FiO2 05/15/21 11:30 76 16 114/77 (89) 97 Room Air 05/15/21 07:30 97.2 I&O- Last 24 Hours up to 6 AM 05/15/21 05:59 Output Total 200 ml Balance -200 ml Laboratory Data Labs 24H Laboratory Tests 2 05/14/21 19:29: Anion Gap 6L, Glomerular Filtration Rate > 60.0, Calcium Level 8.6L, Total Jean-Paul irubin 0.8, Direct Bilirubin 0.4H, Aspartate Amino Transf (AST/SGOT) 28, Alanine Aminotransferase (ALT/SGPT) 126H, Alkaline Phosphatase 116, Total Protein 6.0L, Albumin 2.8#L, Albumin/Globulin Ratio 0.9L, Thyroid Stimulating Hormone (TSH) 2.060, Salicylates Level < 1.7L, Acetaminophen Level < 2.0L, Ethyl Alcohol Level < 0.003 05/14/21 19:48: Blood Gas Bicarbonate Standard 23.9, Arterial Blood pH 7.490H, Arterial Blood Partial Pressure CO2 28.9L, Arterial Blood Partial Pressure O2 75.3, Arterial Blood Total CO2 22.4L, Arterial Blood HCO3 21.5L, Arterial Blood Base Excess - 0.6, Arterial Blood Oxygen Saturation 95.5 05/14/21 19:49: Bedside Glucose (Misc Panel) 110 05/14/21 19:52: POC Troponin I (Misc) 0.01 05/14/21 19:55: Immature Granulocyte % (Auto) 0.8, Neutrophils (%) (Auto) 78.7H, Lymphocytes (%) (Auto) 13.2L, Monocytes (%) (Auto) 7.2, Eosinophils (%) (Auto) 0.0, Basophils (%) (Auto) 0.1, Neutrophils # (Auto) 5.9, Lymphocytes # (Auto) 1.0L, Monocytes # (Auto) 0.5, Eosinophils # (Auto) 0.0, Basophils # (Auto) 0.0, Nucleated Red Blood Cells % (auto) 0.0, Lactic Acid Level 1.9, Ammonia < 10 05/14/21 21:02: Urine Color YELLOW, Urine Appearance HAZY, Urine pH 7.0, Urine Specific Chunky 1.003, Urine Protein NEGATIVE, Urine Glucose (UA) NEGATIVE, Urine Ketones NEGATIVE, Urine Blood 1+H, Urine Nitrite POSITIVEH, Urine Bilirubin NEGATIVE, Urine Urobilinogen 0.2, Urine Leukocyte Esterase 3+H, Urine WBC (Auto) 30H, Urine RBC (Auto) 5H, Urine Hyaline Casts (Auto) 0, Urine Bacteria (Auto) 2+H, Urine Squamous Epithelial Cells 1, Urine Sperm (Auto) , Urine Opiates Screen NEGATIVE, Urine Methadone Screen NEGATIVE, Urine Barbiturates Screen NEGATIVE, Urine Phencyclidine Screen NEGATIVE, Urine Amphetamines Screen NEGATIVE, Urine Benzodiazepines Screen NEGATIVE, Urine Cocaine Metabolite Screen NEGATIVE, Urine Cannabinoids Screen POSITIVEH 05/15/21 08:17: Anion Gap 8, Glomerular Filtration Rate > 60.0, Calcium Level 8.5L, Magnesium Level 1.9, Total Bilirubin 0.8, Aspartate Amino Transf (AST/SGOT) 27, Alanine Aminotransferase (ALT/SGPT) 104H, Alkaline Phosphatase 115, Total Protein 5.8L, Albumin 2.6L, Albumin/Globulin Ratio 0.8L CBC/BMP Laboratory Tests 05/14/21 19:29 05/14/21 19:55 05/15/21 08:17 FSBS Laboratory Tests Test 05/14/21 19:49 Range/Units Bedside Glucose (Misc Panel) 110 80-115 MG/DL Microbiology Microbiology 05/14/21 Urine Culture, Received Pending 05/14/21 Urine Culture, Received Pending Discharge Medications Scheduled Apixaban (Eliquis) 5 Mg Tablet, 5 MG PO BID, (Reported) Aspirin (Aspirin EC) 81 Mg Tablet.dr, 81 MG PO DAILY, (Reported) Atorvastatin Calcium (Atorvastatin Calcium) 80 Mg Tablet, 80 MG PO DAILY, (Reported) Cefdinir (Cefdinir) 300 Mg Capsule, 1 CAP PO BID Ergocalciferol (Vitamin D2) (Vitamin D2) 50,000 Units Cap, 50,000 UNITS PO QWEEK, (Reported) TUESDAY Gabapentin (Gabapentin) 400 Mg Capsule, 400 MG PO BID, (Reported) Hydrochlorothiazide (Hydrochlorothiazide) 12.5 Mg Capsule, 12.5 MG PO DAILY Hydroxyurea (Hydroxyurea) 500 Mg Capsule, 500 MG PO DAILY, (Reported) Latanoprost (Xalatan) 0.005% 2.5ML Drops, 1 DROP OU QHS, (Reported) Metoprolol Tartrate (Metoprolol Tartrate) 25 Mg Tablet, 25 MG PO BID, (Reported) Nicotine (Nicotine Patch) 21 Mg Patch.td24, 1 PATCH TOP DAILY, (Reported) Pantoprazole Sodium (Pantoprazole Sodium) 40 Mg Tablet.dr, 40 MG PO DAILY, (Reported) Prochlorperazine Maleate (Prochlorperazine Maleate) 10 Mg Tablet, 10 MG PO Q6H Sertraline HCl (Sertraline HCl) 25 Mg Tablet, 25 MG PO DAILY, (Reported) Trazodone HCl (Trazodone HCl) 100 Mg Tablet, 100 MG PO QHS, (Reported) Allergies Coded Allergies: No Known Allergies (Unverified , 01/05/21) IRAIDA DIA MD May 15, 2021 16:56
[2021-05-15] MEDS ORDERED: traZODone 100 MG TAB PO SCH (21:00)
--- NOTE | 2021-05-16 07:42 | ECGEPIP ---
[facility] - ED Test Date: 2021-05-14 Pat Name: JORDYN MURILLO Department: Room: 0102 Gender: Female Professional System Administrator: SHRUTHI : 1960 Requested By: YOBANI Richmond Order Number: [id number] Reading MD: Comfort Quintero Measurements Intervals [place] Rate: 96 P: 69 WA: 130 QRS: -41 QRSD: 66 T: 65 QT: 392 QTc: 495 Interpretive Statements Sinus rhythm with premature atrial complexes with aberrant conduction Left axis deviation Anteroseptal infarct , age undetermined lad possible prior inferior infarct increased rate 05/12/21 Electronically Signed on 05-16-2021 7:41:49 EST by Comfort Quintero
--- NOTE | 2021-05-16 09:31 | MHCR ---
ER PSYCHIATRIC CONSULTATION DATE: 05/15/2021 HISTORY OF PRESENT ILLNESS: This is a 60-year-old white female seen in the emergency room at the request of Dr. Hoyt, phone number [phone]. The patient comes to the emergency room at the urging of her daughter who is concerned about the patient being confused and not compliant with her medications. The patient was just hospitalized here at [facility] with diagnosis of COVID-19, electrolyte abnormality and cannabinoid hyperemesis. The patient lives by herself but does have a boyfriend who helps fill her pillbox and helps her with cooking and cleaning. According to Dr. Hoyt the patient was confused and disoriented per the daughter but has shown no signs of such here in the emergency room. The patient states she is medication compliant. She does have a pillbox which is filled by her boyfriend Julian. The patient is currently on Sertraline 25 mg per day. She is not sure how long she has been on it. The patient does report history of some depression ever since the loss of her 9 years ago. The patient appears to be showing a delayed grief response. The patient does like to smoke marijuana on a regular basis. Apparently the daughter is concerned about this as well. The patient herself minimizes this as being an issue. MENTAL STATUS EXAM: The patient is alert. She is fully oriented to person, place and date. Her fund of information is good. She knows that Derik is the president and that [place] is the capital of [facility]. She recalls 3/3 objects at 5 minutes. Cognitive functions appear to be intact. She does become weepy talking about her . She is not suicidal. She is not homicidal. No signs of psychosis. Reality testing intact. Insight adjustments appear adequate. No signs of dangerousness. Grooming and hygiene are fair. No signs of impulsivity or behavioral disturbance. DIAGNOSIS: Depressive disorder unspecified. ASSESSMENT: There are no signs of organicity for this patient at this time. It is unclear where the report of confusion from the family derives from. She shows no signs of memory deficits, short or long-term. She does show some depressive grief symptoms from the loss of her . Perhaps the daughter is concerned that the patient is living by herself and might function better in a rehab facility where the staff can assure medication compliance and where she will not have access to cannabis. PLAN: One option to consider is increasing her Sertraline to 50 mg per day; this might help with her residual depressive symptoms and help with her appetite. If the family is not happy with her functioning on her own in the community then perhaps a referral to a rehab or longterm situation would be in order. At this point in time there appears to be no major psychiatric issues.
[2021-05-17] MEDS ORDERED: VITAMIN D 50,000 UNITS CAPSULE (ERGOCALCIFEROL 1.25MG) PO SCH (09:00)
== END 2021-05-15 17:07 | disposition home or self-care (01) ==
LOC: M ED 18:46 → M ED INP 18:47 → ENRESERV 05-15 11:42 → M 4MAIN 05-15 12:14
PROVIDERS: ADMIT Internal Medicine; ATTEND Internal Medicine
DX: R41.82 Altered mental status, unspecified (principal); F12.10 Cannabis abuse, uncomplicated; N39.0 Urinary tract infection, site not specified; R82.90 Unspecified abnormal findings in urine; E87.1 Hypo-osmolality and hyponatremia; R74.01 Elevation of levels of liver transaminase levels; I10 Essential (primary) hypertension; F32.9 Major depressive disorder, single episode, unspecified; F41.9 Anxiety disorder, unspecified; I25.10 Atherosclerotic heart disease of native coronary artery without angina pectoris; I25.2 Old myocardial infarction; J44.9 Chronic obstructive pulmonary disease, unspecified; Z86.73 Personal history of transient ischemic attack (TIA), and cerebral infarction without residual deficits; G62.9 Polyneuropathy, unspecified; K21.9 Gastro-esophageal reflux disease without esophagitis; Z79.01 Long term (current) use of anticoagulants; I73.9 Peripheral vascular disease, unspecified; I42.9 Cardiomyopathy, unspecified; F17.218 Nicotine dependence, cigarettes, with other nicotine-induced disorders; Z79.899 Other long term (current) drug therapy; Z79.82 Long term (current) use of aspirin; Z98.61 Coronary angioplasty status
CPT/HCPCS: 36415; 36600; 51701; 70450; 71045; 80048; 80053; 80076; 80143; 80307; 81001; 82077; 82140; 82803; 83605; 83735; 84443; 85025; 87088; 87186; 93005; 93041; 96365; 96375; 97161; 97530; 99285; J0696